=== PATIENT | male | born 1960 | race Caucasian/White ===

== ENCOUNTER 2024-04-22 07:13 | Inpatient (IN) ==
--- OUTSIDE RECORDS SUMMARY | 2024-04-22 07:20 | External Medical Summary | Summary of Care ---
Author Name Unknown Organization [facility] Address [address] [facility] [place] [address] Phone [phone] Care Team Providers Care Sex Therapist Name Role Phone Luda Floyd DO Primary Care Provider [phone] Reason for Visit * Reason Onset Date Comments Medication Refill 04/09/2024 Encounter Details Date Type Department Care Team (Late st Contact Info) Description 04/09/2024 [facility]ill [facility] [address] [facility] [place] [phone] Luda Floyd DO [address] [facility] [place] [id number] Dyslipidemia, goal LDL below 100 Allergies No known active allergiesdocumented as of this encounter (statuses as of 04/10/2024) Medications Lisinopril 10 MG Oral Tablet (Prinivil)Indicat ions:Essential hypertension with goal blood pressure less than 140/90 Take 1 Tablet by mouth in the morning. 90 Tablet 3 4 Active Metoprolol Succinate ER 50 MG Oral Tablet Extended Release 24 Hour (toPROL XL)Indications:HT N, goal below 140/90 TAKE 1 TABLET BY MOUTH EVERY MORNING 90 Tablet 3 4 Active Eliquis 5 MG Oral Tablet (Apixaban)Indicat ions:Paroxysmal atrial fibrillation (HCC) TAKE 1 TABLET BY MOUTH TWICE DAILY EVERY MORNING AND BEFORE BEDTIME 180 Tablet 3 4 Active amLODIPine Besylate 5 MG Oral Tablet (Norvasc)Indicati ons:Palpitations, Left chest pressure,Diastoli c dysfunction TAKE ONE TABLET BY MOUTH EVERY MORNING 90 Tablet 1 4 Active Famotidine 20 MG Oral Tablet (Pepcid)Indicatio ns:Gastroesophage al reflux disease without esophagitis TAKE ONE TABLET BY MOUTH NIGHTLY AT BEDTIME 90 Tablet 1 5 Active Pantoprazole Sodium 20 MG Oral Tablet Delayed Release (Protonix)Indicat ions:Gastroesopha geal reflux disease without esophagitis TAKE 1 TABLET BY MOUTH TWICE DAILY every morning and every evening 180 Tablet 1 04/06/2024 6:35 PM EST 5 Active Multivitamin Adult Oral Tablet Take by mouth. Active Atorvastatin Calcium 10 MG Oral Tablet (Lipitor)Indicati ons:Dyslipidemia, goal LDL below 100 Take 1 Tablet by mouth in the morning. 90 Tablet 3 5 Active Atorvastatin Calcium 10 MG Oral Tablet (Lipitor)Indicati ons:Dyslipidemia, goal LDL below 100 Take 1 Tablet by mouth in the morning. 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 Diastolic dysfunction 10/26/2011 Abnormal electrocardiogram 04/24/2011 Dyslipidemia, goal LDL below 100 HTN, goal below 140/90 documented as of this encounter (statuses as of 04/10/2024) Resolved Problems Problem Noted Date Diagnosed Date Resolved Date Dermatitis 01/30/2016 02/04/2017 Palpitations 08/13/2015 02/04/2017 Left chest pressure 07/11/2015 02/05/20 17 Screening for prostate cancer 07/11/2015 02/04/2017 Overweight (BMI 25.0-29.9) 12/07/2014 1 04/07/2016 Overview (12/07/2014): bmi= 25.52 12/07/[address] of liver 12/07/2014 12/07/2 017 Need for shingles vaccine 12/07/2014 Abnormal serum lipase level 10/03/2014 02/04/2017 Abnormal results of liver function studies 10/03/2014 02/04/2017 Cervicalgia 05/31/2014 02/04/2017 Screen for colon cancer 05/31/201408/29 Special screening for malign ant neoplasm of prostate 05/31/2014 09/08/2014 INFORMATION 05/31/2014 02/04/2017 Overview (05/31/2014): 10-year-old cardiovascular risk is 9% Spasm of muscle 12/20/2013 12/07/2014 Chest discomfort 06/26/2013 12/07/2014 Overweight (BMI 25.0-29.9) 05/26/2013 1 04/07/2016 Overview (05/26/2013): bmi= 26.78 05/26/13 Rectal hemorrhage 11/25/2012 12/07/2014 Internal hemorrhoids with other complication 3 12/07/2014 Hand dermatitis 05/05/2012 02/04/2017 Refused influenza vaccine 12/09/2011 Overweight (BMI 25.0-29.9) 10/26/2011 1 04/07/2016 Overview (10/26/2011): bmi= 26.71 10/26/11 Routine medical exam 10/26/2011 015 Special screening for malign ant neoplasm of prostate 10/26/2011 09/08/2014 Screen for colon cancer 10/26/201108/29 Gastroesophageal reflux 10/26/2011/04/2013 Special screening for malign ant neoplasm of prostate 04/24/2011 05/26/2013 DIASTOLIC DYSFUNCTION 04/24/20112011 OVERWEIGHT, BMI= 26.08 10/22/10 10/22/2010 02/04/2017 Esophageal reflux 07/22/2010 10/26/2011 Chest pain 06/30/2010 12/07/2014 Headache 06/30/2010 09/08/2014 Overview (05/22/2015): ICD-10 update of inactive term DIASTOLIC DYSFUNCTION 06/02/20102010 OVERWEIGHT, BMI= 26.92 05/26/10 05/26/2010 12/07/2014 Abnormal electrocardiogram 05/26/2010 0 04/24/2011 Elevated prostate specific antigen (PSA) 05/26/2010 11/30/2013 Special screening for malign ant neoplasms, colon 05/26/2010 09/08/2014 CLASSICAL MIGRAINE WITHOU ME NTION OF INTRACTABLE MIGRAINE 01/30/1998 12/07/2014 Esophagitis 10/22/2010 Overview (11/30/2016): ICD-10 update of inactive term HTN, goal below 140/90 11/25 Cluster headaches 12/07/2014 Kidney disease, chronic, sta ge II (GFR 60-89 ml/min) 12/09/2011 documented as of this encounter (statuses as of 04/10/2024) Immunizations Name Administration Dates Next Due COVID-19 mRNA, LNP-s, No Pre serve, 2-Dose Series (Moderna) 07/18/2020,06/20/2020 TDAP (age 10 and older)(Boostrix) 03/15/2012 Zoster Vaccine Recombinant (Shingrix) 01/29/2022 ,09/07/2019 documented as of this encounter Social History Tobacco Use Types Packs/Day Years Used Date Smoking Tobacco: Never Passive Smoke Exposure: Past Smokeless Tobacco: Never Alcohol Use Standard Drinks/Week Comments Yes 0 (1 standard drink = 0.6 oz pur e alcohol) 3 beers per year PHQ-2 Answer Date Recorded PHQ-2 Score 1 03/13/2018 Hunger Vital Sign Answer Date Recorded Within the past 12 months, y ou worried that your food would run out before you got the money to buy more. Never true 08/03/19 24 Within the past 12 months, t he food you bought just didn't last and you didn't have money to get more. Never true 08/03/2023 Childcare Answer Date Recorded Do you feel overwhelmed with taking care of a child, family member or friend? No 08/03/2023 Does your family need help f inding childcare? (Household - for ages 0-17 years) Not on file 08/03/2023 Clothing Answer Date Recorded Have you been unable to get clothing when it was really needed? No 08/03/2023 Is your family able to get c lothes or diapers when needed? (Household - for ages 0-17 years) Not on file 08/03/2023 Personal Safety Answer Date Recorded Do you feel unsafe or have concerns for your saf ety? No 08/03/2023 Do you have concerns for you r family's safety? (Household - for ages 0-17 years) Not on file 08/03/2023 Utilities Answer Date Recorded Do you have trouble paying y our heating, water, or electric bill? No 08/03/2023 Is your family able to pay t he heat, water, or electric bill? (Household - for ages 0-17 years) Not on file 08/03/2023 Does your family have access to good internet? (Household - for ages 0-17 years) Not on file 08/03/2023 Employment Status Answer Date Recorded Are you unemployed or without regular income? No 08/03/2023 Does the household have a re lar source of income? (Household - for ages 0-17 years) Not on file 08/03/2023 Social Connections Answer Date Recorded How often do you feel lonely or isolated from th ose around you? Never 08/03/2023 Financial Resource Strain Answer Date R ecorded Do you have any trouble payi ng for your medications, or do you think you might in the future? No 08/03/2023 Does your family have troubl e paying for medicine? (Household - for ages 0-17 years) Not on file 08/03/2023 Transportation Needs Answer Date Record ed READ ONLY Do you have troubl e getting a ride to medical visits or work? Never True 08/03/2023 Does your family have a hard time getting a ride to doctors visits? (Household - for ages 0-17 years) Not on file 08/03/2023 Has lack of transportation k ept you from medical appointments, meetings, work, or from getting things needed for daily living? Check all that apply. (Adult - for ages 18 years and over) Not on file 08/03/2023 Do you (or your family) have trouble finding or paying for a ride (transportation)? (Household - for ages 0-17 years) Not on file 08/03/2023 Housing Stability Answer Date Recorded Do you currently live in a s helter or have no steady place to sleep at night? No 08/03/2023 READ ONLY Do you think you a re at risk of becoming homeless? No 08/03/2023 Does your family worry about paying for your home or becoming homeless? (Household - for ages 0-17 years) Not on file 0 08/03/2023 Are you homeless or worried that you might be in the future? (Adult - for ages 18 years and over) Not on file Are you (or your family) terrie eless or worried that you might be in the future? (Household - for ages 0-17 years) Not on file Food Insecurity Answer Date Recorded Do you need food for this week? No 08/03/2023 Are you able to get enough f ood for your family? (Household - for ages 0-17 years) Not on file 08/03/2023 Does your family need food t his week? (Household - for ages 0-17 years) Not on file 08/03/2023 Do you always have enough fo od for your family? (Household - for ages 0-17 years) Not on file 08/03/2023 Food Insecurity Answer Date Recorded Within the past 12 months, y ou worried that your food would run out before you got the money to buy more. Never true 08/03/19 24 Within the past 12 months, t he food you bought just didn't last and you didn't have money to get more. Never true 08/03/2023 Do you need food for this week? No 08/03/2023 Sex and Gender Information Value Date Recorded Sex Assigned at Male 06/16/2018 9:31 AM EDT Legal Sex Male 6:03 AM EST Gender Identity Male 06/16/2018 9:31 AM EDT Sexual Orientation Straight 06/16/2018 9: 31 AM EDT Occupation Industry Job Start Date Job End Date [employer] Not on file Not on file Not on file documented as of this encounter Miscellaneous Notes * Telephone Encounter - Laura Torres, [facility] - 04/10/2024 12:48 PM EST Signed Prescriptions: Disp Refills Atorvastatin Calcium 10 MG Oral Tablet (Li*90 Tab*3 Sig: Take 1 Tablet by mouth in the morning.Authorizing Provider: LUDA FLOYD User: LAURA TORRES documented in this encounter Plan of Treatment Upcoming Encounters Date Type Department Care Team (Latest Contact Info) Description 04/11/2024 9:15 AM EST Hospital Encounter ENDO [facility], Endoscopy Room [facility] [address] [place] [phone] Cami Kerns MD [address] [place] [phone] 04/11/2024 9:15 AM EST - 04/11/2024 10:00 AM EST Surgery ENDO [facility], Endoscopy Room [facility] [address] [place] [phone] Cami Kerns MD [address] [place] [phone] ESOPHAGOGASTRODUODENOSCOPY (EGD), FLEXIBLE, TRANSORAL, ENDOSCOPIC ULTRASOUND 09/25/2024 9:50 AM EDT Office [facility] [address] [place] [phone] Luda Floyd DO [address] [place] [phone] 03/19/2025 8:15 AM EST Office Visit Dermatology [facility] [place] [address] [facility] [place] [address] Stewart Villarreal MD [address] [facility] [place] [address] 04/10/2025 8:00 AM EST Office Visit Cardiology, [facility] [address] [place] [place] [address] Ashlie Briggs CRNP [address] [place] [id number] Scheduled Procedures Name Priority Associated Diagnoses Date/Ti me ESOPHAGOGASTRODUODENOSCOPY ( EGD), FLEXIBLE, TRANSORAL, ENDOSCOPIC ULTRASOUND Elevated alkaline phosphatase level 04/11/2024 9:15 AM EST COLONOSCOPY FLEXIBLE PROXIMA L DIAGNOSTIC Recall History of colon polyps ESOPHAGOGASTRODUODENOSCOPY ( EGD), FLEXIBLE, TRANSORAL, DIAGNOSTIC Recall Joaquin's esophagus Health Maintenance Due Date Last Done Comments Cologuard 02/25/2004 Sigmoidoscopy 02/25/2004 Pneumococcal Vaccine: 50+ Years (1 of 1 - PCV) 2009 Fecal Occult Blood Test 06/08/2014 06/08/2013, 05/12 Depression Screening 03/08/2019 03/08/2018, 06/01/19 15 DTap/Tdap Vaccines (2 - Td or Tdap) 03/15/2022 03/15/2012 COVID-19 Vaccine (3 - season) 2023 07/18/2020, 06/20/2020 Influenza Vaccine (FLU shot) (#1) 2023 GFR 03/10/2025 03/10/2024, 10/30, 02/01/2023, Additional history exists Joaquin's Esophagus Surveilance 08/03/2025 08/03/2022, 08/03/2022, 09/15/2019, Additional history exists Albumin/Creatinine Ratio 05/10/2026 032 024, 01/29/2022, 06/02/2010 Diabetes Screening 03/10/2027 03/10/2024, 0 11/17/2023, 02/01/2023, Additional history exists Colonoscopy 08/04/2027 08/03/2022, 06/2022, 09/15/2019, Additional history exists Colorectal Cancer Screening 08/04/2027 Lipid Panel 03/10/2029 03/10/2024, 05/2022, 01/29/2022, Additional history exists Zoster Vaccines Completed 01/29/2022, 09/07/2019 RETIRED - COLONOSCOPY-EVERY 5 YRS AGES 18-100 Discontinued 08/03/2022, 08/03/2022, 09/15/2019, Additional history exists HPV (Gardasil) Vaccine Aged Out No lo nger eligible based on patient's age to complete this topic Hepatitis B Vaccine Aged Out No longe r eligible based on patient's age to complete this topic MENINGOCOCCAL (MENACTRA/MENVEO) Aged Out No longer eligible based on patient's age to complete this topic documented as of this encounter Medical Devices Not on filedocumented as of this encounter Visit Diagnoses Diagnosis Dyslipidemia, goal LDL below 100 Other and unspecified hyperlipidemia Elevated alkaline phosphatase level Other nonspecific abnormal serum enzyme levels documented in this encounter Care Teams Sex Therapist Relationship Specialty Start Date End Date Luda Floyd DO [address] [place] [phone] PCP - General Family Medicine 03/30/24 documented as of this encounter
--- OUTSIDE RECORDS SUMMARY | 2024-04-22 07:20 | External Medical Summary | Summary of Care ---
Author Name Unknown Organization [facility] Address [address] [place] [address] Phone [phone] Care Team Providers Care Cook Night Name Role Phone JassXin robledo Rosario VAUGHN Primary Care Provider [phone] Reason for Visit * Reason Comments Follow Up Encounter Details Date Type Department Care Team (Late st Contact Info) Description 04/06/2024 8:30 AM EST Office Visit Cardiology, [facility] [address] [place] [id number] Ashlie Briggs CRNP [address] [place] [phone] Preoperative cardiovascular examination*; Palpitations; Paroxysmal atrial fibrillation (HCC); HTN, goal below 140/90; Dyslipidemia, goal LDL below 100 Allergies No known active allergiesdocumented as of this encounter (statuses as of 04/06/2024) Medications Lisinopril 10 MG Oral Tablet (Prinivil)Indicat [...] EVERY MORNING 90 Tablet 1 4 Active Atorvastatin Calcium 10 MG Oral Tablet (Lipitor)Indicati ons:Dyslipidemia, goal LDL below 100 Take 1 Tablet by mouth in the morning. 90 Tablet 1 4 Active Famotidine 20 MG Oral Tablet (Pepcid)Indicatio ns:Gastroesophage al reflux disease without esophagitis TAKE ONE TABLET BY MOUTH NIGHTLY AT BEDTIME 90 Tablet 1 5 Active Pantoprazole Sodium 20 MG Oral Tablet Delayed Release (Protonix)Indicat ions:Gastroesopha geal reflux disease without esophagitis TAKE 1 TABLET BY MOUTH TWICE DAILY every morning and every evening 180 Tablet 1 5 Active Multivitamin Adult Oral Tablet Take by mouth. 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 GERD (gastroesophageal reflux disease) 4 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 Diastolic dysfunction 10/26/2011 Abnormal electrocardiogram 04/24/2011 Dyslipidemia, goal LDL below 100 HTN, goal below 140/90 documented as of this encounter (statuses as of 04/06/2024) Resolved Problems Problem Noted Date Diagnosed Date Resolved Date Dermatitis 01/30/2016 02/04/2017 Palpitations 08/13/2015 02/04/2017 Left chest pressure 07/11/2015 02/05/20 17 Screening for prostate cancer 07/11/2015 02/04/2017 Overweight (BMI 25.0-29.9) 12/07/2014 1 04/07/2016 Overview (12/07/2014): bmi= 25.52 12/07/[address] of liver 12/07/2014 017 Need for shingles vaccine 12/07/2014 Abnormal [...] Screen for colon cancer 10/26/201108/29 Gastroesophageal reflux 10/26/201104/2013 Special screening for malign ant neoplasm of [...] as of this encounter (statuses as of 04/06/2024) Immunizations Name Administration Dates Next Due COVID-19 [...] Industry Job Start Date Job End Date [employer] Not on file Not on file Not on file documented as of this encounter Last Filed Vital Signs Vital Sign Reading Time Taken Comments Blood Pressure 112/78 04/06/2024 8:17 AM EST Pulse 64 04/06/2024 8:17 AM EST Temperature - - Respiratory Rate 16 04/06/2024 8:17 AM EST Oxygen Saturation - - Inhaled Oxygen Concentration - - Weight 81.6 kg (180 lb) 04/06/2024 8:17 AM EST Height - - Body Mass Index 25.1 04/05/2024 9:00 AM EST documented in this encounter Patient Instructions * Patient Instructions* Ashlie Briggs CRNP - 04/06/2024 8:54 AM EST May hold Eliquis 2 days prior to the procedure, and resume the day after the procedure. Please ensure that you take your Metoprolol the day of the procedure with a sip of water. documented in this encounter Progress Notes * Ashlie Briggs CRNP - 04/06/2024 8:30 AM EST 04/05/2024 Cardiology Follow Up Primary Reservationist: Dr. Floyd Cardiac Problems: Paroxysmal Atrial fibrillation Hypertension Dyslipidemia Aortic athrosclerosis Chronic atypical chest pain HPI: Jd Sarah is a 64 year old male presents for routine cardiology follow up. Last seen in our office by the undersigned 03/2023 stable from a cardiac perspective. Presents today feeling ok from a cardiac perspective. He has rare episodes of chest discomfort. Walks on a regular basis on the treadmill. 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 He will go, sit down, get a drink and rest, episodes resolve. He feels palpitations with these episodes. The chest discomfort episodes feel like the brakes are coming on in the heart followed by a strong beat. Possible PVC BP well controlled. Compliant on all medication therapies with untoward effects. He is scheduled to have an EGD with Liver biopsy with Dr. Kerns next week. Needs Eliquis instructions. EKG today NSR, no acute ST-T wave changes. REVIEW OF SYSTEMS: See HPI for pertinent positives. All others negative other than those noted in the HPI. CONSTITUTIONAL: No change in weight, No weakness, No fatigue and No fevers, No sweats or chills. PULMONARY: No cough, sputum, or hemoptysis, No wheezing, No shortness or breath and No recent change in breathing. CARDIOVASCULAR: No chest pain, No dyspnea on exertion, No edema, No palpitations and No syncope. GASTROINTESTINAL: No abdominal pain, No change in bowel habits, No significant heartburn, No nausea, No vomiting, No diarrhea, No constipation, No blood in stools or black tarry stools. No dysphagia. HEMATOLOGIC: No abnormal bleeding and No bruising. NEUROLOGICAL: Normal balance, No headaches and No weakness. Review of patient's allergies indicates: No Known Allergies Current Outpatient Medications Medication Sig Dispense Refill Lisinopril 10 MG Oral Tablet (Prinivil) Take 1 Tablet by mouth in the morning. 90 Tablet 3 Metoprolol Succinate ER 50 MG Oral Tablet Extended Release 24 Hour (toPROL XL) TAKE 1 TABLET BY MOUTH EVERY MORNING 90 Tablet 3 Eliquis 5 MG Oral Tablet (Apixaban) TAKE 1 TABLET BY MOUTH TWICE DAILY EVERY MORNING AND BEFORE BEDTIME 180 Tablet 3 amLODIPine Besylate 5 MG Oral Tablet (Norvasc) TAKE ONE TABLET BY MOUTH EVERY MORNING 90 Tablet 1 Atorvastatin Calcium 10 MG Oral Tablet (Lipitor) Take 1 Tablet by mouth in the morning. 90 Tablet 1 Famotidine 20 MG Oral Tablet (Pepcid) TAKE ONE TABLET BY MOUTH NIGHTLY AT BEDTIME 90 Tablet 1 Pantoprazole Sodium 20 MG Oral Tablet Delayed Release (Protonix) TAKE 1 TABLET BY MOUTH TWICE DAILYevery morning and every evening 180 Tablet 1 Multivitamin Adult Oral Tablet Take by mouth. No current facility-administered medications for this visit. Past Medical History: Diagnosis Date Joaquin's esophagus 12/07/2013 repeat EGD 6 mo BPH with obstruction/lower urinary tract symptoms 10/21/2012 Cluster headaches Diastolic dysfunction 10/26/201106/12 class II to class I Dyslipidemia, goal LDL below 100 06/09 Esophagitis, unspecified Herpes HTN, goal below 140/90 INFORMATION 05/31/2014 9-year-old cardiovascular risk is 9% Family History Problem Relation Name Age of Onset Mental Disorder Mother Diabetes Father Hypertension Father Cancer None Heart Disorder None Stroke None Social History Socioeconomic History Marital status: Occupational History Occupation: Vocab Comment: [employer] Tobacco Use Smoking status: Never Passive exposure: Past Smokeless tobacco: Never Substance and Sexual Activity Alcohol use: Yes Comment: 3 beers per year Drug use: No Comment: cup of tea and pepsi Sexual activity: Yes Partners: Female Comment: no problems Social History Narrative 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 (Adult - for ages 18 years and over): No Food Insecurity: No Food Insecurity (08/03/2023) Food Insecurity Worried About Running Out of Food in the Last Year: Never true Ran Out of Food in the Last Year: Never true Do you need food for this week? (Adult - for ages 18 years and over): No Transportation Needs: No Transportation Needs (08/03/2023) Transportation Needs Do you have trouble getting a ride to medical visits or work? (Adult - for ages 18 years and over):Never True Social Connections: Socially Integrated (08/03/2023) Social Connections How often do you feel lonely or isolated from those around you? (Adult - for ages 18 years and over): Never Housing Stability: Low Risk (08/03/2023) Housing Stability Do you currently live in a custodial or have no steady place to sleep at night? (Adult - for ages 18 years and over): No Do you think you are at risk of becoming homeless? (Adult - for ages 18 years and over): No OBJECTIVE/PHYSICAL EXAMINATION: BP 112/78 (BP Site: Left Arm, BP Position: Sitting) | Pulse 64 | Resp 16 | Wt 81.6 kg (180 lb) | BMI 25.10 kg/m | BSA 2.02 m General: No acute distress. A+Ox3. HEENT: Normocephalic. Atraumatic. PERRL. EOMI. Conjunctiva and sclera clear. NECK: No carotid bruits. No JVD. Carotid upstrokes are brisk. Heart: RRR. S1 and S2 noted. No murmur. No rubs or gallops. PMI non displaced. Lungs: Clear to auscultation. No wheezes.No rhonchi. No rales. Abdomen: Normal bowel sounds. Soft. Nontender. No masses or organomegaly. No abdominal bruits. Extremities: No edema. No clubbing or cyanosis. Pulses: radial=2/4, posterior tibial=2/4, dorsalis pedis = 2/4. NEURO: No focal deficits. PSYCH: Appropriate affect and insight. DATA Labs & Imaging Reviewed Below: EKG 11/17/2023 NSR Rate 65bpm EKG 12/19/2021 NSR Rate 70bpm Stress echocardiogram 05/15/2021 Interpretation Summary The examination is adequate to evaluate the referral indication. The stress echo is negative for inducible ischemia. Exercise capacity is above average . Heart rate response tostress was normal. Blood pressure response to exercise was hypertensive. The stress EKG response showed no evidence of ischemia. No arrhythmias were noted with stress. The left ventricular wall motion is normal. The left ventricular wall motion with stress is normal. The left ventricular ejection fraction increases normally with stress. The left ventricular systolic function is normal. The qualitative LV ejection fraction is 60-64% (normal). Compared to prior study of May 16, 2020, there is no significant change. ASSESSMENT/PLAN: 64 year old year old male 1. Preoperative cardiovascular examination -Patient is stable from a cardiac perspective with no decline in functional capacity -EKG with no acute changes. -per Rajiv Criteria, patient was counseled that he would be placed at a low/intermediate risk for anyadverse perioperative cardiovascular events associated with EGD/Liver biopsy procedure. Patient is on a good medication regimen and no other cardiac testing or interventions would further lower that r isk. Patient states he understands and is accepting of that risk and wishes to proceed with surgery. - EKG -Patient may hold his Eliquis 2 days prior to his procedure date, and plan to resume the day after his procedure. -Encouraged patient to take his Metoprolol the AM of procedure with a sip of water. 2. Palpitations 3. Paroxysmal atrial fibrillation (HCC) - EKG, no acute changes, no ectopy -Patient has two different chest discomfort/palpitation feelings and these may be reflective of hisA-fib as well as likely ectopy such as PVC -Encouraged to make any pattern notation and notify me as we may adjust his Metoprolol. If symptomspersist/worsen or we are struggling to find a pattern, would consider repeating protracted cardiac monitoring with a ZIO -Continue Eliquis and Metoprolol. Preop instructions as noted above. 4. HTN, goal below 140/90 -Well controlled. -Continue Amlodipine, Lisinopril and Metoprolol succinate 5. Dyslipidemia, goal LDL below 100 -yearly lipid panel -Continue Atorvastatin as per current regimen DISPOSITION: Follow up 1 year or if symptoms worsen/fail to improve. All questions were answered to the patients satisfaction. Patient advised to report to ED with any and all emergencies. The patient agrees to the above plan and will call with additional questions or concerns. [facility], [address] [place] [address] I spent a total of 30 minutes on the date of service in preparation, delivery, and documentation ofthe care provided to Jd Sarah excluding any time spent in the performance of separately billed services. This chart was completed in part utilizing [employer] Speech Voice Recognition Software. Grammatical errors, random word insertions, pronoun errors, and incomplete sentences are an occasional consequence of this system due to software limitations, ambient noise, and hardware issues. Any formal questions or concerns about the content, text, or information contained within the body of this dictation should be directly addressed to the provider for clarification. documented in this encounter Nursing Notes * Janna Biswas CMA - 04/06/2024 8:17 AM EST Examination Room: 4 Name: Jd Sarah Date of : (1960). Reason for Visit: follow up Interim Hospitalization(s): denies Problems/Concerns: denies Chest Pain/SOB: denies [facility] Discussed: Yes [facility] is a way you can talk to your provider online through e-mail. Would you like to sign up? I can activate it for you? ALREADY ACTIVE Patient was instructed to not get up on the exam table until directed and assisted by their provider; patient is to remain seated in the chair/ wheelchair/ exam table for fall prevention and safety reasons. Patient is aware to have assistance to step down off exam table with personnel. Patient voiced full comprehension of instructions. documented in this encounter Plan of Treatment Upcoming Encounters Date Type Department Care Team (Latest Contact Info) Description 04/11/2024 9:15 AM EST Hospital Encounter [facility]O [facility], Endoscopy Room [facility] [address] [place] [phone] Cami Kerns MD [address] [place] [address] 04/11/2024 9:15 AM EST - 04/11/2024 10:00 AM EST Surgery ENDO [facility], Endoscopy Room [facility] [address] [place] [phone] Cami Kerns MD [address] [place] [address] ESOPHAGOGASTRODUODENOSCOPY (EGD), FLEXIBLE, TRANSORAL, ENDOSCOPIC ULTRASOUND 09/25/2024 9:50 AM EDT Office Visit [facility] [address] [place] [phone] Xin Floyd DO [address] [place] [address] 03/19/2025 8:15 AM EST Office Visit Dermatology [facility] [address] [facility] [place] [address] Stewart Villarreal MD [address] [facility] [place] [address] 04/10/2025 8:00 AM EST Office Visit Cardiology, [facility] [address] [place] [address] Ashlie Briggs CRNP [address] [place] [address] Scheduled Orders Name Type Priority Associated Diagnoses Orde r Schedule EKG EKG Routine Preoperative cardiovascular examination Palpitations Paroxysmal atrial fibrillation (HCC) Ordered: 04/06/2024 Scheduled Procedures Name Priority Associated Diagnoses Date/Ti [...] 09/15/2019, Additional history exists Albumin/Creatinine Ratio 05/10/2026 024, 01/29/2022, 06/02/2010 Diabetes Screening 03/10/2027 03/10/2024, [...] as of this encounter Visit Diagnoses Diagnosis Preoperative cardiovascular examination- Primary Pre-operative cardiovascular examination Palpitations Paroxysmal atrial fibrillation (HCC) Atrial fibrillation HTN, goal below 140/90 Unspecified essential hypertension Dyslipidemia, goal LDL below 100 Other and unspecified hyperlipidemia Elevated alkaline phosphatase level Other nonspecific abnormal serum enzyme levels documented in this encounter Care Teams Cook Night Relationship Specialty Start Date End Date Xin Floyd DO [address] [place] [address] PCP - General Family Medicine 03/30/24 documented as of this encounter"
--- OUTSIDE RECORDS SUMMARY | 2024-04-22 07:20 | External Medical Summary | Summary of Care ---
Author Name Unknown Organization [facility] Address [address] [facility] [place] [address] Phone [phone] Care Team Providers Care Nephrologist Name Role Phone Everett Xin Rosario VAUGHN Primary Care Provider [phone] Reason for Visit * Auth/Cert Specialty Diagnoses / Procedures Referred By Thiago bonner Referred To Contact Diagnoses Elevated alkaline phosphatase level Elevated alkaline phosphatase level [R74.8] Procedures EGD, W/ENDOSCOPIC US ESOPHAGOGASTRODUODENOSCOPY (EGD), FLEXIBLE, TRANSORAL, ENDOSCOPIC ULTRASOUND Cami Kerns MD [address] [place] [address] Phone: tel: fax: ENDO [facility], Endoscopy Room [facility] [address] [place] [address] Phone: tel: Referral ID Status Reason Start Date Expiration Date Visits Re quested Visits Authorized [id number] Encounter Details Date Type Department Care Team (Latest Contact Info) Description 04/11/2024 8:09 AM EST - 04/11/2024 11:04 AM [facility] Hospital Encounter ENDO [facility], Endoscopy Room [facility] [address] [place] [phone] Cami Kerns MD [address] [place] [address] Upper Endoscopic US Discharge Disposition: Home - Self Care Allergies No known active allergiesdocumented as of this encounter (statuses as of 04/12/2024) Medications Lisinopril 10 MG Oral Tablet (Prinivil)Indicat [...] BEFORE BEDTIME 180 Tablet 3 4 Active Famotidine 20 MG Oral Tablet [...] the morning. 90 Tablet 3 5 Active amLODIPine Besylate 5 MG Oral Tablet (Norvasc)Indicati ons:Palpitations, Left chest pressure,Diastoli c dysfunction TAKE ONE TABLET BY MOUTH EVERY MORNING 90 Tablet 1 4 04/11/19 25 Discontinu ed(Refill) Atorvastatin Calcium 10 MG Oral Tablet (Lipitor)Indicati ons:Dyslipidemia, goal LDL below 100 Take 1 Tablet by mouth in the morning. 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 Not on file Not on file documented as of this encounter Last Filed Vital Signs Vital Sign Reading Time Taken Comments Blood Pressure 118/74 04/11/2024 10:35 AM EST Pulse 57 04/11/2024 10:35 AM EST Temperature 36.3 C (97.4 F) 04/11/2024 10:[address] Respiratory Rate 16 04/11/2024 10:35 AM EST Oxygen Saturation 100% 04/11/2024 10:35 AM EST Inhaled Oxygen Concentration - - Weight 78 kg (172 lb) 04/05/2024 9:00 AM EST Height 180.3 cm (5' 11") 04/05/2024 9:00 AM EST Body Mass Index 23.99 04/05/2024 9:00 AM EST documented in this encounter H&P Notes * Cami Kerns MD - 04/11/2024 8:21 AM EST Endoscopy Pre-Procedure Assessment Name: Jd Sarah Date: 04/11/2024 Time: 8:21 AM Procedure(s): Endoscopic Ultrasound; with Indication(s) of FNA/FNB of lesions/tissue within or outside the GI tract Endoscopy Pre-Procedure Assessment: Prior to the procedure, the patient was identified. The patient's history, medications and allergies were reviewed as per the Anesthesia Assessment. The patient is competent. The risks and benefits of the proposed procedure and the planned sedation were discussed with the patient. All questions were answered and informed consent for the procedure was obtained. Ht 1.803 m (5' 11") | Wt 78 kg (172 lb) | BMI 23.99 kg/m | BSA 1.98 m Review of patient's allergies indicates: No Known Allergies Prior to Admission medications Medication Sig Last Dose Discont. Atorvastatin Calcium 10 MG Oral Tablet (Lipitor) Take 1 Tablet by mouth in the morning. 04/11/2024 Morning Multivitamin Adult Oral Tablet Take by mouth. Past Month Pantoprazole Sodium 20 MG Oral Tablet Delayed Release (Protonix) TAKE 1 TABLET BY MOUTH TWICE DAILYevery morning and every evening 04/11/2024 Morning Famotidine 20 MG Oral Tablet (Pepcid) TAKE ONE TABLET BY MOUTH NIGHTLY AT BEDTIME 04/10/2024 amLODIPine Besylate 5 MG Oral Tablet (Norvasc) TAKE ONE TABLET BY MOUTH EVERY MORNING 04/11/2024 Morning Eliquis 5 MG Oral Tablet (Apixaban) TAKE 1 TABLET BY MOUTH TWICE DAILY EVERY MORNING AND BEFORE BEDTIME 04/08/2024 Metoprolol Succinate ER 50 MG Oral Tablet Extended Release 24 Hour (toPROL XL) TAKE 1 TABLET BY MOUTH EVERY MORNING 04/11/2024 Morning Lisinopril 10 MG Oral Tablet (Prinivil) Take 1 Tablet by mouth in the morning. 04/10/2024 Physical Exam: Mental Status Examination: alert and oriented. Airway Examination: normal oropharyngeal airway and neck mobility. Respiratory Examination: clear to auscultation. CV Examination: Regular rate and rythm, no murmurs. ASA Grade: II - A patient with mild systemic disease. After reviewing the risks and benefits, the patient was deemed in satisfactory condition to undergothe procedure. The anesthesia plan was to use sedation. Patient was explained in detail regarding risks, benefits, limitations and alternatives of the above endoscopic procedure. Risks of intravenous sedation used for procedure were also explained. Risks include, but not limited to perforation, bleeding, infection, respiratory distress, cardiac arrest and . Risk of acute pancreatitis and necrosis if ERCP is done. Patient is also aware about the possibility of missed lesion. Patient's questions were answered. The patient verbalized understandingthe information and agreed to undergo the procedure. Discussed with the patient that he/she is at an explicit higher risk for complications in comparison to other patients Cami Kerns MD 04/11/2024 documented in this encounter Procedure Notes * Carol Harper MD - 04/11/2024 9:11 AM ESTAssociated Order(s): UPPER ENDOSCOPIC U/S [facility] Patient Name: Jd Sarah Procedure Date: 04/11/2024 9:11 AM Date of : 1960 Admit Type: Outpatient Note Status: Finalized Date of : 1960 Admit Type: Outpatient Age: 64 Room: Advanced [facility] Gender: Male Note Status: Finalized Procedure: Upper EUS Indications: Elevated alkaline phosphatase Providers: Cami Kerns MD (Doctor), Abilio Scruggs RN Referring MD: Carol Harper MD (Referring MD), Xin Folyd DO (Referring ) Medicines: Propofol per Anesthesia Complications: No immediate complications. Procedure: Pre-Anesthesia Assessment: - Prior to the procedure, a History and Physical was performed, and patient medications, allergies and sensitivities were reviewed. The patient's tolerance of previous anesthesia was reviewed. - The risks and benefits of the procedure and the sedation options and risks were discussed with the patient. All questions were answered and informed consent was obtained. - Patient identification and proposed procedure were verified prior to the procedure by the physician and the nurse. The procedure was verified in the procedure room. - Pre-procedure physical examination revealed no contraindications to sedation. After obtaining informed consent, the endoscope was passed under direct vision. All instruments were visually inspected immediately before and after removal from the patient to ensure they are fully intact. Throughout the procedure, the patient's blood pressure, pulse, and oxygen saturations were monitored continuously. The upper EUS was accomplished without difficulty. The patient tolerated the procedure well. The Endosonoscope was introduced through the mouth, and advanced to the second part of duodenum. Findings & Specimens: ENDOSONOGRAPHIC FINDING: : There was no sign of significant endosonographic abnormality in the ampulla. No masses were identified. There was no sign of significant endosonographic abnormality in the common bile duct. The maximum diameter of the duct was 4 mm. Evidence of a previous cholecystectomy was identified endosonographically. There was no sign of significant endosonographic abnormality in the visualized portion of the liver. Homogeneous parenchyma was identified. Fine needle biopsy was performed. Color Doppler imaging was utilized prior to needle puncture to confirm a lack of significant vascular structures within the needle path. One pass was made with the 19 gauge ultrasound core biopsy needle using a transduodenal approach. A visible core of tissue was obtained. Verification of patient identification for the specimen was done by the physician and nurse using the patient's name and date. The pathology specimen was placed into Bottle A. There was no sign of significant endosonographic abnormality in the entire pancreas. The pancreatic duct measured up to 2 mm in diameter. Impression: - There was no sign of significant pathology in the ampulla. - There was no sign of significant pathology in the common bile duct. - Evidence of a cholecystectomy. - There was no evidence of significant pathology in the visualized portion of the liver. Fine needle biopsy performed. - There was no sign of significant pathology in the entire pancreas. Recommendation: - Discharge patient to home. - Await path results. - Return to referring physician. Cami Kerns MD 04/11/2024 9:35:18 AM This report has been signed electronically. documented in this encounter Nursing Notes * Janna Souza RN - 04/11/2024 11:03 AM EST Patient is alert, pain free, passing flatus and tolerating po fluids prior to discharge. Patient has been visited by Dr. Kerns. Patient has received and demonstrates understanding of discharge instructions. Patient is transported via ambulated to private auto accompanied by endo staff. * Janna Souza RN - 04/11/2024 9:35 AM EST Patient transferred to pacu 2 status post EUS. Patient sleeping. Respirations are even and unlabored on 3L nasal cannula. Abdomen soft and non distended. Vital signs stable. Report was received from ERNIE. RN at bedside. Call chery is available to the patient. * Abilio Scruggs RN - 04/11/2024 9:31 AM EST See anesthesia record for medication administered during procedure. Abilio Scruggs RN Specimen(s) and location(s) verified with physician post procedure 9:31 AM Abilio Scruggs RN Pre cleaning of scope at the bedside started by graphic arts technician. FNA liver biopsy performed by Dr Kerns using a [employer] 19 gauge acquire needle. One pass made on right liver lobe, specimen placed in formalin per order. Pt tolerated well. * Cyndy Naik RN - 04/11/2024 8:37 AM EST Pt prepped and ready for anesthesia to assess. Call chery in reach. documented in this encounter Plan of Treatment Upcoming Encounters Date Type Department Care Team (Late st Contact Info) Description 09/25/2024 9:50 AM EDT Office Visit [facility] [address] [place] [phone] Xin Floyd DO [address] [place] [address] 03/19/2025 8:15 AM EST Office Visit Dermatology [facility] [address] [facility] [place] [address] Stewart Villarreal MD [address] [facility] [place] [address] 04/10/2025 8:00 AM EST Office Visit Cardiology, [facility] [address] [facility] [place] [address] Ashlie Briggs CRNP [address] [facility] [place] [address] Pending Results Name Type Priority Associated Diagnoses Date /Time SURGICAL PATHOLOGY Pathology Routine Elevated alkaline phosphatase level 04/11/2024 9:32 AM EST Scheduled Orders Name Type Priority Associated Diagnoses Orde r Schedule SURGICAL PATHOLOGY Pathology Routine Elevated alkaline phosphatase level Release Upon Ordering for 1 Occurrences starting 04/11/2024, 1 completed Scheduled Procedures Name Priority Associated Diagnoses Date/Ti me COLONOSCOPY FLEXIBLE PROXIMAL DIAGNOSTIC Recall History of colon polyps ESOPHAGOGASTRODUODENOSCOPY [...] 02/01/2023, Additional history exists Colonoscopy 08/04/2027 08/03/2022, 0 06/2022, 09/15/2019, Additional history exists Colorectal Cancer Screening 08/04/2027 Lipid Panel 03/10/2029 03/10/2024, 120 05/2022, 01/29/2022, Additional history exists Zoster Vaccines [...] Not on filedocumented as of this encounter Procedures Procedure Name Priority Date/Time Associated Diagnosis Comments UPPER ENDOSCOPIC U/S 04/11/2024 9:11 AM EST documented in this encounter Results * UPPER ENDOSCOPIC U/S (04/11/2024 9:11 AM EST) 04/11/2024 9:11 AM EST Narrative Procedure Note Carol Harper MD - 04/11/2024 9:11 AM EST [facility] Patient Name: Jd Sarah Procedure Date: 04/11/2024 9:11 AM Date of : 1960 Admit Type: Outpatient Note Status:Finalized Date of : 1960 Admit Type: Outpatient Age: 64 Room: Advanced Endo Gender: Male Note Status: Finalized Procedure: Upper EUS Indications: Elevated alkaline phosphatase Providers: Cami Kerns MD (Doctor), Abilio Scruggs RN Referring MD: Carol Harper MD (Referring MD), Xin Floyd DO (Referring MD) Medicines: Propofol per Anesthesia Complications: No immediate complications. Procedure: Pre-Anesthesia Assessment: - Prior to the procedure, a History and Physicalwas performed, and patient medications, allergies and sensitivities werereviewed. The patient's tolerance of previous anesthesia was reviewed. - The risks and benefits of the procedure and thesedation options and risks were discussed with the patient. All questions wereanswered and informed consent was obtained. - Patient identification and proposed procedurewere verified prior to the procedure by the physician and the nurse. The procedure wasverified in the procedure room. - Pre-procedure physical examination revealed nocontraindications to sedation. After obtaining informed consent, the endoscope waspassed under direct vision. All instruments were visually inspected immediatelybefore and after removal from the patient to ensure they are fully intact. Throughout the procedure, the patient's bloodpressure, pulse, and oxygen saturations were monitored continuously. The upper EUS wasaccomplished without difficulty. The patient tolerated the procedure well. TheEndosonoscope was introduced through the mouth, and advanced to the second part ofduodenum. Findings & Specimens: ENDOSONOGRAPHIC FINDING: : There was no sign of significant endosonographic abnormality in theampulla. No masses were identified. There was no sign of significant endosonographic abnormality in thecommon bile duct. The maximum diameter of the duct was 4 mm. Evidence of a previous cholecystectomy was identifiedendosonographically. There was no sign of significant endosonographic abnormality in thevisualized portion of the liver. Homogeneous parenchyma was identified. Fine needle biopsy wasperformed. Color Doppler imaging was utilized prior to needle puncture to confirm a lack of significantvascular structures within the needle path. One pass was made with the 19 gauge ultrasound corebiopsy needle using a transduodenal approach. A visible core of tissue was obtained. Verification ofpatient identification for the specimen was done by the physician and nurse using the patient's nameand date. The pathology specimen was placed into Bottle A. There was no sign of significant endosonographic abnormality in theentire pancreas. The pancreatic duct measured up to 2 mm in diameter. Impression: - There was no sign of significant pathology in theampulla. - There was no sign of significant pathology in thecommon bile duct. - Evidence of a cholecystectomy. - There was no evidence of significant pathology inthe visualized portion of the liver. Fine needle biopsy performed. - There was no sign of significant pathology in theentire pancreas. Recommendation: - Discharge patient to home. - Await path results. - Return to referring physician. Cami Kerns MD 04/11/2024 9:35:18 AM This report has been signed electronically. us Carol Harper MD GASTRO UPPER Final Result documented in this encounter Visit Diagnoses Diagnosis Elevated alkaline phosphatase level Other nonspecific abnormal serum enzyme levels documented in this encounter Administered Medications Inactive Administered Medications - up to 3 most recent administrations Medication Order MAR Action Action Date Dose Rate Site Isolyte-S pH 7.4 infusion Intravenous, at 75 mL/hr, for Outpatient patient Plasma-LYTE 148, isolyte-S, and isolyte-S pH 7.4 are considered equivalent - including for MAR barcode scanning., CONTINUOUS, Starting on Wed04/11/24 at 0900, Until Wed04/11/24 at 1505, Pre-Op Continue from Pre-Op 04/11/2024 9:00 AM EST 75 mL/hr New Bag 04/11/2024 8:37 AM EST 75 mL/hr 75 mL/hr documented in this encounter Active and Recently Administered Medications Times are shown in EST. Continuous Medication Order 04/09/2024 04/10/2024 04/11/2024 Isolyte-S pH 7.4 infusion Intravenous, at 75 mL/hr, for Outpatient patient Plasma-LYTE 148, isolyte-S, and isolyte-S pH 7.4 are considered equivalent - including for MAR barcode scanning., CONTINUOUS, Starting on Wed04/11/24 at 0900, Until Wed04/11/24 at 1505, Pre-Op 0837 (New Bag - Prov ider: Cyndy Naik RN)0900 (Continue from Pre-Op - Provider: Tunde Casas CRNA)0937 (Anes Intra-Op Fluid - Provider: Tunde Casas CRNA) documented in this encounter Care Teams Nephrologist Relationship Specialty Start Date End Date Xin Floyd DO [address] [address] PCP - General Family Medicine 03/30/24 documented as of this encounter
--- OUTSIDE RECORDS SUMMARY | 2024-04-22 07:20 | External Medical Summary ---
Author Name Unknown Address Unknown Organization [facility] [address] [place] [address] Laboratory Report Ordering Provider Test Date Status YESICATAEGLORY 04/06/2024 09:12:02 Final Warfarin Therapy
INR: 2 .0-3.0 conventional anticoagulation
INR: 2.5- 3.5 high intensity anticoagulation Observation Date Value Abnormality Reference (Units ) Status PT 04/06/2024 09:12:02 16.2 Above high normal 11 .6-15.2 (seconds) Final INR 04/06/2024 09:12:02 1.3 Above high normal 0. 8-1.2 Final Performing Location [facility] [address] [place] [address]
--- OUTSIDE RECORDS SUMMARY | 2024-04-22 07:20 | External Medical Summary | Summary of Care ---
Author Name Unknown Organization [facility] Address [address] [facility] [place] [address] Phone [phone] Care Team Providers Care Nurses Superintendent Name Role Phone EverettXin Rosario VAUGHN Primary Care Provider [phone] Reason for Visit * Reason Comments Medication Refill Encounter Details Date Type Department Care Team (Late st Contact Info) Description 04/10/2024 [address]iology, [facility] [address] [place] [address] Zac Barnes CRNP [address] [place] [address] Palpitations; Left chest pressure; Diastolic dysfunction Allergies No known active allergiesdocumented as of this encounter (statuses as of 04/11/2024) Medications Lisinopril 10 MG Oral Tablet (Prinivil)Indicat [...] (Norvasc)Indicati ons:Palpitations, Left chest pressure,Diastoli c dysfunction Take 1 Tablet by mouth in the morning. 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 Diastolic dysfunction 10/26/2011 Abnormal electrocardiogram 04/24/2011 Dyslipidemia, goal LDL below 100 HTN, goal below 140/90 documented as of this encounter (statuses as of 04/11/2024) Resolved Problems Problem Noted Date Diagnosed Date [...] as of this encounter (statuses as of 04/11/2024) Immunizations Name Administration Dates Next Due COVID-19 [...] 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 Not on file documented as of this encounter Miscellaneous Notes * Telephone Encounter - NoahCynthia bermudez, [facility] - 04/11/2024 2:06 PM EST Signed Prescriptions: Disp Refills amLODIPine Besylate 5 MG Oral Tablet (Norv*90 Tab*3 Sig: Take 1 Tablet by mouth in the morning.Authorizing Provider: ZAC BARNES User: CYNTHIA BRAVO Electronically signed by Cynthia Bravo [facility] at 04/11/2024 2:06 PM EST * Telephone Encounter - Cynthia Bravo [facility] - 04/11/2024 2:01 PM EST Sent to [place] as requested. Thanks, Cynthia Bravo, PharmD Clinical Pharmacist [facility] [phone] 04/11/2024, 2:02 PM Electronically signed by Cynthia Bravo [facility] at 04/11/2024 2:06 PM EST documented in this encounter Plan of Treatment Upcoming Encounters Date Type Department Care Team (Late st Contact Info) Description 09/25/2024 9:50 AM EDT Office Visit [facility] [address] [place] [phone] Xin Floyd DO [address] [place] [address] 03/19/2025 8:15 AM EST Office Visit Dermatology [facility] [address] [facility] [place] [address] Stewart Villarreal MD [address] [facility] [place], [place] [address] 04/10/2025 8:00 AM EST Office Visit Cardiology, [facility] [address] [place] [id number] Zac Barnes CRNP [address] [facility] [place] [address] Scheduled Procedures Name Priority Associated Diagnoses Date/Ti me ESOPHAGOGASTRODUODENOSCOPY ( EGD), FLEXIBLE, TRANSORAL, ENDOSCOPIC ULTRASOUND Elevated alkaline phosphatase level 04/11/2024 9:11 AM EST COLONOSCOPY FLEXIBLE PROXIMA L DIAGNOSTIC [...] as of this encounter Visit Diagnoses Diagnosis Palpitations Left chest pressure Other chest pain Diastolic dysfunction Heart disease, unspecified documented in this encounter Care Teams Nurses Superintendent Relationship Specialty Start Date End Date Xin Floyd DO [address] [place] [address] PCP - General Family Medicine 03/30/24 documented as of this encounter
--- OUTSIDE RECORDS SUMMARY | 2024-04-22 07:20 | External Medical Summary | Summary of Care ---
Author Name Unknown Organization [facility] Address [address] [facility] [place] [address] Phone [phone] Care Team Providers Care Account Manager B2B Name Role Phone JassXin robledo Rosario VAUGHN Primary Care Provider [phone] Reason for Visit * Reason Comments Outpatient Testing Encounter Details Date Type Department Care Team (Latest Contact Info) Description 04/06/2024 9:10 AM EST Laboratory [facility] [place] [address] [facility] [address] [place] [address] Gastroesophageal reflux disease without esophagitis Allergies No known active allergiesdocumented as of [...] 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 Not on file Not on file documented as of this encounter Plan of Treatment Upcoming Encounters Date Type Department Care Team (Latest Contact Info) Description 04/11/2024 9:15 AM EST Hospital Encounter ENDO [facility], Endoscopy Room [facility] [address] [phone] Cami Kerns MD [address] [place] [address] 04/11/2024 9:15 AM EST - 04/11/2024 10:00 AM EST Surgery ENDO [facility], Endoscopy Room [facility] [address] [place] [phone] Cami Kerns MD [address] [place] [address] ESOPHAGOGASTRODUODENOSCOPY (EGD), FLEXIBLE, TRANSORAL, ENDOSCOPIC ULTRASOUND 09/25/2024 9:50 AM EDT Office Visit [facility] [phone] Xin Floyd DO 226 [facility] [place] [address] 03/19/2025 8:15 AM EST Office Visit Dermatology [facility] [place] [address] Stewart Villarreal MD [address] [facility] [place] [address] 04/10/2025 8:00 AM EST Office Visit Cardiology, [facility] [address] [facility] [place] [address] Ashlie Briggs CRNP [address] [place] [address] Scheduled Procedures Name Priority Associated Diagnoses Date/Ti [...] Td or Tdap) 03/15/2022 03/15/2012 COVID-19 Vaccine ( season) 2023 07/18/2020, 06/20/2020 Influenza Vaccine (FLU shot) (#1) 2023 GFR 03/10/2025 03/10/2024, 10/30, 02/01/2023, Additional history exists Joaquin's Esophagus Surveilance 08/03/2025 08/03/2022, 08/03/2022, 09/15/2019, Additional history exists Albumin/Creatinine Ratio 05/10/2026 024, 01/29/2022, 06/02/2010 Diabetes Screening 03/10/2027 03/10/2024, 0 11/17/2023, 02/01/2023, Additional history exists Colonoscopy 08/04/2027 08/03/2022, 060 06/2022, 09/15/2019, Additional history exists Colorectal Cancer [...] Procedure Name Priority Date/Time Associated Diagnosis Comments PT INR Routine 04/06/2024 9:12 AM EST Gastroesophageal reflux disease without esophagitis documented in this encounter Results * (ABNORMAL) PT INR (04/06/2024 9:12 AM EST) Prothrombin Time 16.2(H) 11.6 - 15.2 seconds 04/06/2024 10:07 AM EST LAB[facility]ORY [place] [id number] INR 1.3(H) 0.8 - 1.2 04/06/2024 10:07 AM EST LABORATORY [facility] [place] 57-10 Blood Venous blood specimen / Unknown Venipuncture / Unknown 04/06/2024 9:12 AM EST 04/06/2024 9:12 AM EST Narrative [facility] [place] 57-10 - 04/06/2024 10:07 AM EST Warfarin Therapy INR: 2.0-3.0 conventional anticoagulation INR: 2.5-3.5 high intensity anticoagulation us Cami Kerns MD LAB BLOOD ORDERABLES Final Result LABORATORY [place] 57-10 [address] [place] [address] documented in this encounter Visit Diagnoses Diagnosis Gastroesophageal reflux disease without esophagitis Esophageal reflux Elevated alkaline phosphatase level Other nonspecific abnormal serum enzyme levels documented in this encounter Care Teams Account Manager B2B Relationship Specialty Start Date End Date Xin Floyd DO [address] [place] [address] PCP - General Family Medicine 03/30/24 documented as of this encounter
--- OUTSIDE RECORDS SUMMARY | 2024-04-22 07:21 | External Medical Summary | Summary of Care ---
Author Name Unknown Organization [facility] Address [address] [facility] [place] [address] Phone [phone] Care Team Providers Care Director Of Medical Services Name Role Phone Xin Floyd DO Primary Care Provider [phone] Reason for Visit * Reason Onset Date Comments Medication Refill 04/03/2024 Encounter Details Date Type Department Care Team (Late st Contact Info) Description 04/03/2024 Refill Cardiology, [facility] [address] [place] [address] Yonathan Floyd DO [address] [place] [address] Palpitations; Left chest pressure; Diastolic dysfunction Allergies No known active allergiesdocumented as of this encounter (statuses as of 04/04/2024) Medications Lisinopril 10 MG Oral Tablet (Prinivil)Indicat [...] EVERY MORNING 90 Tablet 1 4 Active Pantoprazole Sodium 20 MG Oral Tablet Delayed Release (Protonix)Indicat ions:Gastroesopha geal reflux disease without esophagitis TAKE 1 TABLET BY MOUTH TWICE DAILY every morning and every evening 180 Tablet 2 4 Active Atorvastatin Calcium 10 MG Oral Tablet (Lipitor)Indicati ons:Dyslipidemia, goal LDL below 100 Take 1 Tablet by mouth in the morning. 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 Diastolic dysfunction 10/26/2011 Abnormal electrocardiogram 04/24/2011 Dyslipidemia, goal LDL below 100 HTN, goal below 140/90 documented as of this encounter (statuses as of 04/04/2024) Resolved Problems Problem Noted Date Diagnosed Date [...] as of this encounter (statuses as of 04/04/2024) Immunizations Name Administration Dates Next Due COVID-19 [...] ages 0-17 years) Not on file 08/03/2023 Sex and Gender Information Value Date Recorded Sex Assigned at Male 06/16/2018 9:31 AM EDT Legal Sex Male 6:03 AM EST Gender Identity Male 06/16/2018 9:31 AM EDT Sexual Orientation Straight 06/16/2018 9: 31 AM EDT 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 In the morning..Refused By: PEGGY ALEXANDERReason for Refusal: Too soon documented in this encounter Plan of Treatment Upcoming Encounters Date Type Department Care Team (Latest Contact Info) Description 04/11/2024 9:15 AM EST Hospital Encounter ENDO [facility], Endoscopy Room [facility] [place] [address] Cami Kerns MD [address] [place] [address] 04/11/2024 9:15 AM EST - 04/11/2024 10:00 AM EST Surgery ENDO [facility], Endoscopy Room [facility] [address] [place] [phone] Cami Kerns MD [address] [place] [address] ESOPHAGOGASTRODUODENOSCOPY (EGD), FLEXIBLE, TRANSORAL, ENDOSCOPIC ULTRASOUND 06/13/2024 8:30 AM EDT Office Visit Cardiology, [facility] [address] [place] [address] Ashlie Briggs CRNP [address] [place] [address] 09/25/2024 9:50 AM EDT Office Visit [facility] 226 [place] [phone] Xin Floyd DO 226 [facility], [place] [address] 03/19/2025 8:15 AM EST Office Visit Dermatology [facility] 200 [facility] [place] [address] Stewart Villarreal MD 200 [facility] [place] [address] Scheduled Procedures Name Priority Associated Diagnoses Date/Ti [...] Cancer Screening 08/04/2027 Lipid Panel 03/10/2029 03/10/2024, 1205/2022, 01/29/2022, Additional history exists Zoster Vaccines Completed [...] chest pain Diastolic dysfunction Heart disease, unspecified Elevated alkaline phosphatase level Other nonspecific abnormal serum enzyme levels documented in this encounter Care Teams Director Of Medical Services Relationship Specialty Start Date End Date Xin Floyd DO [address] [place] [address] PCP - General Family Medicine 03/30/24 documented as of this encounter
--- OUTSIDE RECORDS SUMMARY | 2024-04-22 07:21 | External Medical Summary | Summary of Care ---
Author Name Unknown Organization [facility] Address [address] [facility] [place] [address] Phone [phone] Care Team Providers Care Enforcement Officer Name Role Phone Ldua Floyd DO Primary Care Provider [phone] Reason for Visit * Reason Onset Date Comments Medication Refill 04/03/2024 Encounter Details Date Type Department Care Team (Late st Contact Info) Description 04/03/[address] [facility] [address] [place] [phone] Luda Floyd DO [address] [place] [address] Gastroesophageal reflux disease without esophagitis Allergies No [...] every evening 180 Tablet 1 5 Active Pantoprazole Sodium 20 MG Oral Tablet Delayed Release (Protonix)Indicat ions:Gastroesopha geal reflux disease without esophagitis TAKE 1 TABLET BY MOUTH TWICE DAILY every morning and every evening 180 Tablet 2 4 04/03/19 25 Discontinu ed(Refill) documented as of this [...] 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 Thanks, David Manley Pharm.D. Clinical Pharmacist [facility] [phone] 04/04/2024, 12:26 PM documented in this encounter Plan of Treatment Upcoming Encounters Date Type Department Care Team (Latest Contact Info) Description 04/11/2024 9:15 AM EST Hospital Encounter ENDO [facility], Endoscopy Room [facility] [address] [place] [phone] Cami Kerns MD [address] [place] [address] 04/11/2024 9:15 AM EST - 04/11/2024 10:00 AM EST Surgery ENDO [facility], Endoscopy Room [facility] [address] [place] [phone] Cami Kerns MD [address] [place] [address] ESOPHAGOGASTRODUODENOSCOPY (EGD), FLEXIBLE, TRANSORAL, ENDOSCOPIC ULTRASOUND 06/13/2024 8:30 AM EDT Office Visit Cardiology, [facility] [address] [place] [address] Ashlie Briggs CRNP [address] [place] [address] 09/25/2024 9:50 AM EDT [facility] [address] [place] [phone] Luda Floyd DO [address] [place] [address] 03/19/2025 8:15 AM EST Office Visit D[facility]atology [facility] [place] [address] [facility] [place] [address] Stewart Villarreal MD 200 [facility] [place] [address] Scheduled Procedures Name Priority Associated Diagnoses Date/Ti [...] 02/01/2023, Additional history exists Colonoscopy 08/04/2027 08/03/2022, 06/0 06/2022, 09/15/2019, Additional history exists Colorectal Cancer [...] as of this encounter Visit Diagnoses Diagnosis Gastroesophageal reflux disease without esophagitis Esophageal reflux Elevated alkaline phosphatase level Other nonspecific abnormal serum enzyme levels documented in this encounter Care Teams Enforcement Officer Relationship Specialty Start Date End Date Luda Floyd DO [address] [place] [address] PCP - General Family Medicine 03/30/24 documented as of this encounter
--- OUTSIDE RECORDS SUMMARY | 2024-04-22 07:21 | External Medical Summary | Summary of Care ---
Author Name Unknown Organization [facility] Address [address] [facility] [place] [address] Phone [phone] Care Team Providers Care Gas Station Clerk Name Role Phone Xin Floyd DO Primary Care Provider [phone] Reason for Visit * Reason Comments Physical-Exam Pt states that he is here for a general check up Encounter Details Date Type Department Care Team (Late st Contact Info) Description 03/10/2024 9:30 AM EST Office Visit [facility] [place] [address] [place] [phone] Xin Floyd DO [address] [place] [address] HTN, goal below 140/90*; Paroxysmal atrial fibrillation (HCC); Dyslipidemia, goal LDL below 100; Screening PSA (prostate specific antigen); Gastroesophageal reflux disease without esophagitis; Elevated alkaline phosphatase in Allergies No known active allergiesdocumented as of this encounter (statuses as of 03/10/2024) Medications Famotidine 20 MG Oral Tablet (Pepcid)Indicatio ns:Gastroesophage al reflux disease without esophagitis TAKE ONE TABLET BY MOUTH NIGHTLY AT BEDTIME 90 Tablet 3 4 Active Lisinopril 10 MG Oral Tablet (Prinivil)Indicat ions:Essential [...] the morning. 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 Diastolic dysfunction 10/26/2011 Abnormal electrocardiogram 04/24/2011 Dyslipidemia, goal LDL below 100 HTN, goal below 140/90 documented as of this encounter (statuses as of 03/10/2024) Resolved Problems Problem Noted Date Diagnosed Date [...] as of this encounter (statuses as of 03/10/2024) Immunizations Name Administration Dates Next Due COVID-19 mRNA, LNP-s, No Pre serve, 2-Dose Series (Moderna) 07/18/2020,06/20/2020 TDAP (age 10 and older)(Boostrix) 03/15/2012 Zoster Vaccine Recombinant (Shingrix) 01/29/2022 ,09/07/2019 documented as of this encounter Social History Tobacco Use Types Packs/Day Years Used Date Smoking Tobacco: Never Passive Smoke Exposure: Past Smokeless Tobacco: Never Tobacco Cessation:Counseling Given: Not Answered Alcohol Use Standard Drinks/Week Comments Yes 0 [...] 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 Not on file documented as of this encounter Last Filed Vital Signs Vital Sign Reading Time Taken Comments Blood Pressure 128/84 03/10/2024 9:27 AM EST Pulse 67 03/10/2024 9:27 AM EST Temperature 36.3 C (97.3 F) 03/10/2024 9:27 AM ES T Respiratory Rate 16 03/10/2024 9:27 AM EST Oxygen Saturation 98% 03/10/2024 9:27 AM EST Inhaled Oxygen Concentration - - Weight 82.4 kg (181 lb 11.2 oz) 03/10/2024 9:27 AM EST Height 180.3 cm (5' 11") 03/10/2024 9:27 AM EST Body Mass Index 25.34 03/10/2024 9:27 AM EST documented in this encounter Progress Notes * Xin Floyd DO - 03/10/2024 9:46 AM EST Subjective: Jd Sarah is a 64 year old male. Chief Complaint Patient presents with Physical-Exam Pt states that he is here for a general check up HPI: 64 year old male here today for a regular follow-up. He has hx of Atrial fibrillation, Dyslipidemia, GERD, HTN, Barretts, BPH, and on meds as listed. Since his last OV with me he did have his gallbladder removed. Doing well. At times gets diarrhea, after eating certain foods, like pop tarts. Jewell urine color at times. Increased water. Family stressors. PHM: Patient Active Problem List Diagnosis Dyslipidemia, goal LDL below 100 Abnormal electrocardiogram Diastolic dysfunction BPH with obstruction/lower urinary tract symptoms HTN, goal below 140/90 GERD (gastroesophageal reflux disease) 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 Screening PSA (prostate specific antigen) Paroxysmal atrial fibrillation (HCC) Current Outpatient Medications Medication Sig Dispense Refill Famotidine 20 MG Oral Tablet (Pepcid) TAKE ONE TABLET BY MOUTH NIGHTLY AT BEDTIME 90 Tablet 3 Lisinopril 10 MG Oral Tablet (Prinivil) Take [...] BY MOUTH EVERY MORNING 90 Tablet 1 Pantoprazole Sodium 20 MG Oral Tablet Delayed Release (Protonix) TAKE 1 TABLET BY MOUTH TWICE DAILYevery morning and every evening 180 Tablet 2 Atorvastatin Calcium 10 MG Oral Tablet (Lipitor) Take 1 Tablet by mouth in the morning. 90 Tablet 1 No current facility-administered medications for this visit. Review of patient's allergies indicates: No Known Allergies Objective: BP 128/84 | Pulse 67 | Temp 97.3 F (36.3 C) (Tympanic) | Resp 16 | Ht 5' 11" (1.803 m) | Wt 181lb 11.2 oz (82.4 kg) | SpO2 98% | BMI 25.34 kg/m | BSA 2.03 m Physical Exam: General: alert, healthy, and no distress Heart: regular rate & rhythm, no murmur, and no gallops Lungs: chest symmetric with normal AP diameter, no chest deformities noted, no chest wall tenderness, lungs clear to auscultation Abdomen: abdomen soft, non-tender, normal bowel sounds, and no masses or organomegaly Extremities: no edema ASSESSMENT/PLAN: HTN, goal below 140/90 (Primary) - BASIC METABOLIC PANEL; Future; Expected date: 03/10/2024 Paroxysmal atrial fibrillation (HCC) Dyslipidemia, goal LDL below 100 - LIPID PANEL WITH DIRECT LDL IF TG IS HIGH; Future; Expected date: 03/10/2024 Screening PSA (prostate specific antigen) - PSA; Future; Expected date: 03/10/2024 Gastroesophageal reflux disease without esophagitis Elevated alkaline phosphatase in - HEPATIC FUNCTION PANEL; Future; Expected date: 03/10/2024 Follow Up: Return in about 6 months (around 09/07/2024) for Labs Today. | For: Labs Today Xin Floyd DO documented in this encounter Nursing Notes * Lu Escobar LPN - 03/10/2024 9:27 AM EST Jd Sarah is a 64 year old male who presents today for Chief Complaint Patient presents with Physical-Exam Pt states that he is here for a general check up documented in this encounter Plan of Treatment Upcoming Encounters Date Type Department Care Team (Late st Contact Info) Description 09/25/2024 9:50 AM EDT [facility] [place] [address] [place] [phone] Xin Floyd DO [address] [place] [address] 03/19/2025 8:15 AM EST Office [facility] [address] Stewart Villarreal MD 200 [place] [address] Pending Results Name Type Priority Associated Diagnoses Date /Time LIPID PANEL WITH DIRECT LDL IF TG IS HIGH Lab Routine Dyslipidemia, goal LDL below 100 03/10/2024 10:46 AM EST BASIC METABOLIC PANEL Lab Routine HTN, goal below 140/90 03/10/2024 10:46 AM EST HEPATIC FUNCTION PANEL Lab Routine Elevated alkaline phosphatase in 03/10/2024 10:46 AM EST PSA Lab Routine Screening PSA (prostate specific antigen) 03/10/2024 10:46 AM EST Scheduled Orders Name Type Priority Associated Diagnoses Orde r Schedule LIPID PANEL WITH DIRECT LDL IF TG IS HIGH Lab Routine Dyslipidemia, goal LDL below 100 Expected: 03/10/2024, Expires: 03/10/2025 BASIC METABOLIC PANEL Lab Routine HTN, goal below 140/90 Expected: 03/10/2024 (Approximate), Expires: 03/10/2025 HEPATIC FUNCTION PANEL Lab Routine Elevated alkaline phosphatase in Expected: 03/10/2024 (Approximate), Expires: 03/10/2025 PSA Lab Routine Screening PSA (prostate specific antigen) Expected: 03/10/2024 (Approximate), Expires: 03/10/2025 Scheduled Procedures Name Priority Associated Diagnoses Date/Ti [...] Influenza Vaccine (FLU shot) (#1) 2023 GFR 11/16/2024 11/17/2023, 12/0 05/2022, 07/30/2022, Additional history exists Joaquin's Esophagus Surveilance 08/03/2025 08/03/2022, 08/03/2022, 09/15/2019, Additional history exists Albumin/Creatinine Ratio 05/10/2026 024, 01/29/2022, 06/02/2010 Diabetes Screening 11/16/2026 11/17/2023, 1 04/04/2022, 07/30/2022, Additional history exists Colonoscopy 08/04/2027 08/03/2022, 06/2022, 09/15/2019, Additional history exists Colorectal Cancer Screening 08/04/2027 Lipid Panel 02/02/2028 02/01/2023, 03/2021, 07/30/2021, Additional history exists Zoster Vaccines Completed 01/29/2022, [...] as of this encounter Visit Diagnoses Diagnosis HTN, goal below 140/90- Primary Unspecified essential hypertension Paroxysmal atrial fibrillation (HCC) Atrial fibrillation Dyslipidemia, goal LDL below 100 Other and unspecified hyperlipidemia Screening PSA (prostate specific antigen) Special screening for malignant neoplasm of prostate Gastroesophageal reflux disease without esophagitis Esophageal reflux Elevated alkaline phosphatase in Other specified conditions originating in the period documented in this encounter Care Teams Gas Station Clerk Relationship Specialty Start Date End Date Xin Floyd DO PCP - General Family Medicine 02/03/18 documented as of this encounter
--- OUTSIDE RECORDS SUMMARY | 2024-04-22 07:21 | External Medical Summary | Summary of Care ---
Author Name Unknown Organization [facility] Address [address] [facility] [place] [address] Phone [phone] Care Team Providers Care Resource Development Manager Name Role Phone JassXin robledo Primary Care Provider [phone] Reason for Visit * Reason Onset Date Comments Pre-Op Testing 04/05/2024 labs Encounter Details Date Type Department Care Team (Late st Contact Info) Description 04/05/2024 Telephone Pre Surgery Center, [facility] [address] [place] [address] Cami Kerns MD [address] [place] [address] Pre-Op Testing (labs) Allergies No known active allergiesdocumented as of [...] every evening 180 Tablet 1 5 Active documented as of [...] No Pre serve, 2-Dose Series (Moderna) 07/18/2020,06/20/2020 PPD 12/02/1998 TDAP (age 10 and older)(Boostrix) 03/15/2012 Zoster [...] 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 I sent pt a MyG. * Telephone Encounter - Cami Kerns MD - 04/05/2024 4:40 PM EST Needs coags. I ordered it,. * Telephone Encounter - Justyna Ferreira, RN - 04/05/2024 9:12 AM EST Pt sched for liver BX 04/11/24. His last CBC was 10/2023. Do you want pre-op labs? If so, could you please order? And GI nurses, please let pt know when they have been placed. Thank you. documented in this encounter Plan of Treatment Upcoming Encounters Date Type Department Care Team (Latest Contact Info) Description 04/06/2024 8:30 AM EST Office Visit Cardiology, [facility] [address] [place] [address] Ashlie Briggs CRNP [address] [place] [address] 04/11/2024 9:15 AM EST Hospital Encounter ENDO [facility], Endoscopy Room [facility] [address] [place] [phone] Cami Kerns MD [address] [place] [address] 04/11/2024 9:15 AM EST - 04/11/2024 10:00 AM EST Surgery ENDO [facility], Endoscopy Room [facility] [address] [place] [phone] Cami Kerns MD [address] [place] [address] ESOPHAGOGASTRODUODENOSCOPY (EGD), FLEXIBLE, TRANSORAL, ENDOSCOPIC ULTRASOUND 09/25/2024 9:50 AM EDT [facility] [address] [place] [phone] Xin Floyd, [address] [place] [address] 03/19/2025 8:15 AM EST Office Visit Dermatology Sam Jalloh [place] 200 [facility] [place] [address] Stewart Villarreal MD 200 [facility] [place] [address] Scheduled Orders Name Type Priority Associated Diagnoses Orde r Schedule PT INR Lab Routine Gastroesophageal reflux disease without esophagitis Expected: 04/05/2024, Expires: 04/05/2025 Scheduled Procedures Name Priority Associated Diagnoses Date/Ti [...] Visit Diagnoses Diagnosis Gastroesophageal reflux disease without esophagitis- Primary Esophageal reflux Palpitations- Primary Paroxysmal atrial fibrillation (HCC) Atrial fibrillation HTN, goal below 140/90 Unspecified essential hypertension Dyslipidemia, goal LDL below 100 Other and unspecified hyperlipidemia Elevated alkaline phosphatase level Other nonspecific abnormal serum enzyme levels documented in this encounter Care Teams Resource Development Manager Relationship Specialty Start Date End Date Xin Floyd DO [address] [place] [address] PCP - General Family Medicine 03/30/24 documented as of this encounter
--- OUTSIDE RECORDS SUMMARY | 2024-04-22 07:21 | External Medical Summary | Summary of Care ---
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 on file Not [...] 04/06/2024 8:30 AM EST Office Visit Cardiology, [facility] [address] [place] [address] Ashlie Briggs CRNP [address] [place] [address] 04/11/2024 9:15 AM EST Hospital Encounter ENDO [facility], Endoscopy Room [facility] [address] [place] [phone] Cami Kerns MD [address] [place] [address] 04/11/2024 9:15 AM EST - 04/11/2024 10:00 AM EST Surgery ENDO [facility], Endoscopy Room [facility] [address] [place] [phone] Cami Kerns MD [address] [place] [address] ESOPHAGOGASTRODUODENOSCOPY (EGD), FLEXIBLE, TRANSORAL, ENDOSCOPIC ULTRASOUND 09/25/2024 9:50 AM EDT [facility] [address] [place] [phone] Xin Floyd, [address] [place] [address] 03/19/2025 8:15 AM EST Office Visit Dermatology Sam Jalloh [place] 200 [facility] [place] [address] Stewart Villarreal MD 200 [facility] [place] [address] Scheduled Orders Name Type Priority Associated Diagnoses [...] levels documented in this encounter Care Teams Media Assistant Relationship Specialty Start Date End Date Xin Floyd DO [address] [place] [address] PCP - General Family Medicine 03/30/24 documented as of this encounter
--- OUTSIDE RECORDS SUMMARY | 2024-04-22 07:21 | External Medical Summary | Summary of Care ---
Author Name Unknown Organization [facility] Address [address] [facility] [place] [address] Phone [phone] Care Team Providers Care Bullet Swaging Machine Operator Name Role Phone DilipiXn carrasquillo Primary Care Provider [phone] Encounter Details Date Type Department Care Team (Late st Contact Info) Description 03/21/2024 Population Health External Data Unspecified Department Allergies No known active allergiesdocumented as of this encounter (statuses as of 03/21/2024) Medications Famotidine 20 MG Oral Tablet (Pepcid)Indicatio [...] as of this encounter (statuses as of 03/21/2024) Active Problems Problem Noted Date Diagnosed Date Paroxysmal atrial fibrillation 07/30/2022 Screening PSA (prostate specific antigen) 2016 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 GERD (gastroesophageal reflux disease) 4 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 Diastolic dysfunction 10/26/2011 Abnormal electrocardiogram 04/24/2011 Dyslipidemia, goal LDL below 100 HTN, goal below 140/90 documented as of this encounter (statuses as of 03/21/2024) Resolved Problems Problem Noted Date Diagnosed Date [...] as of this encounter (statuses as of 03/21/2024) Immunizations Name Administration Dates Next Due COVID-19 [...] 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 [address] [place] [address] Ashlie Briggs CRNP [address] [place] [address] 09/25/2024 9:50 AM EDT [facility] [address] Gandhi [place] [phone] Xin Floyd, [address] [place] [address] 03/19/2025 8:15 AM EST [facility] [address] [facility] [place] [address] Stewart Villarreal MD [address] [facility] [place] [address] Scheduled Procedures Name Priority Associated Diagnoses Date/Ti [...] 08/03/2022, 09/15/2019, Additional history exists Albumin/Creatinine Ratio 05/10/20262 024, 01/29/2022, 06/02/2010 Diabetes Screening 03/10/2027 03/10/2024, [...] Not on filedocumented as of this encounter Care Teams Bullet Swaging Machine Operator Relationship Specialty Start Date End Date Xin Floyd DO PCP - General Family Medicine 02/03/18 documented as of this encounter
--- OUTSIDE RECORDS SUMMARY | 2024-04-22 07:22 | External Medical Summary ---
Author Name Unknown Address Unknown Organization K01:[facility] [address] [place] [address] Laboratory Report Ordering Provider Test Date Status HARDEEP LARES 03/10/2024 10:46:48 Final Observation Date Value Abnormality Reference (Units ) Status PSA 03/10/2024 10:46:48 1.46 <4.10 (ng/ mL) Final Performing Location [facility] [address] [place] [address]
--- OUTSIDE RECORDS SUMMARY | 2024-04-22 07:22 | External Medical Summary | Summary of Care ---
Author Name Unknown Organization [facility] Address [address] [facility] [place] [address] Phone [phone] Care Team Providers Care Tours Hostess Name Role Phone Xin Floyd DO Primary Care Provider [phone] Reason for Visit * Reason Comments eRx-Medication Refill Encounter Details Date Type Department Care Team (Late st Contact Info) Description 12/11/2023 Refill Cardiology, [facility] [address] [place] [address] Yonathan Floyd DO [address] [place] [address] Paroxysmal atrial fibrillation (HCC) Allergies No known active allergiesdocumented as of this encounter (statuses as of 12/14/2023) Medications Medication Sig Dispensed Refills Start Date End Date Status amLODIPine Besylate 5 MG Oral Tablet (Norvasc)Indicatio ns:Palpitations,Le ft chest pressure,Diastolic dysfunction TAKE ONE TABLET BY MOUTH EVERY MORNING 90 Tablet 3 01/07/2023 Active Famotidine 20 MG Oral Tablet (Pepcid)Indication s:Gastroesophageal reflux disease without esophagitis TAKE ONE TABLET BY MOUTH NIGHTLY AT BEDTIME 90 Tablet 3 03/20/2023 Active Atorvastatin Calcium 10 MG Oral Tablet (Lipitor)Indicatio ns:Dyslipidemia, goal LDL below 100 TAKE ONE TABLET BY MOUTH IN THE MORNING 90 Tablet 2 05/01/2023 Active Lisinopril 10 MG Oral Tablet (Prinivil)Indicati ons:Essential hypertension with goal blood pressure less than 140/90 Take 1 Tablet by mouth in the morning. 90 Tablet 3 09/08/2023 Active Pantoprazole Sodium 20 MG Oral Tablet Delayed Release (Protonix)Indicati ons:Gastroesophage al reflux disease without esophagitis TAKE 1 TABLET BY MOUTH EVERY MORNING AND EVENING 60 Tablet 3 09/08/2023 Active Metoprolol Succinate ER 50 MG Oral Tablet Extended Release 24 Hour (toPROL XL)Indications:HTN , goal below 140/90 TAKE 1 TABLET BY MOUTH EVERY MORNING 90 Tablet 3 11/29/2023 Active Eliquis 5 MG Oral Tablet (Apixaban)Indicati ons:Paroxysmal atrial fibrillation (HCC) TAKE 1 TABLET BY MOUTH TWICE DAILY EVERY MORNING AND BEFORE BEDTIME 180 Tablet 3 12/14/2023 Active Eliquis 5 MG Oral Tablet (Apixaban)Indicati ons:Paroxysmal atrial fibrillation (HCC) TAKE ONE TABLET BY MOUTH IN THE MORNING AND ONE BEFORE BEDTIME 180 Tablet 3 12/21/2022 4 Discontinued documented as of this encounter (statuses as of 12/14/2023) Active Problems Problem Noted Date Diagnosed Date Paroxysmal atrial fibrillation 07/30/2022 Screening PSA (prostate specific antigen) 2016 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52 12/07/[address] of liver 12/07/2014 017 Need for shingles vaccine 12/07/2014 Abnormal serum lipase level 10/03/2014 02/04/2017 Abnormal results of liver function studies 10/03/2014 02/04/2017 Cervicalgia 05/31/2014 02/04/2017 Screen for colon cancer 05/31/201408/29 Special screening for malign ant neoplasm of prostate 05/31/2014 09/08/2014 INFORMATION 05/31/2014 02/04/2017 Overview: 10-year-old cardiovascular risk is 9% Spasm of muscle 12/20/2013 12/07/2014 Chest discomfort 06/26/2013 12/07/2014 Overweight (BMI 25.0-29.9) 05/26/2013 1 04/07/2016 Overview: bmi= 26.78 05/26/13 Rectal hemorrhage 11/25/2012 12/07/2014 Internal hemorrhoids with other complication 3 12/07/2014 Hand dermatitis 05/05/2012 02/04/2017 Refused influenza vaccine 12/09/2011 Overweight (BMI 25.0-29.9) 10/26/2011 1 04/07/2016 Overview: bmi= 26.71 10/26/11 Routine medical exam 10/26/2011 015 Special screening for malign ant neoplasm of prostate 10/26/2011 09/08/2014 Screen for colon cancer 10/26/201108/29 Gastroesophageal reflux 10/26/201104/2013 Special screening for malign ant neoplasm of prostate 04/24/2011 05/26/2013 DIASTOLIC DYSFUNCTION 04/24/20112011 OVERWEIGHT, BMI= 26.08 10/22/10 10/22/2010 02/04/2017 Esophageal reflux 07/22/2010 10/26/2011 Chest pain 06/30/2010 12/07/2014 Headache 06/30/2010 09/08/2014 Overview: ICD-10 update of inactive term DIASTOLIC DYSFUNCTION 06/02/20102010 OVERWEIGHT, BMI= 26.92 05/26/10 05/26/2010 12/07/2014 Abnormal electrocardiogram 05/26/2010 0 04/24/2011 Elevated prostate specific antigen (PSA) 05/26/2010 11/30/2013 Special screening for malign ant neoplasms, colon 05/26/2010 09/08/2014 CLASSICAL MIGRAINE WITHOU ME NTION OF INTRACTABLE MIGRAINE 01/30/1998 12/07/2014 Esophagitis 10/22/2010 Overview: ICD-10 update of inactive term HTN, goal below 140/90 11/25 Cluster headaches 12/07/2014 Kidney disease, chronic, sta ge II (GFR 60-89 ml/min) 12/09/2011 documented as of this encounter (statuses as of 12/14/2023) Immunizations Name Administration Dates Next Due COVID-19 [...] Assigned at Male 06/16/2018 9:31 AM EDT Gender Identity Male 06/16/2018 9:31 AM EDT Sexual Orientation Straight 06/16/2018 9: 31 AM EDT Job Start Date Occupation Industry Not on file Not on file Not on file documented as of this encounter Miscellaneous Notes * Telephone Encounter - Jay Ruiz RPh - 12/14/2023 11:12 AM EDTSigned Prescriptions: Disp Refills Eliquis 5 MG Oral Tablet (Apixaban) 180 Ta*3 Sig: TAKE 1 TABLET BY MOUTH TWICE DAILY EVERY MORNING AND BEFORE BEDTIME Authorizing Provider: ZAC BARNES Ordering User: JAY RUIZ * Telephone Encounter - Interface, E-Rx Ss Inbound - 12/13/2023 12:43 PM EDT Pending Prescriptions: Disp Refills Eliquis 5 MG Oral Tablet [Pharmacy Med Nam*180 Ta*0 Sig: TAKE 1TABLET BY MOUTH TWICE DAILY EVERY MORNING AND BEFORE BEDTIME documented in this encounter Plan of Treatment Upcoming Encounters Date Type Department Care Team (Late st Contact Info) Description 12/15/2023 9:30 AM EDT Scheduled Telephone General Surgery, [facility] [address] [place] [address] Nurse Ric [facility] [place] [address] 12/29/2023 8:30 AM EDT Office Visit General Surgery, [facility] [place] [address] Jose Chambers [facility] [place] [address] 03/10/2024 1:45 PM EST Office Visit Dermatology [facility] [address] [place] [address] Stewart Villarreal MD [address] [place] [address] Scheduled Procedures Name Priority Associated Diagnoses Date/Ti me COLONOSCOPY FLEXIBLE PROXIMAL DIAGNOSTIC Recall History of colon polyps ESOPHAGOGASTRODUODENOSCOPY ( EGD), FLEXIBLE, TRANSORAL, DIAGNOSTIC Recall Joaquin's esophagus Health Maintenance Due Date Last Done Comments Cologuard 02/25/2004 Sigmoidoscopy 02/25/2004 Fecal Occult Blood Test 06/08/2014 06/08/2013, 05/12 Depression Screening 03/08/2019 03/08/2018, 06/01/19 15 DTap/Tdap Vaccines (2 - Td or Tdap) 03/15/2022 03/15/2012 COVID-19 Vaccine ( - season) 2023 07/18/2020, 06/20/2020 Influenza Vaccine (FLU shot) (#1) 2023 GFR 11/16/2024 11/17/2023, 05/2022, 07/30/2022, Additional history exists Joaquin's Esophagus [...] on patient's age to complete this topic Pneumococcal Vaccine: Pediatrics (0 to 5 Years) and At-Risk Patients (6 to 64 Years) Aged Out No longer eligible based on patient's age to complete this topic documented as of this encounter Medical Devices Not on filedocumented as of this encounter Visit Diagnoses Diagnosis Paroxysmal atrial fibrillation (HCC) Atrial fibrillation documented in this encounter Care Teams Tours Hostess Relationship Specialty Start Date End Date Xin Floyd DO [address] [place] [address] PCP - General Family Medicine 02/03/18 documented as of this encounter
--- OUTSIDE RECORDS SUMMARY | 2024-04-22 07:22 | External Medical Summary | Summary of Care ---
Author Name Unknown Organization [facility] Address [address] [facility] [place] [address] Phone [phone] Care Team Providers Care Clutch Operator Name Role Phone Luda Meier DO Primary Care Provider [phone] Reason for Visit * Reason Onset Date Comments Medication Refill 01/31/2024 Encounter Details Date Type Department Care Team (Late st Contact Info) Description 01/31/2024 Refill [facility] [address] [place] [phone] Luda Meier DO [address] [place] [address] Dyslipidemia, goal LDL below 100 Allergies No known active allergiesdocumented as of this encounter (statuses as of 02/01/2024) Medications Famotidine 20 MG Oral Tablet (Pepcid)Indicatio [...] the morning. 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 Diastolic dysfunction 10/26/2011 Abnormal electrocardiogram 04/24/2011 Dyslipidemia, goal LDL below 100 HTN, goal below 140/90 documented as of this encounter (statuses as of 02/01/2024) Resolved Problems Problem Noted Date Diagnosed Date [...] as of this encounter (statuses as of 02/01/2024) Immunizations Name Administration Dates Next Due COVID-19 [...] 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 on file documented as of this encounter Miscellaneous Notes * Telephone Encounter - Sher Cruz RPh - 02/01/2024 10:35 AM EST Signed Prescriptions: Disp Refills Atorvastatin Calcium 10 MG Oral Tablet (Li*90 Tab*1 Sig: Take 1 Tablet by mouth in the morning.Authorizing Provider: LUDA MEIER User: SHER CRUZ documented in this encounter Plan of Treatment Upcoming Encounters Date Type Department Care Team (Late st Contact Info) Description 03/10/2024 1:45 PM EST Office Visit Dermatology [employer] [address] [facility] [place] [address] Stewart Villarreal MD 200 [facility] [place] [address] Scheduled Procedures Name Priority Associated Diagnoses Date/Ti [...] LDL below 100 Other and unspecified hyperlipidemia documented in this encounter Care Teams Clutch Operator Relationship Specialty Start Date End Date Luda Meier DO [address] [place] [address] PCP - General Family Medicine 02/03/18 documented as of this encounter
--- OUTSIDE RECORDS SUMMARY | 2024-04-22 07:22 | External Medical Summary | Summary of Care ---
Author Name Unknown Organization [facility] Address [address] [facility] [address] Phone [phone] Care Team Providers Care Buckram Sewer Name Role Phone Luda Meier DO Primary Care Provider [phone] Reason for Visit * Reason Comments eRx-Medication Refill Encounter Details Date Type Department Care Team (Late st Contact Info) Description 01/13/2024 Refill [facility] [address] [place] [address] Luda Meier DO [address] [place] [address] Gastroesophageal reflux disease without esophagitis Allergies No known active allergiesdocumented as of this encounter (statuses as of 01/14/2024) Medications Famotidine 20 MG Oral Tablet (Pepcid)Indicati ons:Gastroesopha geal reflux disease without esophagitis TAKE ONE TABLET BY MOUTH NIGHTLY AT BEDTIME 90 Tablet 3 03/20/19 24 Active Atorvastatin Calcium 10 MG Oral Tablet (Lipitor)Indicat ions:Dyslipidemi a, goal LDL below 100 TAKE ONE TABLET BY MOUTH IN THE MORNING 90 Tablet 2 05/01/19 24 Active Lisinopril 10 MG Oral Tablet (Prinivil)Indica tions:Essential hypertension with goal blood pressure less than 140/90 Take 1 Tablet by mouth in the morning. 90 Tablet 3 09/08/19 24 Active Metoprolol Succinate ER 50 MG Oral Tablet Extended Release 24 Hour (toPROL XL)Indications:H TN, goal below 140/90 TAKE 1 TABLET BY MOUTH EVERY MORNING 90 Tablet 3 11/29/19 24 Active Eliquis 5 MG Oral Tablet (Apixaban)Indica tions:Paroxysmal atrial fibrillation (HCC) TAKE 1 TABLET BY MOUTH TWICE DAILY EVERY MORNING AND BEFORE BEDTIME 180 Tablet 3 12/14/19 24 Active amLODIPine Besylate 5 MG Oral Tablet (Norvasc)Indicat ions:Palpitation s,Left chest pressure,Diastol ic dysfunction TAKE ONE TABLET BY MOUTH EVERY MORNING 90 Tablet 1 01/10/20 24 Active Pantoprazole Sodium 20 MG Oral Tablet Delayed Release (Protonix)Indica tions:Gastroesop hageal reflux disease without esophagitis TAKE 1 TABLET BY MOUTH TWICE DAILY every morning and every evening 180 Tablet 2 01/14/20 24 Active Pantoprazole Sodium 20 MG Oral Tablet Delayed Release (Protonix)Indica tions:Gastroesop hageal reflux disease without esophagitis TAKE 1 TABLET BY MOUTH EVERY MORNING AND EVENING 60 Tablet 3 09/08/19 24 024 Discontinued documented as of this encounter (statuses as of 01/14/2024) Active Problems Problem Noted Date Diagnosed Date Paroxysmal atrial fibrillation 07/30/2022 Screening PSA (prostate specific antigen) 2016 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 GERD (gastroesophageal reflux disease) 4 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 Diastolic dysfunction 10/26/2011 Abnormal electrocardiogram 04/24/2011 Dyslipidemia, goal LDL below 100 HTN, goal below 140/90 documented as of this encounter (statuses as of 01/14/2024) Resolved Problems Problem Noted Date Diagnosed Date [...] as of this encounter (statuses as of 01/14/2024) Immunizations Name Administration Dates Next Due COVID-19 [...] 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 file Not on file documented as of this encounter Miscellaneous Notes * Telephone Encounter - Raven Villafuerte RPh - 01/14/2024 10:28 AM EST Signed Prescriptions: Disp Refills Pantoprazole Sodium 20 MG Oral Tablet Amy*180 Ta*2 Sig: TAKE 1 TABLET BY MOUTH TWICE DAILY every morning and every eveningAuthorizing Provider: LUDA MEIER User: RAVEN VILLAFUERTE documented in this encounter Plan of Treatment Upcoming Encounters Date Type Department Care Team (Late st Contact Info) Description 03/10/2024 1:45 PM EST Office [facility] [address] [facility] [place] [address] Stewart Villarreal MD [address] [facility] [place] [address] Scheduled Procedures Name Priority Associated Diagnoses Date/Ti [...] Ratio 05/10/20262 024, 01/29/2022, 06/02/2010 Diabetes Screening 11/16/2026 11/17/2023, [...] Gastroesophageal reflux disease without esophagitis Esophageal reflux documented in this encounter Care Teams Buckram Sewer Relationship Specialty Start Date End Date Luda Meier DO [address] [place] [address] PCP - General Family Medicine 02/03/18 documented as of this encounter
--- OUTSIDE RECORDS SUMMARY | 2024-04-22 07:22 | External Medical Summary | Summary of Care ---
Author Name Unknown Organization [facility] Address [address] [place] [address] Phone [phone] Care Team Providers Care Virologist Name Role Phone JassXin robledo Primary Care Provider [phone] Reason for Visit * Reason Comments Outpatient Testing Encounter Details Date Type Department Care Team (Late st Contact Info) Description 03/10/2024 11:10 AM EST Laboratory Laboratory, [facility] [address] [place] [address] [facility] [address] [place] [address] Dyslipidemia, goal LDL below 100; HTN, goal below 140/90; Elevated alkaline phosphatase in ; Screening PSA (prostate specific antigen) Allergies No known active allergiesdocumented as of [...] 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 [address] [place] [address] Stewart Villarreal MD [address] [facility] [place] [address] 09/25/2024 9:50 AM EDT Office Visit [facility] [address] [place] [address] Xin Floyd DO [address] [place] [address] Pending Results Name Type Priority Associated Diagnoses [...] specific antigen) 03/10/2024 10:46 AM EST Scheduled Procedures Name Priority Associated Diagnoses Date/Ti [...] LDL below 100 Other and unspecified hyperlipidemia HTN, goal below 140/90 Unspecified essential hypertension Elevated alkaline phosphatase in Other specified conditions originating in the period Screening PSA (prostate specific antigen) Special screening for malignant neoplasm of prostate documented in this encounter Care Teams Virologist Relationship Specialty Start Date End Date Xin Floyd DO PCP - General Family Medicine 02/03/18 documented as of this encounter
--- OUTSIDE RECORDS SUMMARY | 2024-04-22 07:22 | External Medical Summary | Summary of Care ---
Author Name Unknown Organization [facility] Address [address] [facility] [place] [address] Phone [phone] Care Team Providers Care Quality Engineer Name Role Phone JassLuda robledo Rosario VAUGHN Primary Care Provider Reason for Visit * Reason Comments Skin Check Pt presents today fo r a FBSC, spot on right side of nose, itchy spot on scalp, itchy mole on left side of backHx of NMSC Encounter Details Date Type Department Care Team (Late st Contact Info) Description 03/10/2024 1:45 PM EST Office Visit Dermatology [facility] [place] [address] [facility] [place] [address] Stewart Villarreal MD [address] [facility] [place] [address] Actinic skin damage*; Seborrheic keratoses; Hx of basal cell carcinoma; Scar; Fibrous papule of nose; Rocha angioma Allergies No known active allergiesdocumented as of [...] 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 A few spots of concern New spot on fright side of nose Itchy spot in scalp Rough itchy spot on back DERMATOLOGIC HISTORY: 2022 - BCC, left neck REVIEW OF SYSTEMS: CONSTITUTIONAL: negative SKIN: No new or changing moles or rashes other than those noted in HPI HEME/LYMPH: No new or enlarging lumps or bumps OBJECTIVE: GEN: Healthy, alert, no distress, appears oriented, pleasant, and cooperative SKIN: Detailed exam of hair, face, trunk, arms, and legs Right nasal tip - red dome-shaped papule Multiple Scattered bright red to violaceous macules and domed papules over torso Well-healed scar(s) at primary site(s) without evidence of recurrence Scattered on face, chest, back - diffuse mottled hypopigmented and hyperpigmented macules without significant irregularity. Associated telangiectasias At the trunk and extremities are several scattered dumont/brown hyperkeratotic stuck on appearing waxypapules. ASSESSMENT/PLAN: Rocha angioma(s) - The benign nature of these lesions was discussed with the patient and that no treatment is indicated today. Scar(s), History of Nonmelanoma Skin Cancer - Well healed scar(s) with no evidence of recurrence - Recommended periodic skin exams and instructed to call clinic if patient notices any changing lesions, including rapid enlargement, changes in color or shape or symptoms, bleeding, or other concerns. The common features and behavior of non-melanoma skin cancers (e.g. basal cell carcinoma/squamouscell carcinoma) as well as the features of melanoma were also reviewed. -Daily sun protection recommended including physical (i.e. clothing) and chemical blockers. Broad spectrum sunscreens with at least SPF 30 for UVA and UVA protection were recommended. Chronic Actinic Damage - Discussed that skin changes are due to chronic sun exposure. - Daily sun protection recommended as discussed above Seborrheic keratoses (including back and scalp) - The benign nature of these lesions was discussed with the patient and that no treatment is indicated today. Stewart Villarreal MD REF: LUDA MEIER PCP: LUDA MEIER documented in this encounter Nursing Notes * Kathy Rey MED ASSIST - 03/10/2024 1:28 PM EST Chief Complaint Patient presents with Skin Check Pt presents today for a FBSC, spot on right side of nose, itchy spot on scalp, itchy mole on left side of back Hx of NMSC documented in this encounter Plan of Treatment Upcoming Encounters Date Type Department Care Team (Late st Contact Info) Description 09/25/2024 9:50 AM EDT Office Visit [facility] [address] [place] [address] Luda Meier, [address] [facility] [address] 03/19/2025 8:15 AM EST Office Visit Dermatology [facility] [address] [facility] [place] [address] Stewart Villarreal MD [address] [facility] [place] [address] Scheduled Procedures Name Priority Associated Diagnoses Date/Ti [...] as of this encounter Visit Diagnoses Diagnosis Actinic skin damage- Primary Other dermatitis due to solar radiation Seborrheic keratoses Hx of basal cell carcinoma Personal history of other malignant neoplasm of skin Scar Scar condition and fibrosis of skin Fibrous papule of nose Benign neoplasm of skin of other and unspecified parts of face Rocha angioma Nevus, non-neoplastic documented in this encounter Care Teams Quality Engineer Relationship Specialty Start Date End Date Luda Meier DO PCP - General Family Medicine 02/03/18 documented as of this encounter
--- OUTSIDE RECORDS SUMMARY | 2024-04-22 07:22 | External Medical Summary | Summary of Care ---
Author Name Unknown Organization [facility] Address [address] [facility] [place] [address] Phone [phone] Care Team Providers Care Sales And Marketing Vice President Name Role Phone EverettXin Rosario VAUGHN Primary Care Provider [phone] Reason for Visit * Reason Onset Date Comments Follow Up 12/15/2023 Encounter Details Date Type Department Care Team (Late st Contact Info) Description 12/15/2023 9:30 AM EDT [facility]uled [facility] [address] [facility] [place] [address] Nurse Ric Gen Surg [facility] [address] [facility] [place] [address] Arrived Allergies No known active allergiesdocumented as of this encounter (statuses as of 12/15/2023) Medications Medication Sig Dispensed Refills Start Date End Date Status amLODIPine Besylate 5 MG Oral Tablet (Norvasc)Indications: Palpitations,Left chest pressure,Diastolic dysfunction TAKE ONE TABLET BY MOUTH EVERY MORNING 90 Tablet 3 01/07/2023 Active Famotidine 20 MG Oral Tablet (Pepcid)Indications:G astroesophageal reflux disease without esophagitis TAKE ONE TABLET BY MOUTH NIGHTLY AT BEDTIME 90 Tablet 3 03/20/2023 Active Atorvastatin Calcium 10 MG Oral Tablet (Lipitor)Indications: Dyslipidemia, goal LDL below 100 TAKE ONE TABLET BY MOUTH IN THE MORNING 90 Tablet 2 05/01/2023 Active Lisinopril 10 MG Oral Tablet (Prinivil)Indications :Essential hypertension with goal blood pressure less than 140/90 Take 1 Tablet by mouth in the morning. 90 Tablet 3 09/08/2023 Active Pantoprazole Sodium 20 MG Oral Tablet Delayed Release (Protonix)Indications :Gastroesophageal reflux disease without esophagitis TAKE 1 TABLET BY MOUTH EVERY MORNING AND EVENING 60 Tablet 3 09/08/2023 Active Metoprolol Succinate ER 50 MG Oral Tablet Extended Release 24 Hour (toPROL XL)Indications:HTN, goal below 140/90 TAKE 1 TABLET BY MOUTH EVERY MORNING 90 Tablet 3 11/29/2023 Active Eliquis 5 MG Oral Tablet (Apixaban)Indications :Paroxysmal atrial fibrillation (HCC) TAKE 1 TABLET BY MOUTH TWICE DAILY EVERY MORNING AND BEFORE BEDTIME 180 Tablet 3 12/14/2023 Active documented as of this encounter (statuses as of 12/15/2023) Active Problems Problem Noted Date Diagnosed Date Paroxysmal atrial fibrillation 07/30/2022 Screening PSA (prostate specific antigen) 2016 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 GERD (gastroesophageal reflux disease) 4 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 Diastolic dysfunction 10/26/2011 Abnormal electrocardiogram 04/24/2011 Dyslipidemia, goal LDL below 100 HTN, goal below 140/90 documented as of this encounter (statuses as of 12/15/2023) Resolved Problems Problem Noted Date Diagnosed Date [...] as of this encounter (statuses as of 12/15/2023) Immunizations Name Administration Dates Next Due COVID-19 [...] for ages 0-17 years) Not on file 06 /05/2023 Food Insecurity Answer Date Recorded Do you [...] encounter Miscellaneous Notes * Telephone Encounter - Hayley Valdivia LPN - 12/15/2023 8:07 AM EDT PATIENT IS S/p lap nerissa on 12/13/[address] Jose Chambers Pain Level- sore Meds being taken for pain- tylenol Are pain meds effective- yes Incision sites- bruised by umbilical are Does the patient have a drain- no Does the patient have dressings? Are they aware of dressing instructions- yes Appetite- ok Nausea/vomiting- no Bowel movement- not yet, not uncommon for him Activity- walking Complying with activity restrictions- yes Coughing and deep breathing- yes Questions or concerns- none Post operative follow up scheduled for 12/29/2023 documented in this encounter Plan of Treatment Upcoming Encounters Date Type Department Care Team (Late st Contact Info) Description 12/29/2023 8:30 AM EDT Office Visit General Surgery, [facility] [address] [place] [address] Jose Chambers MD [address] [place] [address] 03/10/2024 1:45 PM EST Office Visit Dermatology [facility] [address] [place] [address] Stewart Villarreal MD [address] [place] [address] Scheduled Procedures Name Priority Associated Diagnoses Date/Ti me COLONOSCOPY FLEXIBLE PROXIMAL DIAGNOSTIC Recall History of colon polyps ESOPHAGOGASTRODUODENOSCOPY ( EGD), FLEXIBLE, TRANSORAL, DIAGNOSTIC Recall Jaoquin's esophagus Health Maintenance Due Date Last Done [...] filedocumented as of this encounter Care Teams Sales And Marketing Vice President Relationship Specialty Start Date End Date Xin Floyd DO [address] [place] [address] PCP - General Family Medicine 02/03/18 documented as of this encounter
--- OUTSIDE RECORDS SUMMARY | 2024-04-22 07:22 | External Medical Summary ---
Author Name Unknown Address Unknown Organization [id number]:LABORATORY [facility] - [address] [place] [address] Laboratory Report Ordering Provider Test Date Status LUDASAMISKI 03/10/2024 10:46:48 Final Observation Date Value Abnormality Reference (Units ) Status Triglyceride 03/10/2024 10:46:48 83 <=174 ( mg/dL) Final Triglyceride Reference Range s (mg/dL):
<150 Acceptable
150-174 Borderline high
175-499 High
>=500 Very high Cholesterol 03/10/2024 10:46:48 118 <200 (mg /dL) Final Total Cholesterol Reference Ranges (mg/dL):
<200 Desirable
200-239 Borderline high
>=240 High HDL 03/10/2024 10:46:48 45 >39 (mg/dL ) Final HDL Cholesterol Reference Ra nges (mg/dL):
>=60 High (Desirable)
<50 Low (Undesirable) For Females
<40 Low (Undesirable) For Males NON-HDL CHOLESTEROL 03/10/2024 10:46:48 73 <=159 (mg/dL) Final Non-HDL Cholesterol Referenc e Range (mg/dL):
<100 Target level for high risk ASCVD patient
<130 Optimal for general population
130-159 Near optimal for general population
160-189 Borderline High
190-219 High
>=220 Very High LDL, (calculated) 03/10/2024 10:46:48 56 <= 129 (mg/dL) Final LDL Cholesterol Reference Ra nges (mg/dL):
<70 Target level for high risk ASCVD patient
<100 Optimal for general population
100-129 Near optimal for general population
130-159 Borderline high
160-189 High
>=190 Very high Performing Location LABORATORY [facility] - [address] [facility] [address]
--- OUTSIDE RECORDS SUMMARY | 2024-04-22 07:22 | External Medical Summary ---
Author Name Unknown Address Unknown Organization [id number]:LABORATORY [facility] [place] - [address] [place] [address] Laboratory Report Ordering Provider Test Date Status HARDEEP LARES 03/10/2024 10:46:48 Final Observation Date Value Abnormality Reference (Units ) Status Albumin 03/10/2024 10:46:48 4.4 3.8-5.0 (g/dL) Final AST (Aspartate aminotransferase) 03/10/2024 10:46:48 28 10-50 (U/L) Final Alk Phos 03/10/2024 10:46:48 191 Above high normal 35-130 (U/L) Final ALT (Alanine aminotransferase) 03/10/2024 10:46:48 29 10-50 (U/L) Final Bilirubin, Total 03/10/2024 10:46:48 1.0 <=1.2 (mg/dL) Final Bilirubin, Direct 03/10/2024 10:46:48 0.3 0.0-0.3 (mg/dL) Final Protein 03/10/2024 10:46:48 6.3 6.0-8.3 (g/dL) Final Performing Location LABORATORY [facility] [facility] - [address] [place] [place] [address]
--- OUTSIDE RECORDS SUMMARY | 2024-04-22 07:22 | External Medical Summary | Summary of Care ---
Author Name Unknown Organization [facility] Address [address] [facility] [place] [address] Phone [phone] Care Team Providers Care Professor Of Radiology Name Role Phone Xin Floyd DO Primary Care Provider [phone] Reason for Visit * Reason Onset Date Comments Health Maintenance 2024 Encounter Details Date Type Department Care Team (Late st Contact Info) Description 2024 [facility]phone [facility] [address] [facility] [place] [address] Xin Floyd DO [address] [facility] [place] [address] Health Maintenance Allergies No known active allergiesdocumented as of this encounter (statuses as of 2024) Medications Famotidine 20 MG Oral Tablet (Pepcid)Indicatio [...] as of this encounter (statuses as of 2024) Active Problems Problem Noted Date Diagnosed Date Paroxysmal atrial fibrillation 07/30/2022 Screening PSA (prostate specific antigen) 2016 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 Not on file Not on file documented as of this encounter Miscellaneous Notes * Telephone Encounter - Iveth Azul LPN - 2024 10:58 AM EST Care Gaps Comprehensive Care Outreach Last Office/Telemedicine Visit: Visit date not found (in office), Visit date not found (telemedicine) Next Office Visit: Visit date not found Hemoglobin AIC Results: No results found for: "HEMOGLOBIN A1C" BP Readings from Last 1 Encounters: 11/16/23 142/72 Reviewed Health Maintenance below: Health Maintenance Topic Date Due Pneumococcal Vaccine: 50+ Years (1 of 1 - PCV) Never done Depression Screening 03/08/2019 DTap/Tdap Vaccines (2 - Td or Tdap) 03/15/2022 Influenza Vaccine (FLU shot) (1) Never done COVID-19 Vaccine (3 - 2023- season) 2023 ov Care Gap Outreach Action Taken: Instapio message sent documented in this encounter Plan of Treatment Upcoming Encounters Date Type Department Care Team (Late st Contact Info) Description 03/10/2024 1:45 PM EST Office Visit D[facility]atology [facility] [place] [address] [place] [address] Stewart Villarreal MD [address] [place] [address] Scheduled Procedures Name Priority Associated Diagnoses Date/Ti [...] filedocumented as of this encounter Care Teams Professor Of Radiology Relationship Specialty Start Date End Date Xin Floyd DO PCP - General Family Medicine 02/03/18 documented as of this encounter
--- OUTSIDE RECORDS SUMMARY | 2024-04-22 07:22 | External Medical Summary | Summary of Care ---
Author Name Unknown Organization [facility] Address [address] [facility] [place] [address] Phone [phone] Care Team Providers Care Naphtha Washing System Operator Name Role Phone EverettXin Rosario VAUGHN Primary Care Provider [phone] Reason for Visit * Reason Comments Post-Op Encounter Details Date Type Department Care Team (Late st Contact Info) Description 12/30/2023 8:45 AM EDT Office Visit General Surgery, [facility] [address] [place] [id number] Jose Chambers MD [address] [place] [id number] S/P laparoscopic cholecystectomy* Allergies No known active allergiesdocumented as of this encounter (statuses as of 12/30/2023) Medications Medication Sig Dispensed Refills Start Date [...] as of this encounter (statuses as of 12/30/2023) Active Problems Problem Noted Date Diagnosed Date Paroxysmal atrial fibrillation 07/30/2022 Screening PSA (prostate specific antigen) 2016 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 GERD (gastroesophageal reflux disease) 4 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 This male is doing well post-op. Pt. is tolerating a regular diet, having bowel movements, and has good pain control. No postoperative concerns. PE: There were no vitals taken for this visit. Gen: looks well, alert Abdomen: soft, nontender, non-distended, incisions clean, dry and intact Assessment: No issues following laparascopic cholecystectomy. Return to full activity in three weeks following surgery. If diarrhea occurs, discussed benefit of a low fat diet for six weeks. Plan: Followup in the office PRN or if questions arise. Jose Chambers MD 12/30/2023 8:18 AM documented in this encounter Nursing Notes * Zeina Green LPN - 12/30/2023 8:14 AM EDT Pt presents in office for post op lap nerissa 12/13/23 C/o- loose bowels pt expects with healing, bruising/tender at incision. documented in this encounter Plan of Treatment Upcoming Encounters Date Type Department Care Team (Late st Contact Info) Description 03/10/2024 1:45 PM EST Office Visit D[facility]atology [facility] Durant [address] [facility] [place] [address] Stewart Villarreal MD [address] [facility] [place] [address] Scheduled Procedures Name Priority Associated Diagnoses Date/Ti [...] as of this encounter Visit Diagnoses Diagnosis S/P laparoscopic cholecystectomy- Primary Other postprocedural status documented in this encounter Care Teams Naphtha Washing System Operator Relationship Specialty Start Date End Date Xin Floyd DO [address] [place] [address] PCP - General Family Medicine 02/03/18 documented as of this encounter
--- OUTSIDE RECORDS SUMMARY | 2024-04-22 07:22 | External Medical Summary ---
Author Name Unknown Address Unknown Organization [id number]:[facility] [place] [address] [facility] [address] Laboratory Report Ordering Provider Test Date Status BETH LARESCarlene 03/10/2024 10:46:48 Final Observation Date Value Abnormality Reference (Units ) Status BUN 03/10/2024 10:46:48 16 6-20 (mg/dL) Final Creatinine 03/10/2024 10:46:48 1.0 0.6-1.2 (mg/dL) Final Glomerular filtration rate/1.73 sq M.predicted [Volume Rate/Area] in Serum, Plasma or Blood by Creatinine-based formula (CKD-EPI) 03/10/2024 10:46:48 81 >=60 (mL/min) Final eGFR is calculated based on the CKD-EPI 2020 equation. Sodium 03/10/2024 10:46:48 141 135-146 (m mol/L) Final Potassium 03/10/2024 10:46:48 4.0 3.5-5.1 (m mol/L) Final Cl 03/10/2024 10:46:48 103 98-107 (mm ol/L) Final CO2 03/10/2024 10:46:48 27 22-32 (mmo l/L) Final Anion gap 03/10/2024 10:46:48 11 7-15 (mmol /L) Final Glucose 03/10/2024 10:46:48 85 70-120 (mg /dL) Final Calcium 03/10/2024 10:46:48 9.2 8.4-10.2 ( mg/dL) Final Performing Location [facility] [place] [address] [facility] [address]
--- NOTE | 2024-04-22 07:56 | Emergency Department Note ---
ED Provider Note History of Present Illness Chief Complaint: Illness Stated Complaint: HEADACHE, WEAKNESS, CHILL Time Seen by Provider: 04/22/24 07:20 64-year-old male who presents to the emergency department for multiple complaints, including headache, weakness, shaking chills, fatigue, loss of voice and 10 pound weight loss over the past week. The patient reports that he underwent a liver biopsy on 04/11/2024 at the [facility]. The patient reports that he developed most of his symptoms the day following his biopsy. He then started to develop a headache this past Wednesday. He lost his voice yesterday, with new onset of bone shaking chills yesterday as well. The patient reports that his urine looks dark, and has also had pale stools as well. The patient denies any sore throat, cough, chest pain, shortness of breath or abdominal pain. Patient has not noticed any rash. His reports that he did have a low blood pressure yesterday as well with an increased heart rate. Patient does report a history of atrial fibrillation that has been rate controlled now for quite some time. 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 The patient is on Eliquis and amlodipine. The patient currently rates his headache a 7 out of 10. The patient reports that he had his liver biopsy secondary to chronically elevated alkaline phosphatase and bilirubin levels. Home Medications Medication Instructions Recorded Confirmed Type amlodipine 5 mg tablet 5 mg PO HS 11/30/23 04/22/24 History apixaban 5 mg tablet (Eliquis) 5 mg PO BID 11/30/23 04/22/24 History atorvastatin 10 mg tablet 10 mg PO QAM 11/30/23 04/22/24 History famotidine 20 mg tablet 20 mg PO HS 11/30/23 04/22/24 History lisinopril 10 mg tablet 10 mg PO QAM 11/30/23 04/22/24 History metoprolol succinate 50 mg 50 mg PO HS 11/30/23 04/22/24 History tablet,extended release 24 hr pantoprazole 20 mg tablet,delayed 20 mg PO BID 11/30/23 04/22/24 History release Allergies Allergy/AdvReac Type Severity Reaction Status Date / Time No Known Allergies Allergy Verified 04/22/24 09:18 Past Med/Surg History Problem List (Updated 04/22/24 @ 17:22 by Artur Houston) Thrombocytopenia (Acute) History of liver biopsy (Acute) Acute hypokalemia (Acute) Urinary tract infection (Acute) Bilirubinemia (Acute) Acute kidney injury (Acute) Thrombocytopenia KATHARINA (acute kidney injury) Cholelithiasis Hyperbilirubinemia (Acute) Body aches (Acute) 09/08/14 Cluster headache (Chronic) 09/08/14 Hypertension (Chronic) H/O diastolic dysfunction (Chronic) Dyslipidemia (Chronic) Medical History Paroxysmal atrial fibrillation Hx of vertigo Barretts esophagus Osteoarthritis mild neck arthritis Hx of basal cell carcinoma On anticoagulant therapy H/O diastolic dysfunction (2003) Hyperlipidemia Hypertension History of COVID-19 ~ - mild symptoms Surgical History Status post cholecystectomy History of appendectomy History of colonoscopy History of esophagogastroduodenoscopy (EGD) H/O basal cell carcinoma excision from the neck area Family History Other No family history of adverse response to anesthesia Social History Smoking Status: Former smoker Tobacco Type: Cigarettes Cigarettes Per Day: Quit 40 years ago; Second Hand Exposure: No; Do You Dip or Chew Tobacco: No; Tobacco Cessation Education Requested by Patient: No Hx Alcohol Use: Yes Alcohol type: beer and hard liquor Hx Substance Use: No Preferred Language: Zimbabwean Communication Ability: Effective Dye Tank Tender Required: No Beliefs That Will Affect Care: None Current Living Situation: Spouse Other Information That Helps Us Care for You: No Feels Safe at Home: Yes Safety Concerns: Feels Safe At This Time Assistive Devices: Glasses Physical Exam Vital Signs Vital Signs - 24 hr 04/22/24 07:15 04/22/24 07:37 04/22/24 07:57 Temperature 36.4 C L Temperature Source Oral Pulse Rate 123 H 107 H 97 H Pulse Rate [Apical] Pulse Rate from SpO2 Sensor 97 H Pulse Rhythm Pulse Rhythm [Apical] Pulse Strength [Apical] Respiratory Rate 18 16 Respiratory Effort / Characteristics Non-Labored Spontaneous Respiratory Depth Normal Respiratory Pattern Blood Pressure 100/66 107/62 Blood Pressure [Left Arm] Blood Pressure Mean 77 77 Blood Pressure Mean [Left Arm] Blood Pressure Position [Left Arm] Pulse Oximetry 99 97 Oxygen Delivery Method Room Air Room Air Sepsis Recent Fever Within 48 Hours No Sepsis New/Unexplained Change in Mental Status N/A Sepsis Action Taken by Nursing No Action Required 04/22/24 08:08 04/22/24 08:08 04/22/24 08:30 Temperature Temperature Source Pulse Rate 97 H 88 Pulse Rate [Apical] 97 H Pulse Rate from SpO2 Sensor 89 Pulse Rhythm Regular Pulse Rhythm [Apical] Regular Pulse Strength [Apical] Normal Respiratory Rate 12 12 16 Respiratory Effort / Characteristics Non-Labored Spontaneous Respiratory Depth Normal Respiratory Pattern Regular Blood Pressure 105/65 Blood Pressure [Left Arm] 107/62 Blood Pressure Mean 78 Blood Pressure Mean [Left Arm] 77 Blood Pressure Position [Left Arm] Semi-fowlers Pulse Oximetry 97 97 97 Oxygen Delivery Method Room Air Room Air Room Air Sepsis Recent Fever Within 48 Hours Sepsis New/Unexplained Change in Mental Status Sepsis Action Taken by Nursing 04/22/24 09:03 04/22/24 10:00 04/22/24 10:12 Temperature Temperature Source Pulse Rate 87 79 Pulse Rate [Apical] Pulse Rate from SpO2 Sensor 86 82 Pulse Rhythm Pulse Rhythm [Apical] Pulse Strength [Apical] Respiratory Rate 16 16 Respiratory Effort / Characteristics Respiratory Depth Respiratory Pattern Blood Pressure 112/67 115/71 Blood Pressure [Left Arm] Blood Pressure Mean 82 85 Blood Pressure Mean [Left Arm] Blood Pressure Position [Left Arm] Pulse Oximetry 98 99 Oxygen Delivery Method Room Air Room Air Sepsis Recent Fever Within 48 Hours Sepsis New/Unexplained Change in Mental Status Sepsis Action Taken by Nursing 04/22/24 10:45 04/22/24 11:30 Temperature Temperature Source Pulse Rate 78 Pulse Rate [Apical] Pulse Rate from SpO2 Sensor 76 Pulse Rhythm Pulse Rhythm [Apical] Pulse Strength [Apical] Respiratory Rate 16 Respiratory Effort / Characteristics Respiratory Depth Respiratory Pattern Blood Pressure 115/66 118/72 Blood Pressure [Left Arm] Blood Pressure Mean 82 84 Blood Pressure Mean [Left Arm] Blood Pressure Position [Left Arm] Pulse Oximetry 94 Oxygen Delivery Method Room Air Sepsis Recent Fever Within 48 Hours Sepsis New/Unexplained Change in Mental Status Sepsis Action Taken by Nursing CONSTITUTIONAL: Healthy and well nourished. Patient does not appear acutely ill or toxic. HEENT: Patient has loss of voice. Examination shows mild posterior pharyngeal erythema without any tonsillar hypertrophy or exudates. Negative trismus. Normocephalic, atraumatic. Pupils equal, round and reactive. Mucous membranes are dry. NECK: Full active range of motion without discomfort. No nuchal rigidity. LYMPHATICS: No anterior or posterior chain cervical chain adenopathy. RESPIRATORY: Clear to auscultation bilaterally with no wheezing, crackles, rhonchi or stridor. CARDIOVASCULAR: Regular rate and rhythm with no murmurs, rubs or gallops. GASTROINTESTINAL: Bowel sounds present in all quadrants. No abdominal tenderness to palpation. MUSCULOSKELETAL: No erythema or inflammation over major joints. INTEGUMENTARY: No rash or other significant dermatologic conditions noted. HEMATOLOGIC: No ecchymosis or petechiae. PSYCHIATRIC: Positive affect. NEUROLOGIC: No focal neurologic deficits noted. Course Course Patient history and physical exam were performed. Nurses notes reviewed. Vital signs are reviewed, showing a mild tachycardia 107 bpm. The patient is afebrile. BP is a little soft at 100/66. The patient is not hypoxic. IV access was established, and labs are drawn. The patient was hydrated with a liter normal saline, and administered oral tramadol, Zofran ODT and IV Tylenol. The patient refused any stronger analgesics for his headache. An ECG was performed, showing a normal sinus rhythm. The patient was placed on pile driving setter while in the emergency department. A portable chest x-ray was normal. Further review of labs shows multiple abnormalities, including mildly elevated white count of 12.46 with neutrophilic shift and no bandemia. Patient also has a thrombocytopenia with a platelet count of 71. Platelet count was normal when compared with labs back in 2021. Sed rate is elevated at 60. Coagulation studies are normal. CMP does show a mild hyponatremia, hypokalemia and a creatinine of 3.05. Total bilirubin is also elevated at 6.1, which is elevated when compared to his prior total bilirubin in 2021 of 1.3. Alkaline phosphatase is also elevated, again with prior elevation with labs. There was delay in urinalysis test results, however of that also came back positive for infection, with hematuria, positive nitrites and trace leukocyte esterase with 2+ urine bacteria present. Urine cultures are pending. At this point, I did discuss the case with Dr. Brink, ED attending physician, who recommended hospitalist consult. I did place an order for IV Rocephin for the patient's UTI. I did discuss the case with our Combine Inspector, who also reviewed prior [facility] records, including his biopsy report that was benign, as well as prior labs for comparison. I then discussed the case with the [facility] hospitalist service (Dr. Mcnamara) who was concerned regarding the patient's laboratory findings, and recommended CT imaging of the abdomen since the patient just had a recent liver biopsy. I did indicate that the patient denied any abdominal discomfort, however the CT scan was ordered. Dr. Mcnamara also discussed the case further with Dr. Corea, teacher physically impaired on-call, who indicated that the patient should be transferred to [facility] [address] if the CT scan is abnormal. When I would back in to discuss the patient with plan of care at this time, the patient admitted that he did not tell me that he has had some mild right-sided abdominal cramping over the past several days. The patient was administered additional IV Dilaudid for his headache, reporting that previous treatment did not provide any relief. Noncontrast CT imaging of the abdomen and pelvis was performed, showing ill-defined hypodensity in the right hepatic lobe, possibly reflecting the area of biopsy. No other hemorrhage, nephrolithiasis, hydronephrosis, diverticulitis or other acute intra-abdominal findings were noted. At this point, multiple conversations between the hospitalist service, attending physician and gastroenterology at [facility] [address], was initiated by Dr. Brink; see his dictation for further discussion of these conversations. Based on his conversation, decision was made to admit the patient to our facility for further monitoring, including trending of his hemoglobin, total bilirubin and repeat ultrasound imaging. I did reevaluate the patient, who did report improvement of his headache and other symptoms. Please see hospitalist dictations for further treatment and final disposition. Administered Medications Potassium Chloride (K Victor Manuel / Wtr) 10 meq in 100 mls @ 100 mls/hr IV Q1H PARK Stop: 04/22/24 17:44 Last Admin: 04/22/24 16:19 Dose: 100 mls/hr Documented By: MICHAELA Sodium Chloride (Nss) 1,000 mls @ 80 mls/hr IV .[id number] ONE Stop: 04/23/24 04:09 Last Admin: 04/22/24 16:18 Dose: 80 mls/hr Documented By: MICHAELA Discontinued Medications Hydromorphone HCl (Hydromorphone Inj 0.5 Mg/0.5 Ml Syr) 0.25 mg IV NOW STA Stop: 04/22/24 09:50 Last Admin: 04/22/24 10:13 Dose: 0.25 mg Documented By: Acetaminophen (Ofirmev) 1,000 mg in 100 mls @ 400 mls/hr IV NOW STA Stop: 04/22/24 07:58 Last Infusion: 04/22/24 09:10 Dose: Infused Documented By: Admin: 04/22/24 08:02 Dose: 400 mls/hr Documented By: ROSE Sodium Chloride (Nss) 1,000 mls @ 999 mls/hr IV .[id number] ONE Stop: 04/22/24 08:44 Last Infusion: 04/22/24 09:37 Dose: Infused Documented By: Admin: 04/22/24 08:03 Dose: 999 mls/hr Documented By: ROSE Ceftriaxone Sodium (Rocephin) 2,000 mg in 50 mls @ 100 mls/hr IV NOW STA Stop: 04/22/24 10:33 Last Infusion: 04/22/24 11:25 Dose: Infused Documented By: Admin: 04/22/24 10:46 Dose: 100 mls/hr Documented By: Daptomycin 450 mg/ Syringe 9 mls @ 4.5 mls/min IV ONE STA; Protocol Stop: 04/22/24 12:11 Last Admin: 04/22/24 14:00 Dose: 4.5 mls/min Documented By: Piperacillin Sod/Tazobactam Sod (Zosyn) 4.5 gm in 100 mls @ 200 mls/hr IV ONE STA; Protocol Stop: 04/22/24 12:42 Last Infusion: 04/22/24 13:25 Dose: Infused Documented By: Admin: 04/22/24 12:49 Dose: 200 mls/hr Documented By: Magnesium Oxide (Magnesium Oxide 400 Mg Tab) 400 mg PO ONE STA Stop: 04/22/24 12:14 Last Admin: 04/22/24 12:49 Dose: 400 mg Documented By: Ondansetron HCl (Ondansetron Inj 2 Mg/Ml 2 Ml Vial) 4 mg IV NOW STA Stop: 04/22/24 07:45 Last Admin: 04/22/24 08:03 Dose: 4 mg Documented By: ROSE Potassium Chloride (Potassium Chloride Crtab 20 Meq Tabcr) 40 meq PO NOW STA Stop: 04/22/24 08:49 Last Admin: 04/22/24 09:17 Dose: 40 meq Documented By: Tramadol HCl (Tramadol Hcl 50 Mg Tablet) 50 mg PO NOW STA Stop: 04/22/24 07:45 Last Admin: 04/22/24 08:03 Dose: 50 mg Documented By: ROSE Medical Decision Making Medical Records Attestation: I reviewed the patient's medical records. Home Medications was personally reviewed by me Laboratory Data Attestation: I reviewed the patient's lab results. 04/22/24 14:26 04/22/24 14:26 Lab Results 04/22/24 Range/Units 07:40 WBC 12.46 H (4.8-10.8) K/ul RBC 4.93 (4.70-6.10) M/uL Hgb 14.3 (14.0-18.0) g/dl Hct 40.2 L (42.0-52.0) % MCV 81.5 (80.0-100.0) fL MCH 29.0 (25.0-34.0) pg MCHC 35.6 (32.0-36.0) g/dL RDW Std Deviation 38.2 (36.4-46.3) fL RDW Coeff of Conrad 12.9 (11.5-14.5) % Plt Count 71 L (130-400) K/uL MPV 11.5 (9.4-12.4) fL Immature Gran % (Auto) 1.2 % Neut % (Auto) 84.7 % Lymph % (Auto) 4.8 % [place] % (Auto) 8.0 % Eos % (Auto) 0.9 % Baso % (Auto) 0.4 % Neut # (Auto) 10.55 H (1.40-6.50) K/uL Lymph # (Auto) 0.60 L (1.20-3.40) K/uL [place] # (Auto) 1.00 H (0.11-0.59) K/uL Eos # (Auto) 0.11 (0.00-0.50) K/uL Baso # (Auto) 0.05 (0.00-0.20) K/uL Immature Gran # (Auto) 0.15 (0.01-0.20) K/uL Toxic Granulation 1+ Toxic Vacuolation 3+ Dohle Bodies 2+ Platelet Estimate Decreased L (Normal) ESR 60 H (0-20) mm/hr PT 11.4 (9.0-12.0) Seconds INR 1.1 (0.9-1.1) Sodium 134 L (136-145) mmol/L Potassium 3.2 L (3.5-5.1) mmol/L Chloride 96 L (98-107) mmol/L Carbon Dioxide 26 (21-32) mmol/L Anion Gap 12 H (3-11) BUN 51 H (6-23) mg/dl Creatinine 3.05 H (0.6-1.4) mg/dl Est Cr Clr Drug Dosing 25.7 ml/min eGFR 21.91 BUN/Creatinine Ratio 16.7 (10-20) Glucose 98 (70-99(Fasting)) mg/dl Calcium 8.3 L (8.6-10.3) mg/dl Phosphorus 3.2 (2.5-4.9) mg/dl Magnesium 1.8 (1.7-2.4) mg/dl Total Bilirubin 6.1 H (0.2-1.0) mg/dl AST 39 (13-39) U/L ALT 27 (7-52) U/L Alkaline Phosphatase 198 H (34-104) U/L Total Creatine Kinase 31 (30-223) U/L Troponin I High Sens 4.9 (0-20) pg/ml C-Reactive Protein 20.07 H (0-0.5) mg/dl Total Protein 5.7 L (6.0-8.3) gm/dl Albumin 3.0 L (3.4-5.0) gm/dl Globulin 2.7 (2.5-4.0) gm/dl Albumin/Globulin Ratio 1.1 (0.9-2) TSH 1.855 (0.300-4.500) uIu/ml Urine Color Dark Yellow Urine Appearance Cloudy A (Clear) Urine pH 5.0 (4.5-7.5) Ur Specific [place] 1.019 (1.000-1.030) Urine Protein 1+ H (Negative) Urine Glucose (UA) Negative (Negative) Urine Ketones Trace H (Negative) Urine Blood Trace H (Negative) Urine Nitrite Positive A (Negative) Urine Bilirubin 2+ H (Negative) Urine Urobilinogen Positive H (Negative) Ur Leukocyte Esterase Trace H (Negative) Urine WBC (Auto) 0-5 (0-5) /hpf Urine RBC (Auto) 6-10 H (0-2) /hpf U Hyaline Cast (Auto) 3-5 H (0-2) /lpf U Epithel Cells (Auto) >20 H (0-2) /hpf Urine Bacteria (Auto) 2+ H (None Seen) Granular Casts Present A (None Prsent) /lpf Adenovirus (PCR) Not Detected (NotDetected) B. pertussis DNA (PCR) Not Detected (NotDetected) B.parapertussis DNA PCR Not Detected (NotDetected) C. pneumoniae DNA (PCR) Not Detected (NotDetected) Coronavirus OC43 (PCR) Not Detected (NotDetected) Coronavirus HKU1 (PCR) Not Detected (NotDetected) Coronavirus 229E (PCR) Not Detected (NotDetected) SARS-CoV-2 (PCR) Not Detected (NotDetected) Coronavirus NL63 (PCR) Not Detected (NotDetected) Monoscreen Negative (Negative) Human Metapneumovir PCR Not Detected (NotDetected) Influenza Type A (PCR) Not Detected (NotDetected) Influenza Type B (PCR) Not Detected (NotDetected) M. pneumoniae (PCR) Not Detected (NotDetected) Parainfluenza 1 (PCR) Not Detected (NotDetected) Parainfluenza 2 (PCR) Not Detected (NotDetected) Parainfluenza 3 (PCR) Not Detected (NotDetected) Parainfluenza 4 (PCR) Not Detected (NotDetected) RSV (PCR) Not Detected (NotDetected) Entero/Rhino (PCR) Not Detected (NotDetected) Imaging Data Attestation: I personally reviewed and interpreted this imaging study as follows: My Impression: My interpretation of a portable chest x-ray does not show evidence for pneumonia, pneumothorax or cardiomegaly. My interpretation of noncontrast CT scan of the head does not show evidence for intracranial bleed, midline shift or mass effect. My interpretation of a noncontrast CT of the abdomen and pelvis does not show evidence for hydronephrosis, ureteral calculus, diverticulitis, appendicitis or other concerning findings. No obvious hepatic masses noted. Radiologist does make mention of a ill-defined hypodensity within the right hepatic lobe, possibly representing the area that was recently biopsied. No evidence for hemorrhage is noted. Radiologist's Impression: Chest X-Ray 04/22/24 07:45 EXAM: XR chest 1V portable CLINICAL HISTORY: Weakness. TECHNIQUE: An X-ray image of the chest is obtained in AP projection. COMPARISON: 07/21/2021 CR. FINDINGS: Pulmonary Parenchyma: Lungs are clear bilaterally. No evidence of consolidation, collapse, or focal opacities. No pulmonary nodules are identified. No evidence of pleural effusion or pleural thickening. Heart and Mediastinum: Heart size and shape are normal. No mediastinal widening or masses. No hilar or mediastinal lymphadenopathy. Bony Thorax: Bony thorax appears intact without fractures or deformities. Soft Tissues: Soft tissues overlying the chest wall are unremarkable. IMPRESSION: 1. No acute cardiopulmonary abnormalities are identified. 2. No interval change in comparison with CR on 07/21/2021. Electronically signed by Michelle Nash 04-22-2024 08:[address] 04/22/24 07:45 EXAM: CT Head Without Intravenous Contrast INDICATION: Headache TECHNIQUE: Axial computed tomography images of the head/brain without intravenous contrast. Sagittal and/or coronal reformats are provided. Sagittal and coronal reformatted images were created and reviewed. This CT exam was performed using one or more of the following dose reduction techniques: automated exposure control, adjustment of the mA and/or kV according to patient size, and/or use of iterative reconstruction technique. COMPARISON: 07/21/2021 FINDINGS: Limitations: None. Brain and extra-axial spaces: No abnormality noted. No hemorrhage. No significant white matter disease. No edema. No ventriculomegaly. Bones/joints: No acute changes. Soft tissues: No significant abnormality noted. Vasculature: No acute abnormality noted. Sinuses: No layering fluid in the visualized portions of the paranasal sinuses. Mastoid air cells: No mastoid effusion. Orbits: No significant abnormality noted. IMPRESSION: No abnormality noted. ACT 112: Negative or not required by law. Electronically signed by Danna Pinto 04-22-2024 08:36 AM Abdomen/Pelvis CT 04/22/24 09:40 EXAM: CT Abdomen and Pelvis Without Intravenous Contrast INDICATION: Liver biopsy. Acute kidney insufficiency. TECHNIQUE: Axial computed tomography images of the abdomen and pelvis without intravenous contrast. Sagittal and coronal reformatted images were created and reviewed. This CT exam was performed using one or more of the following dose reduction techniques: automated exposure control, adjustment of the mA and/or kV according to patient size, and/or use of iterative reconstruction technique. COMPARISON: Right upper quadrant ultrasound 09/08/2014 FINDINGS: Limitations: None. Lung bases: No abnormality noted. Pleural space: No visualized pleural effusion or pneumothorax. Heart: Mild cardiomegaly. No pericardial effusion. Mediastinum: No abnormality noted. ABDOMEN: Liver: There is an irregular, poorly defined hypodense mass in the right hepatic lobe measuring approximately 4.2 x 2.7 x 3.8 cm. There is no associated hemorrhage or gas. The liver otherwise appears normal. Gallbladder and bile ducts: Cholecystectomy. No ductal dilation or stone noted. Pancreas: No pancreatic mass, calcification, inflammation or ductal dilation noted. Spleen: The spleen is enlarged to approximately 13.6 cm long. Adrenals: No significant abnormality noted. Kidneys and ureters: Simple right renal cyst/s. No simple cyst follow-up necessary. Left kidney appears normal. No renal stone, hydronephrosis or perinephric fluid. The left kidney appears normal. Stomach and bowel: Hyperdense material in the stomach consistent with ingested contents. PELVIS: Appendix: No findings to suggest acute appendicitis. Bladder: Appears normal for the degree of filling. No stones or inflammation. No large mass. Masses may not be detected in the absence of opacification. Reproductive: No abnormalities noted. ABDOMEN and PELVIS: Intraperitoneal space: No free air. No significant fluid collection. Bones/joints: No acute changes. Soft tissues: Umbilical hernia containing fat. Vasculature: No abdominal aortic aneurysm. Lymph nodes: No pathologically enlarged lymph nodes. IMPRESSION: 1. Ill-defined hypodensity in the right hepatic lobe may reflect the area that was biopsied. No evidence of hemorrhage. 2. Splenomegaly. ACT 112: Negative or not required by law. Electronically signed by Danna Pinto 04-22-2024 10:25 AM ECG Data Attestation: I personally reviewed and interpreted this ECG as follows: Indication: + tachycardia and + weakness Rate (beats per minute): 97 Rhythm: + normal sinus ECG Intervals/blocks: + Normal QRS, + Normal QT and + Normal GA ECG Wiseman: + Normal ECG ST segments: + Normal ST segments Comparison ECG Date: from (07/21/2021) Change: no significant change MDM Narrative Cardiac monitoring: An order was placed for continuous cardiac monitoring. The monitor shows a rate of 97 bpm with a normal sinus rhythm. plating engineer history was reviewed throughout the evaluation, and no dysrhythmias were noted. See ED Course section for further details of today's visit. The patient presents with multiple symptoms today, as discussed in the HPI section. Patient's workup today is rather complicated, showing evidence for an acute kidney injury, hypokalemia, hyponatremia and UTI. It is noted that the patient did undergo a liver biopsy on 04/11/2023. CT imaging of the abdomen and pelvis today does not show evidence for any obvious hemorrhage or free fluid within the abdomen. CT imaging also does not show evidence for any obstructive uropathy, diverticulitis, appendicitis or bowel obstruction. The case was extensively discussed with multiple providers, including attending physician, vocational case manager, [facility] hospitalist and [facility] teacher physically impaired on-call today. Dr. Brink also discussed the case with [facility], who recommended admission to our facility for further trending of labs and repeat imaging. Further details are discussed and he is various reports. Impression Acute kidney injury, Bilirubinemia, Urinary tract infection, Acute hypokalemia, History of liver biopsy, Thrombocytopenia Discharge Plan Visit Data Chief Complaint: Illness Stated Complaint: HEADACHE, WEAKNESS, CHILL ED Provider: Jd Brink ED Midlevel Provider: Artur Houston Discharge Problem: Acute kidney injury, Bilirubinemia, Urinary tract infection, Acute hypokalemia, History of liver biopsy, Thrombocytopenia Patient Disposition: Admitted As Inpatient Discharge Instructions Interventions: ED Discharge Assessment Last Done: 04/22/24 15:53
[2024-04-22] MEDS: ACETAMINOPHEN 1,000 MG/100 ML VIAL IV STA (08:02)
[2024-04-22] MEDS: SODIUM CHLORIDE 0.9% 1,000 ML IV ONE ×2 (08:03→16:18)
[2024-04-22] MEDS: ONDANSETRON INJ 2 MG/ML 2 ML VIAL IV STA (08:03)
[2024-04-22] MEDS: traMADol HCL 50 MG TABLET PO STA (08:03)
--- NOTE | 2024-04-22 08:33 | XRay Report ---
EXAM: XR chest 1V portable CLINICAL HISTORY: Weakness. TECHNIQUE: An X-ray image of the chest is obtained in AP projection. COMPARISON: 07/21/2021 CR. FINDINGS: Pulmonary Parenchyma: Lungs are clear bilaterally. No evidence of consolidation, collapse, or focal opacities. No pulmonary nodules are identified. No evidence of pleural effusion or pleural thickening. Heart and Mediastinum: Heart size and shape are normal. No mediastinal widening or masses. No hilar or mediastinal lymphadenopathy. Bony Thorax: Bony thorax appears intact without fractures or deformities. Soft Tissues: Soft tissues overlying the chest wall are unremarkable. IMPRESSION: 1. No acute cardiopulmonary abnormalities are identified. 2. No interval change in comparison with CR on 07/21/2021. Electronically signed by Michelle Nash 04-22-2024 08:31 AM
--- NOTE | 2024-04-22 08:36 | CT Scan Report ---
EXAM: CT Head Without Intravenous Contrast INDICATION: Headache TECHNIQUE: Axial computed tomography images of the head/brain without intravenous contrast. Sagittal and/or coronal reformats are provided. Sagittal and coronal reformatted images were created and reviewed. This CT exam was performed using one or more of the following dose reduction techniques: automated exposure control, adjustment of the mA and/or kV according to patient size, and/or use of iterative reconstruction technique. COMPARISON: 07/21/2021 FINDINGS: Limitations: None. Brain and extra-axial spaces: No abnormality noted. No hemorrhage. No significant white matter disease. No edema. No ventriculomegaly. Bones/joints: No acute changes. Soft tissues: No significant abnormality noted. Vasculature: No acute abnormality noted. Sinuses: No layering fluid in the visualized portions of the paranasal sinuses. Mastoid air cells: No mastoid effusion. Orbits: No significant abnormality noted. IMPRESSION: No abnormality noted. ACT 112: Negative or not required by law. Electronically signed by Danna Pinto 04-22-2024 08:36 AM
[2024-04-22 08:38] LABS: Basophils # (auto) 0.05 K/uL (0.00-0.20); Basophils % (auto) 0.4 %; Dohle Bodies 2+; Eosinophils # (auto) 0.11 K/uL (0.00-0.50); Eosinophils % (auto) 0.9 %; Hematocrit (blood only) 40.2 % (42.0-52.0); Hemoglobin 14.3 g/dl (14.0-18.0); Immature Granulocytes # (auto) 0.15 K/uL (0.01-0.20); Immature Granulocytes % (auto) 1.2 %; Lymphocytes % (auto) 4.8 %; Mean Corpuscular Hgb Conc 35.6 g/dL (32.0-36.0); Mean Corpuscular Volume 81.5 fL (80.0-100.0); Mean Platelet Volume 11.5 fL (9.4-12.4); Neutrophils # (auto) 10.55 K/uL (1.40-6.50); Neutrophils % (auto) 84.7 %; Platelet Count 71 K/uL (130-400); Platelet Estimate Decreased (Normal); RDW Coefficient of Variation 12.9 % (11.5-14.5); RDW Standard Deviation 38.2 fL (36.4-46.3); Red Blood Count 4.93 M/uL (4.70-6.10); Toxic Granulation 1+; Toxic Vacuolation 3+; White Blood Count 12.46 K/ul (4.8-10.8)
[2024-04-22 08:42] LABS: Albumin Globulin Ratio 1.1 (0.9-2); BUN Creatinine Ratio 16.7 (10-20); Bilirubin,Total 6.1 mg/dl (0.2-1.0); Calcium 8.3 mg/dl (8.6-10.3); Creatinine Clr Calc Pharmacy 25.7 ml/min; Globulin 2.7 gm/dl (2.5-4.0); Magnesium 1.8 mg/dl (1.7-2.4); Potassium 3.2 mmol/L (3.5-5.1); Total Protein 5.7 gm/dl (6.0-8.3)
[2024-04-22 08:47] LABS: INR 1.1 (0.9-1.1); Prothrombin Time 11.4 Seconds (9.0-12.0)
[2024-04-22 08:48] LABS: Troponin I High Sensitivity 4.9 pg/ml (0-20)
[2024-04-22 08:57] LABS: Thyroid Stimulating Hormone 1.855 uIu/ml (0.300-4.500)
[2024-04-22 09:06] LABS: Adenovirus PCR Not Detected (NotDetected); Bordetella parapertussis PCR Not Detected (NotDetected); Bordetella pertussis PCR Not Detected (NotDetected); Chlamydia pneumoniae PCR Not Detected (NotDetected); Coronavirus 229E PCR Not Detected (NotDetected); Coronavirus CoV-2 (COVID19)PCR Not Detected (NotDetected); Coronavirus HKU1 PCR Not Detected (NotDetected); Coronavirus NL63 PCR Not Detected (NotDetected); Coronavirus OC43PCR Not Detected (NotDetected); Human Metapneumovirus PCR Not Detected (NotDetected); Influenza A PCR Not Detected (NotDetected); Influenza B PCR Not Detected (NotDetected); Mycoplasma pneumoniae PCR Not Detected (NotDetected); Parainfluenza Virus 1 PCR Not Detected (NotDetected); Parainfluenza Virus 2 PCR Not Detected (NotDetected); Parainfluenza Virus 3 PCR Not Detected (NotDetected); Parainfluenza Virus 4 PCR Not Detected (NotDetected); Respiratory Syncytial VirusPCR Not Detected (NotDetected); Rhinovirus/Enterovirus PCR Not Detected (NotDetected)
[2024-04-22] MEDS: POTASSIUM CHLORIDE CRTAB 20 MEQ TABCR PO STA (09:17)
[2024-04-22 09:28] LABS: Phosphorus 3.2 mg/dl (2.5-4.9)
[2024-04-22 09:34] LABS: Appearance Urine Cloudy (Clear); Bilirubin Urine 2+ (Negative); Blood Urine Trace (Negative); Color Urine Dark Yellow; Epithelial Cell Urine Auto >20 /hpf (0-2); Glucose Urine UA Negative (Negative); Ketones Urine Trace (Negative); Leukocyte Esterase Urine Trace (Negative); Nitrite Urine Positive (Negative); Protein Urine 1+ (Negative); Specific Gravity Urine 1.019 (1.000-1.030); Urobilinogen Urine Positive (Negative); WBC Urine Automated 0-5 /hpf (0-5)
[2024-04-22 09:36] LABS: Bacteria Urine Automated 2+ (None Seen)
[2024-04-22 09:38] LABS: Granular Casts Urine Present /lpf (None Prsent)
--- NOTE | 2024-04-22 09:54 | Emergency Department Note ---
ED Visit Note Physician Evaluation Note: Patient was seen in conjunction with the midlevel provider. Please see the midlevel provider note for full details of the patient's visit. I have personally evaluated and examined this patient. Patient presented to the ED with generalized weakness, fatigue, headache, and diminished appetite. On my assessment of the patient he is alert and hemodynamically stable. He does not have any abdominal tenderness on my exam. He does have some mild jaundice of the skin. His lab work here shows evidence of thrombocytopenia, elevated bilirubin at 6.1, as well as chronically elevated alkaline phosphatase. He has an acute kidney injury with creatinine 3.05. Patient was given IV fluids. His urinalysis shows evidence of infection therefore blood cultures were ordered and the patient was treated with IV antibiotics. I did discuss the patient's presentation with on-call GI, Dr. Muir, he recommended the patient be transferred to [facility] in [place] for further management as he was concerned that on CT imaging there is a nonspecific lesion in the liver that could correlate with the recent biopsy site. He stated given the patient's elevated bilirubin he was concerned that he might have an area bleeding or possibly abscess in the area of concern on CT imaging. We cannot obtain CT imaging with contrast secondary to the patient's renal failure. At the request of the hospitalist service and the GI service here, I did reach out to gastroenterology at [facility], Dr. Son. At this time he recommends the patient be admitted at our facility as he states there would be no need for an acute/emergent intervention on the part of gastroenterology at a tertiary care center. He recommends repeat H&H in 6 hours and states if the patient's hemoglobin is dropping significantly or if his bilirubin is up- trending significantly he could then be transferred for further management. He states the right upper quadrant ultrasound could be obtained since we cannot obtain CT imaging of the abdomen pelvis with contrast. I then discussed my conversation with Dr. Son with the admitting hospitalist, Dr. Colon (via tiget text) and the patient will be admitted to the medicine service at this facility for further care. I also did inform Dr. Corea of gastroenterology about my conversation with Dr. Son, and he is aware that the patient will be admitted at this facility for further management at this time. Patient is otherwise hemodynamically stable here in the ED, he is in agreement to this plan and he was placed for admission in stable condition. I agree with assessment and plan of Artur Houston PA-C. Jd Brink, DO Emergency Medicine .
--- NOTE | 2024-04-22 09:55 | History & Physical Report ---
Date of Service April 22, 2024 Assessment & Plan (1) Hyperbilirubinemia: Plan: Pt presents w/ weakness, chills, has hx of liver biopsy 04/11/2024 Liver biopsy done by Dr. Kerns ([facility]), pt follows w/ [facility] assistant credit manager as well Liver biopsy c/w fatty liver, no other concerning pathology Current Tbili elevated at 6.1, Tbili in March 2024 1 (normal) Pt unaware of fever, says they don't have a thermometer at home WBC 12.5K. Pt tachycardic in ED. ESR and CRP also elevated ? poss. sepsis blood cultures ordered - pending UA and Ucultx ordered, UA w/ nitrites and Rocephin was ordered in ED Will start empiric abx zosyn + daptomycin for now (will avoid vancomycin for now d/t KATHARINA) Follow cultures CT abdomen / pelvis w/ liver lesion - discussed w/ GI and also discussed possible transfer Pt to be admitted to medicine at [facility] for now, will obtain US liver - as recommended by [facility] GI H&H q6 Hrs, Tbili monitoring, and holding Eliquis - as recommended by [facility] consulted and discussed w/ Dr. Corea (2) KATHARINA (acute kidney injury): Plan: Current Cr 3, BUN 51 previous Cr 1 in March 2024 per outpt records Pt received IVF in ED, will cont. Avoid contrast/ nephrotoxic agents, hold lisinopril Monitor BMP Nephrology consulted (3) Thrombocytopenia: Plan: Plt 71 in ED - previously normal plt count in 240s per outpt chart review - likely secondary to underlying illness/ poss. sepsis? - will obtain peripheral smear - cont. to monitor plt count - may need hematology consult if without improvement Chronic conditions: PAfib - ecg in ED c/w sinus rhythm - hold Eliquis as discussed with GI at [facility] [place] - cont. metoprolol HTN - on lisinopril and amlodipine, will hold for now d/t KATHARINA and lower BP - cont. to monitor BP GERD, Joaquin's esophagus - cont. home PPI DVT ppx : SCDs (home eliquis on hold) History of Present Illness Chief Complaint: weakness, chills s/p liver biopsy Primary Care Provider: Xin Floyd, DO 64 M w/ hx of HTN, HLD, pAfib, GERD, Joaquin's esophagus, BPH and hx of elevated Alk Phos level who presents with chills, weakness, feeling sick since having liver biopsy on 04/11/2024. Liver biopsy was obtained due to elevated Alk phos levels. Biopsy showed fatty liver but no other concerning pathology. Pt has hx of cholecystectomy in 11/2023. Alk phos level in March per outpt chart review was 191, also Tbili was 1 and Creatinine 1. Last CBC noted per outpt chart review - 10/2023 - hgb 16, WBC 8.6K, Plt 234. He presents in ED with above symptoms and also some abdominal cramping on right side. No abdominal images obtained initially - discussed w/ ED provider to obtain CT abd/pelvis. Will have to do w/o contrast as he has KATHARINA, with creatinine of 3 , BUN 51 (compared to Cr of 1 from month ago). His Tbili is 6.1. His plt count is 71. WBC 12.5K. His Alk phos today is 198. Currently pt is lying in bed in [facility], his is present at the bedside. Abdomen soft, but somewhat tender in right upper quadrant. Reports having severe chills, but unaware of fever as they don't have a thermometer at home (per ). also reports having pale stools. He is alert and oriented and able to provide history. I updated the pt that I discussed w/ GI Dr. Corea (who also reviewed labs and CT abd) and would recommend possible transfer. I was then updated by ED provider - who contacted [facility] regarding transfer that pt is not accepted at this time, recommend monitoring H&H and bili, US liver. Hold Eliquis. Allergies Allergy/AdvReac Type Severity Reaction Status Date / Time No Known Allergies Allergy Verified 04/22/24 09:18 Home Medications Medication Instructions Recorded Confirmed Type amlodipine 5 mg tablet 5 mg PO HS 11/30/23 04/22/24 History apixaban 5 mg tablet (Eliquis) 5 mg PO BID 11/30/23 04/22/24 History atorvastatin 10 mg tablet 10 mg PO QAM 11/30/23 04/22/24 History famotidine 20 mg tablet 20 mg PO HS 11/30/23 04/22/24 History lisinopril 10 mg tablet 10 mg PO QAM 11/30/23 04/22/24 History metoprolol succinate 50 mg 50 mg PO HS 11/30/23 04/22/24 History tablet,extended release 24 hr pantoprazole 20 mg tablet,delayed 20 mg PO BID 11/30/23 04/22/24 History release Past Med/Surg History Problem List (Updated 04/22/24 @ 11:32 by Rufus Colon MD) Thrombocytopenia KATHARINA (acute kidney injury) Cholelithiasis Hyperbilirubinemia (Acute) Body aches (Acute) 09/08/14 Cluster headache (Chronic) 09/08/14 Hypertension (Chronic) H/O diastolic dysfunction (Chronic) Dyslipidemia (Chronic) Medical History (Updated 04/22/24 @ 11:32 by Rufus Colon MD) Paroxysmal atrial fibrillation Hx of vertigo Barretts esophagus Osteoarthritis mild neck arthritis Hx of basal cell carcinoma On anticoagulant therapy H/O diastolic dysfunction (2003) Hyperlipidemia Hypertension History of COVID-19 ~ - mild symptoms Surgical History (Updated 04/22/24 @ 12:06 by Rufus Colon MD) Status post cholecystectomy History of appendectomy History of colonoscopy History of esophagogastroduodenoscopy (EGD) H/O basal cell carcinoma excision from the neck area Family History Other No family history of adverse response to anesthesia Social History Smoking Status: Never smoker Tobacco Type: Cigarettes Second Hand Exposure: No; Do You Dip or Chew Tobacco: No; Hx Alcohol Use: Yes Hx Substance Use: No Preferred Language: Italian Communication Ability: Effective Assessment Clinician Required: No Beliefs That Will Affect Care: None Current Living Situation: Spouse Feels Safe at Home: Yes Assistive Devices: Glasses Review of Systems Review of Systems: All systems reviewed & are unremarkable except as noted in Subjective Physical Exam Constitutional: WD/WN, vitals as above Eyes: PERRL, conjunctivae normal, anicteric sclerae Neck: normal visual inspection Respiratory: normal respiratory effort, lungs clear to auscultation Cardiovascular: RRR, no murmur, no edema Chest (Breasts): Chest: normal inspection of chest Gastrointestinal (Abdomen): soft, tender at RUQ Musculoskeletal: Head/Neck/Chest: normocephalic, head atraumatic and neck supple Skin: warm, + jaundice Neurologic: PERRL, EOMI, accommodation nl, no face palsy, no dysarthria Psychiatric: A+Ox3, euthymic affect Results & Data Results & Data Vital Signs (Past 12 Hours) Vital Signs Temp Pulse Pulse Resp BP BP Pulse Ox 04/22/24 09:03 87 16 112/67 98 04/22/24 08:30 88 16 105/65 97 04/22/24 08:08 97 H 12 97 04/22/24 08:08 97 H 12 107/62 97 04/22/24 07:57 97 H 16 107/62 97 04/22/24 07:37 107 H 04/22/24 07:15 36.4 C L 123 H 18 100/66 99 O2 Del Method 04/22/24 09:03 Room Air 04/22/24 08:30 Room Air 04/22/24 08:08 Room Air 04/22/24 08:08 Room Air 04/22/24 07:57 Room Air 04/22/24 07:37 04/22/24 07:15 Room Air Laboratory Results 04/22/24 Range/Units 07:40 WBC 12.46 H (4.8-10.8) K/ul RBC 4.93 (4.70-6.10) M/uL Hgb 14.3 (14.0-18.0) g/dl Hct 40.2 L (42.0-52.0) % MCV 81.5 (80.0-100.0) fL MCH 29.0 (25.0-34.0) pg MCHC 35.6 (32.0-36.0) g/dL RDW Std Deviation 38.2 (36.4-46.3) fL RDW Coeff of Conrad 12.9 (11.5-14.5) % Plt Count 71 L (130-400) K/uL MPV 11.5 (9.4-12.4) fL Immature Gran % (Auto) 1.2 % Neut % (Auto) 84.7 % Lymph % (Auto) 4.8 % [place] % (Auto) 8.0 % Eos % (Auto) 0.9 % Baso % (Auto) 0.4 % Neut # (Auto) 10.55 H (1.40-6.50) K/uL Lymph # (Auto) 0.60 L (1.20-3.40) K/uL [place] # (Auto) 1.00 H (0.11-0.59) K/uL Eos # (Auto) 0.11 (0.00-0.50) K/uL Baso # (Auto) 0.05 (0.00-0.20) K/uL Immature Gran # (Auto) 0.15 (0.01-0.20) K/uL Toxic Granulation 1+ Toxic Vacuolation 3+ Dohle Bodies 2+ Platelet Estimate Decreased L (Normal) ESR 60 H (0-20) mm/hr PT 11.4 (9.0-12.0) Seconds INR 1.1 (0.9-1.1) Sodium 134 L (136-145) mmol/L Potassium 3.2 L (3.5-5.1) mmol/L Chloride 96 L (98-107) mmol/L Carbon Dioxide 26 (21-32) mmol/L Anion Gap 12 H (3-11) BUN 51 H (6-23) mg/dl Creatinine 3.05 H (0.6-1.4) mg/dl Est Cr Clr Drug Dosing 25.7 ml/min eGFR 21.91 BUN/Creatinine Ratio 16.7 (10-20) Glucose 98 (70-99(Fasting)) mg/dl Calcium 8.3 L (8.6-10.3) mg/dl Phosphorus 3.2 (2.5-4.9) mg/dl Magnesium 1.8 (1.7-2.4) mg/dl Total Bilirubin 6.1 H (0.2-1.0) mg/dl AST 39 (13-39) U/L ALT 27 (7-52) U/L Alkaline Phosphatase 198 H (34-104) U/L Total Creatine Kinase 31 (30-223) U/L Troponin I High Sens 4.9 (0-20) pg/ml Total Protein 5.7 L (6.0-8.3) gm/dl Albumin 3.0 L (3.4-5.0) gm/dl Globulin 2.7 (2.5-4.0) gm/dl Albumin/Globulin Ratio 1.1 (0.9-2) TSH 1.855 (0.300-4.500) uIu/ml Urine Color Dark Yellow Urine Appearance Cloudy A (Clear) Urine pH 5.0 (4.5-7.5) Ur Specific [place] 1.019 (1.000-1.030) Urine Protein 1+ H (Negative) Urine Glucose (UA) Negative (Negative) Urine Ketones Trace H (Negative) Urine Blood Trace H (Negative) Urine Nitrite Positive A (Negative) Urine Bilirubin 2+ H (Negative) Urine Urobilinogen Positive H (Negative) Ur Leukocyte Esterase Trace H (Negative) Urine WBC (Auto) 0-5 (0-5) /hpf Urine RBC (Auto) 6-10 H (0-2) /hpf U Hyaline Cast (Auto) 3-5 H (0-2) /lpf U Epithel Cells (Auto) >20 H (0-2) /hpf Urine Bacteria (Auto) 2+ H (None Seen) Granular Casts Present A (None Prsent) /lpf Adenovirus (PCR) Not Detected (NotDetected) B. pertussis DNA (PCR) Not Detected (NotDetected) B.parapertussis DNA PCR Not Detected (NotDetected) C. pneumoniae DNA (PCR) Not Detected (NotDetected) Coronavirus OC43 (PCR) Not Detected (NotDetected) Coronavirus HKU1 (PCR) Not Detected (NotDetected) Coronavirus 229E (PCR) Not Detected (NotDetected) SARS-CoV-2 (PCR) Not Detected (NotDetected) Coronavirus NL63 (PCR) Not Detected (NotDetected) Monoscreen Negative (Negative) Human Metapneumovir PCR Not Detected (NotDetected) Influenza Type A (PCR) Not Detected (NotDetected) Influenza Type B (PCR) Not Detected (NotDetected) M. pneumoniae (PCR) Not Detected (NotDetected) Parainfluenza 1 (PCR) Not Detected (NotDetected) Parainfluenza 2 (PCR) Not Detected (NotDetected) Parainfluenza 3 (PCR) Not Detected (NotDetected) Parainfluenza 4 (PCR) Not Detected (NotDetected) RSV (PCR) Not Detected (NotDetected) Entero/Rhino (PCR) Not Detected (NotDetected) Diagnostic Findings CT head FINDINGS: Limitations: None. Brain and extra-axial spaces: No abnormality noted. No hemorrhage. No significant white matter disease. No edema. No ventriculomegaly. Bones/joints: No acute changes. Soft tissues: No significant abnormality noted. Vasculature: No acute abnormality noted. Sinuses: No layering fluid in the visualized portions of the paranasal sinuses. Mastoid air cells: No mastoid effusion. Orbits: No significant abnormality noted. IMPRESSION: No abnormality noted. CXR FINDINGS: Pulmonary Parenchyma: Lungs are clear bilaterally. No evidence of consolidation, collapse, or focal opacities. No pulmonary nodules are identified. No evidence of pleural effusion or pleural thickening. Heart and Mediastinum: Heart size and shape are normal. No mediastinal widening or masses. No hilar or mediastinal lymphadenopathy. Bony Thorax: Bony thorax appears intact without fractures or deformities. Soft Tissues: Soft tissues overlying the chest wall are unremarkable. IMPRESSION: 1. No acute cardiopulmonary abnormalities are identified. 2. No interval change in comparison with CR on 07/21/2021. Liver biopsy 04/11/2024 Per outpt medical record review - [facility] Final Diagnosis A. Liver, Right lobe, biopsy: Benign liver with mild steatosis and foci of mild spotty lobular inflammation. No specific feature of bile duct injury was identified. Minimal/trace iron deposition focally in scattered a few hepatocytes, much less than grade 1 of 4. No fibrosis.Note: Tissue section of the liver reveals benign liver parenchyma, in which there is mild steatosis about 10% fat, mixed macro and microvesicular patterns There is minimal portal inflammation and no interface inflammation. The portal arteriole/bile duct pairings are present in normal pattern. No specific feature of bile duct injury such as portal granuloma, florid bile duct lesion or periductal fibrosis was identified. The lobules reveals occasional foci of spotty lobular inflammation. No sinusoidal dilatation or distinct zone 3 hepatocellular necrosis was observed. Trichrome and reticulin stains reveals no significant fibrosis. PAS with diastase demonstrates no globules associated with alpha-1 antitrypsin disease. There are minimal/trace granular deposits by iron stain in scattered a few hepatocytes.The over histologic findings are consistent with fatty liver disease secondary to metabolic/toxic type injury which may also need clinical correlation to exclude component of medication induced mild liver injury. CT abdomen/pelvis FINDINGS: Limitations: None. Lung bases: No abnormality noted. Pleural space: No visualized pleural effusion or pneumothorax. Heart: Mild cardiomegaly. No pericardial effusion. Mediastinum: No abnormality noted. ABDOMEN: Liver: There is an irregular, poorly defined hypodense mass in the right hepatic lobe measuring approximately 4.2 x 2.7 x 3.8 cm. There is no associated hemorrhage or gas. The liver otherwise appears normal. Gallbladder and bile ducts: Cholecystectomy. No ductal dilation or stone noted. Pancreas: No pancreatic mass, calcification, inflammation or ductal dilation noted. Spleen: The spleen is enlarged to approximately 13.6 cm long. Adrenals: No significant abnormality noted. Kidneys and ureters: Simple right renal cyst/s. No simple cyst follow-up necessary. Left kidney appears normal. No renal stone, hydronephrosis or perinephric fluid. The left kidney appears normal. Stomach and bowel: Hyperdense material in the stomach consistent with ingested contents. PELVIS: Appendix: No findings to suggest acute appendicitis. Bladder: Appears normal for the degree of filling. No stones or inflammation. No large mass. Masses may not be detected in the absence of opacification. Reproductive: No abnormalities noted. ABDOMEN and PELVIS: Intraperitoneal space: No free air. No significant fluid collection. Bones/joints: No acute changes. Soft tissues: Umbilical hernia containing fat. Vasculature: No abdominal aortic aneurysm. Lymph nodes: No pathologically enlarged lymph nodes. IMPRESSION: 1. Ill-defined hypodensity in the right hepatic lobe may reflect the area that was biopsied. No evidence of hemorrhage. 2. Splenomegaly.
[2024-04-22] MEDS: HYDROmorphone INJ 0.5 MG/0.5 ML SYR IV STA (10:13)
--- NOTE | 2024-04-22 10:26 | CT Scan Report ---
EXAM: CT Abdomen and Pelvis Without Intravenous Contrast INDICATION: Liver biopsy. Acute kidney insufficiency. TECHNIQUE: Axial computed tomography images of the abdomen and pelvis without intravenous contrast. Sagittal and coronal reformatted images were created and reviewed. This CT exam was performed using one or more of the following dose reduction techniques: automated exposure control, adjustment of the mA and/or kV according to patient size, and/or use of iterative reconstruction technique. COMPARISON: Right upper quadrant ultrasound 09/08/2014 FINDINGS: Limitations: None. Lung bases: No abnormality noted. Pleural space: No visualized pleural effusion or pneumothorax. Heart: Mild cardiomegaly. No pericardial effusion. Mediastinum: No abnormality noted. ABDOMEN: Liver: There is an irregular, poorly defined hypodense mass in the right hepatic lobe measuring approximately 4.2 x 2.7 x 3.8 cm. There is no associated hemorrhage or gas. The liver otherwise appears normal. Gallbladder and bile ducts: Cholecystectomy. No ductal dilation or stone noted. Pancreas: No pancreatic mass, calcification, inflammation or ductal dilation noted. Spleen: The spleen is enlarged to approximately 13.6 cm long. Adrenals: No significant abnormality noted. Kidneys and ureters: Simple right renal cyst/s. No simple cyst follow-up necessary. Left kidney appears normal. No renal stone, hydronephrosis or perinephric fluid. The left kidney appears normal. Stomach and bowel: Hyperdense material in the stomach consistent with ingested contents. PELVIS: Appendix: No findings to suggest acute appendicitis. Bladder: Appears normal for the degree of filling. No stones or inflammation. No large mass. Masses may not be detected in the absence of opacification. Reproductive: No abnormalities noted. ABDOMEN and PELVIS: Intraperitoneal space: No free air. No significant fluid collection. Bones/joints: No acute changes. Soft tissues: Umbilical hernia containing fat. Vasculature: No abdominal aortic aneurysm. Lymph nodes: No pathologically enlarged lymph nodes. IMPRESSION: 1. Ill-defined hypodensity in the right hepatic lobe may reflect the area that was biopsied. No evidence of hemorrhage. 2. Splenomegaly. ACT 112: Negative or not required by law. Electronically signed by Danna Pinto 04-22-2024 10:25 AM
[2024-04-22] MEDS: cefTRIAXone SODIUM 2,000 MG/50 ML BAG IV STA (10:46)
[2024-04-22] MEDS: MAGNESIUM OXIDE 400 MG TAB PO STA (12:49)
[2024-04-22] MEDS: PIPERACILLIN/TAZOBACTAM 4.5 GM/100 ML BAG IV STA (12:49)
[2024-04-22] MEDS: DAPTOmycin 450 MG in SYRINGE 0 ML IV STA (14:00)
[2024-04-22 14:59] LABS: Mean Corpuscular Hemoglobin 28.8 pg (25.0-34.0); Mean Corpuscular Hgb Conc 35.1 g/dL (32.0-36.0); Mean Corpuscular Volume 81.9 fL (80.0-100.0); Mean Platelet Volume 11.8 fL (9.4-12.4); Platelet Count 72 K/uL (130-400); RDW Standard Deviation 38.9 fL (36.4-46.3); Red Blood Count 4.52 M/uL (4.70-6.10); White Blood Count 11.15 K/ul (4.8-10.8)
[2024-04-22 15:16] LABS: Albumin Globulin Ratio 1.1 (0.9-2); Albumin Level 2.8 gm/dl (3.4-5.0); BUN Creatinine Ratio 18.5 (10-20); Bilirubin Direct 3.7 mg/dl (0-0.2); Bilirubin,Total 5.3 mg/dl (0.2-1.0); Calcium 7.9 mg/dl (8.6-10.3); Creatinine Clr Calc Pharmacy 27.3 ml/min; Globulin 2.5 gm/dl (2.5-4.0); Potassium 3.4 mmol/L (3.5-5.1); Total Protein 5.3 gm/dl (6.0-8.3)
--- NOTE | 2024-04-22 15:42 | Nephrology Consultation ---
Date of Consultation April 22, 2024 Assessment & Plan (1) KATHARINA (acute kidney injury): Baseline creat 1 as of so current Creat of 3 is definitely KATHARINA. Urine sediment is very active--can happen with ATN or also UTI. Etiology is pre renal type and/or Some degree of ATN. He was on Lisinopril and also taking NSAIDS and Likely had Low BP with very poor oral intake. he lost about 10 lbs in 1 week. So this combination of meds/Low BP/Poor PO intake likely caused the KATHARINA. Already ruled out hydronephrosis by CT. NO need of renal US however good to see creat came down from 3 to 2.7 within 6 hrs. Associated with mild hyponatremia and hypokalemia. Continue NS for now. Avoid nephrotoxic drugs and agents. No NSAIDS, Diuretics for now. Hold Lisinopril Daily CBC and renal panel. For now will assume low PLT from Sepsis. But if renal function worsens and PLT worsens will need hematology input also. repeat UA and also do prot/creat tomorrow (2) Urinary tract infection: based on UA findings. Pending urine C/s. Currently on Dapto + Zosyn which can be continued for now pending urine C/s. (3) Bilirubinemia: Unclear etiology. Good to see Bilirubin dropped from 6 to 5 on repeat test though. Plan Also updated . Time spent 62 Mins. History of Present Illness Reason for Consultation: KATHARINA Attending Physician: Rufus Colon MD History of Present Illness 64/M with Normal creat at baseline of 1 as of . Also has HTN, HLD, pAfib, GERD, Joaquin's esophagus, BPH and h/o elevated Alk Phos level who presented to ED earlier today with chills, weakness, feeling sick since having liver biopsy on 04/11/2024. Liver biopsy was obtained due to elevated Alk phos levels and showed fatty liver but no other concerning pathology. Pt has hx of cholecystectomy in 11/2023. Alk phos level in March was 191, Tbili was 1 and Creatinine 1. Last CBC - 10/2023 - hgb 16, WBC 8.6K, Plt 234. He presented in ED with above symptoms and also some abdominal cramping on right side. No significant findings on the CT abd/pelvis--liver or in kidney. Labs done today showed KATHARINA, with creatinine of 3 , BUN 51. Also His Tbili 6.1 from normal a month ago. His plt count is 71 which was normal 1 month ago. [facility]--GI said to transfer but then [facility] [place] did not [place] transfer and then recommended monitoring H&H and bili, US liver. Hold Eliquis. Since admission got some iv fluid and repeat labs about 6hrs later shows slightly better creat and Bilirubin and PLT stable. At home was on Lisinopril and was also taking some Ibuprofen. Vital signs are acceptable currently. On Daptomicin + Zosyn for Sepsis with unclear source currently. Urine is very active and culture is pending. Ros--see HPI. 12 Systems otherwise negative Physical Exam Constitutional: Awake and alert. No resp Distress HEENT Slight icterus present Neck: Supple. No JVD Respiratory: normal respiratory effort, lungs clear to auscultation Cardiovascular: RRR, no murmur, no edema Chest (Breasts): Chest: normal inspection of chest Gastrointestinal (Abdomen): soft, tender at RUQ Musculoskeletal: Head/Neck/Chest: normocephalic, head atraumatic and neck supple Skin: No rash Neurologic: PERRL, Normal speech. Awake and alert. Not confused. Psychiatric: A+Ox3, euthymic affect Allergies Allergy/AdvReac Type Severity Reaction Status Date / Time No Known Allergies Allergy Verified 04/22/24 09:18 Home Medications Medication Instructions Recorded Confirmed Type amlodipine 5 mg tablet 5 mg PO HS 11/30/23 04/22/24 History apixaban 5 mg tablet (Eliquis) 5 mg PO BID 11/30/23 04/22/24 History atorvastatin 10 mg tablet 10 mg PO QAM 11/30/23 04/22/24 History famotidine 20 mg tablet 20 mg PO HS 11/30/23 04/22/24 History lisinopril 10 mg tablet 10 mg PO QAM 11/30/23 04/22/24 History metoprolol succinate 50 mg 50 mg PO HS 11/30/23 04/22/24 History tablet,extended release 24 hr pantoprazole 20 mg tablet,delayed 20 mg PO BID 11/30/23 04/22/24 History release Patient History Medical History Paroxysmal atrial fibrillation Hx of vertigo Barretts esophagus Osteoarthritis mild neck arthritis Hx of basal cell carcinoma On anticoagulant therapy H/O diastolic dysfunction (2003) Hyperlipidemia Hypertension History of COVID-19 ~ - mild symptoms Surgical History Status post cholecystectomy History of appendectomy History of colonoscopy History of esophagogastroduodenoscopy (EGD) H/O basal cell carcinoma excision from the neck area Family History Other No family history of adverse response to anesthesia Social History Smoking Status: Former smoker Tobacco Type: Cigarettes Cigarettes Per Day: Quit 40 years ago; Second Hand Exposure: No; Do You Dip or Chew Tobacco: No; Tobacco Cessation Education Requested by Patient: No Hx Alcohol Use: Yes Alcohol type: beer and hard liquor Hx Substance Use: No Preferred Language: Togolese Communication Ability: Effective Supplier Relationship Director Required: No Beliefs That Will Affect Care: None Current Living Situation: Spouse Other Information That Helps Us Care for You: No Feels Safe at Home: Yes Safety Concerns: Feels Safe At This Time Assistive Devices: Glasses Results & Data Vital Signs (Past 12 Hours) Vital Signs Temp Pulse Pulse Resp BP BP Pulse Ox 04/22/24 14:03 74 16 115/69 95 04/22/24 13:33 74 16 120/67 93 04/22/24 13:00 118/66 04/22/24 12:51 74 14 95 04/22/24 12:32 96 04/22/24 12:30 122/72 04/22/24 12:24 81 22 94 04/22/24 12:18 79 20 94 04/22/24 12:00 122/68 04/22/24 11:45 79 14 95 04/22/24 11:30 118/72 04/22/24 10:45 78 16 115/66 94 04/22/24 10:12 79 16 99 04/22/24 10:00 115/71 04/22/24 09:03 87 16 112/67 98 04/22/24 08:30 88 16 105/65 97 04/22/24 08:08 97 H 12 97 04/22/24 08:08 97 H 12 107/62 97 02/22/25 07:57 97 H 16 107/62 97 04/22/24 07:37 107 H 04/22/24 07:15 36.4 C L 123 H 18 100/66 99 O2 Del Method 04/22/24 14:03 Room Air 04/22/24 13:33 Room Air 04/22/24 13:00 04/22/24 12:51 Room Air 04/22/24 12:32 Room Air 04/22/24 12:30 04/22/24 12:24 Room Air 04/22/24 12:18 Room Air 04/22/24 12:00 04/22/24 11:45 Room Air 04/22/24 11:30 04/22/24 10:45 Room Air 04/22/24 10:12 Room Air 04/22/24 10:00 04/22/24 09:03 Room Air 04/22/24 08:30 Room Air 04/22/24 08:08 Room Air 04/22/24 08:08 Room Air 04/22/24 07:57 Room Air 04/22/24 07:37 04/22/24 07:15 Room Air
[2024-04-22] MEDS: POTASSIUM CHLORIDE / WTR 10 MEQ/100 ML PLCT IV SCH (16:19)
[2024-04-22 18:20] LABS: Hematocrit (blood only) 35.5 % (42.0-52.0); Hemoglobin 12.4 g/dl (14.0-18.0); Mean Corpuscular Hemoglobin 28.5 pg (25.0-34.0); Mean Corpuscular Hgb Conc 34.9 g/dL (32.0-36.0); Mean Corpuscular Volume 81.6 fL (80.0-100.0); Mean Platelet Volume 11.6 fL (9.4-12.4); Platelet Count 65 K/uL (130-400); RDW Coefficient of Variation 13.1 % (11.5-14.5); RDW Standard Deviation 39.1 fL (36.4-46.3); Red Blood Count 4.35 M/uL (4.70-6.10); White Blood Count 11.93 K/ul (4.8-10.8)
[2024-04-22] MEDS: PIPERACILLIN/TAZOBACTAM 4.5 GM/100 ML BAG IV SCH (18:20)
[2024-04-22 18:34] LABS: Albumin Globulin Ratio 1.1 (0.9-2); Albumin Level 2.8 gm/dl (3.4-5.0); BUN Creatinine Ratio 19.3 (10-20); Bilirubin,Total 4.8 mg/dl (0.2-1.0); Calcium 8.1 mg/dl (8.6-10.3); Globulin 2.5 gm/dl (2.5-4.0); Potassium 3.7 mmol/L (3.5-5.1); Total Protein 5.3 gm/dl (6.0-8.3)
[2024-04-22 20:22] LABS: Appearance Urine Cloudy (Clear); Bacteria Urine Automated None Seen (None Seen); Bilirubin Urine 2+ (Negative); Blood Urine 1+ (Negative); Color Urine Dark Yellow; Epithelial Cell Urine Auto >20 /hpf (0-2); Glucose Urine UA Negative (Negative); Ketones Urine Trace (Negative); Leukocyte Esterase Urine Trace (Negative); Nitrite Urine Positive (Negative); Protein Urine 1+ (Negative); Specific Gravity Urine 1.018 (1.000-1.030); Urobilinogen Urine Positive (Negative); WBC Urine Automated 0-5 /hpf (0-5)
[2024-04-22] MEDS: PANTOprazole 40 MG TAB PO SCH (20:23)
[2024-04-22] MEDS: METOPROLOL SUCC 50MG EXT REL TAB PO SCH (20:23)
[2024-04-22] MEDS: FAMOTIDINE 20 MG TAB PO SCH (20:24)
[2024-04-22 23:45] LABS: Hematocrit (blood only) 35.7 % (42.0-52.0); Hemoglobin 12.4 g/dl (14.0-18.0)
--- NOTE | 2024-04-23 02:04 | Ultrasound Report ---
Exam(s): US LIVER EXAM: US Abdomen Limited, Right Upper Quadrant CLINICAL HISTORY: Reason for exam: abnormal CT scan, s/p biopsy, Tbili elevated. TECHNIQUE: Real-time ultrasound of the right upper quadrant with image documentation. COMPARISON: Right upper quadrant ultrasound on 09/08/2014. CT abdomen/pelvis on 04/22/2024. FINDINGS: Liver: Liver measures 16.0 cm. Increased echogenicity of the liver suggestive of hepatic steatosis. Complex hypoechoic lesion in the right liver measuring 3.2 x 5.0 x 4.1 cm with surrounding color Doppler flow. Small hyperechoic lesions in the right liver measuring up to 7 mm, probably representing hemangiomas. No intrahepatic bile duct dilation. Gallbladder: Prior cholecystectomy. Common bile duct: Unremarkable as visualized. No stones. No dilation. Normal common bile duct measuring 5.2 mm. Pancreas: Visualized portions of the pancreas are grossly unremarkable, but evaluation is limited by overlying bowel gas. Right kidney: No hydronephrosis or stone. Renal cyst measuring up to 2.1 cm. Portal vein: Patent with normal direction of flow. Free fluid: No ascites. IMPRESSION: 1. Hepatic steatosis. 2. Complex hypoechoic lesion in the right liver measuring 3.2 x 5.0 x 4. 1 cm with surrounding color Doppler flow. Metastasis/neoplasm is not excluded. 3. 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 Electronically signed by: Verena Mills M.D. 04/23/24 02:03 AM
[2024-04-23 07:25] LABS: Hemoglobin 11.7 g/dl (14.0-18.0); Mean Corpuscular Hemoglobin 28.2 pg (25.0-34.0); Mean Corpuscular Hgb Conc 34.4 g/dL (32.0-36.0); Mean Corpuscular Volume 81.9 fL (80.0-100.0); Mean Platelet Volume 11.4 fL (9.4-12.4); Platelet Count 78 K/uL (130-400); RDW Coefficient of Variation 13.3 % (11.5-14.5); RDW Standard Deviation 39.9 fL (36.4-46.3); Red Blood Count 4.15 M/uL (4.70-6.10); White Blood Count 10.22 K/ul (4.8-10.8)
[2024-04-23 07:50] LABS: Albumin Globulin Ratio 1.1 (0.9-2); Albumin Level 2.6 gm/dl (3.4-5.0); Bilirubin,Total 3.8 mg/dl (0.2-1.0); Calcium 8.2 mg/dl (8.6-10.3); Creatinine Clr Calc Pharmacy 37.7 ml/min; Globulin 2.4 gm/dl (2.5-4.0); Magnesium 2.3 mg/dl (1.7-2.4); Phosphorus 3.3 mg/dl (2.5-4.9); Potassium 3.4 mmol/L (3.5-5.1)
--- NOTE | 2024-04-23 08:48 | Hospitalist Progress Note ---
Date of Service April 23, 2024 Assessment & Plan (1) Sepsis: Plan Pt is a 64yoM w/ hx of HTN, HLD, pAfib, GERD, Joaquin's esophagus, BPH and who presented with chills, weakness and generalized malaise. Had a recent liver biopsy on 04/11/2024 and also found to have a urinary tract infection. Sepsis Complicated Urinary Tract Infection Pt with leukocytosis, tachycardia on admission, likely urinary infection. Recent procedure as well Recent liver biopsy procedure Respiratory viral panel negative Chest XRAY unremarkable UA suggestive of infection, urine cx pending Blood Cx x 2 sets pending Continue IV Zosyn and Daptomycin Follow Cx and adjust abx as needed Continue to monitor Elevated Liver Enzymes Hx of recent liver biopsy R hepatic Lobe Density Had a recent liver biopsy on 04/11/2024 Liver enzymes significantly elevated-t bili 6.1, direct bili 3.7, AST 39, ALT 27, Alk phos 198 Liver biopsy previously done noting only steatosis CT abd/pelvis noting R hepatic lobe hypodensity that likely correlates to area biopsied, no hemorrhage, noted splenomegaly Liver US noting hepatic steatosis, and a complex hypoechoic lesion in the R liver noting metastasis vs. 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 in the R liver Follows with [facility] [place] [facility]- declined transfer on admission Consulted GI, appreciate further recs Thrombocytopenia Anemia Noted platelet levels of 71K to 78K Likely in setting of sepsis above Peripheral smear consulted Hyponatremia Mild Currently resolved Hypokalemia Replete as needed Acute Kidney Disease Cr 3.05 on admission previous Cr 1 in March 2024 per outpt records Pt received IVF in ED, will continue Avoid contrast/ nephrotoxic agents, hold lisinopril Monitor BMP Nephrology consulted Laryngitis Resp panel negative Chest XRAY unremarkable On abx as above Flonase prn Headache Hx of Migraines Pt with intractable weeklong headache Head CT unremarkable MRI ordered and pending prn Imirtex Consider LP in setting of infection noted above Paroxysmal Atrial fibrillation EKG in ED noting sinus rhythm hold Eliquis as discussed with GI at [facility] [place] cont. metoprolol HTN on lisinopril and amlodipine-currently on hold due to lower BPs On metoprolol as noted above Continue to monitor GERD Joaquin's esophagus cont. home PPI, pepcid Diet: NPO until GI evaluation DVT ppx : SCDs (home eliquis on hold) Dispo: PT/OT for further recs Admission and Anticipated Discharge Date Admission Date: April 22, 2024 Subjective Pt was seen laying in bed. noted laryngitis States has been having a persistent headache, states intractable that no medications seem to help. Discussion with , she does note a Hx of migraines Updated on general course Review of Systems Review of Systems: All systems reviewed & are unremarkable except as noted in Subjective Physical Exam Physical Exam: General: Alert, oriented. No acute distress Skin: No noted rashes or bruises Psych: Appropriate mood and affect HEENT: NC/AT CV: RRR Resp: Breath sounds clear bilaterally, no increased effort of breathing Abdomen:Soft, tender in right quadrants Extremities: No edema in lower extremities bilaterally. Results & Data Results & Data Vital Signs (Past 12 Hours) Vital Signs Temp Pulse Pulse Resp BP Pulse Ox O2 Del Method 04/23/24 08:01 36.7 C 83 18 123/75 93 Room Air 04/23/24 07:27 89 04/23/24 07:17 Room Air 04/23/24 02:34 36.8 C 102 H 19 131/79 95 Room Air 04/22/24 23:00 36.7 C 86 18 118/77 97 Room Air 04/22/24 23:00 78 04/22/24 22:24 Room Air Diagnostic Findings Chest X-Ray 04/22/24 07:45 EXAM: XR chest 1V portable CLINICAL HISTORY: Weakness. TECHNIQUE: An X-ray image of the chest is obtained in AP projection. COMPARISON: 07/21/2021 CR. FINDINGS: Pulmonary Parenchyma: Lungs are clear bilaterally. No evidence of consolidation, collapse, or focal opacities. No pulmonary nodules are identified. No evidence of pleural effusion or pleural thickening. Heart and Mediastinum: Heart size and shape are normal. No mediastinal widening or masses. No hilar or mediastinal lymphadenopathy. Bony Thorax: Bony thorax appears intact without fractures or deformities. Soft Tissues: Soft tissues overlying the chest wall are unremarkable. IMPRESSION: 1. No acute cardiopulmonary abnormalities are identified. 2. No interval change in comparison with CR on 07/21/2021. Electronically signed by Michelle Nash 04-22-2024 08:[address] 04/22/24 07:45 EXAM: CT Head Without Intravenous Contrast INDICATION: Headache TECHNIQUE: Axial computed tomography images of the head/brain without intravenous contrast. Sagittal and/or coronal reformats are provided. Sagittal and coronal reformatted images were created and reviewed. This CT exam was performed using one or more of the following dose reduction techniques: automated exposure control, adjustment of the mA and/or kV according to patient size, and/or use of iterative reconstruction technique. COMPARISON: 07/21/2021 FINDINGS: Limitations: None. Brain and extra-axial spaces: No abnormality noted. No hemorrhage. No significant white matter disease. No edema. No ventriculomegaly. Bones/joints: No acute changes. Soft tissues: No significant abnormality noted. Vasculature: No acute abnormality noted. Sinuses: No layering fluid in the visualized portions of the paranasal sinuses. Mastoid air cells: No mastoid effusion. Orbits: No significant abnormality noted. IMPRESSION: No abnormality noted. ACT 112: Negative or not required by law. Electronically signed by Danna Pinto 04-22-2024 08:36 AM Abdomen/Pelvis CT 04/22/24 09:40 EXAM: CT Abdomen and Pelvis Without Intravenous Contrast INDICATION: Liver biopsy. Acute kidney insufficiency. TECHNIQUE: Axial computed tomography images of the abdomen and pelvis without intravenous contrast. Sagittal and coronal reformatted images were created and reviewed. This CT exam was performed using one or more of the following dose reduction techniques: automated exposure control, adjustment of the mA and/or kV according to patient size, and/or use of iterative reconstruction technique. COMPARISON: Right upper quadrant ultrasound 09/08/2014 FINDINGS: Limitations: None. Lung bases: No abnormality noted. Pleural space: No visualized pleural effusion or pneumothorax. Heart: Mild cardiomegaly. No pericardial effusion. Mediastinum: No abnormality noted. ABDOMEN: Liver: There is an irregular, poorly defined hypodense mass in the right hepatic lobe measuring approximately 4.2 x 2.7 x 3.8 cm. There is no associated hemorrhage or gas. The liver otherwise appears normal. Gallbladder and bile ducts: Cholecystectomy. No ductal dilation or stone noted. Pancreas: No pancreatic mass, calcification, inflammation or ductal dilation noted. Spleen: The spleen is enlarged to approximately 13.6 cm long. Adrenals: No significant abnormality noted. Kidneys and ureters: Simple right renal cyst/s. No simple cyst follow-up necessary. Left kidney appears normal. No renal stone, hydronephrosis or perinephric fluid. The left kidney appears normal. Stomach and bowel: Hyperdense material in the stomach consistent with ingested contents. PELVIS: Appendix: No findings to suggest acute appendicitis. Bladder: Appears normal for the degree of filling. No stones or inflammation. No large mass. Masses may not be detected in the absence of opacification. Reproductive: No abnormalities noted. ABDOMEN and PELVIS: Intraperitoneal space: No free air. No significant fluid collection. Bones/joints: No acute changes. Soft tissues: Umbilical hernia containing fat. Vasculature: No abdominal aortic aneurysm. Lymph nodes: No pathologically enlarged lymph nodes. IMPRESSION: 1. Ill-defined hypodensity in the right hepatic lobe may reflect the area that was biopsied. No evidence of hemorrhage. 2. Splenomegaly. ACT 112: Negative or not required by law. Electronically signed by Danna Pinto 04-22-2024 10:25 AM Liver Ultrasound 04/22/24 11:22 Exam(s): US LIVER EXAM: US Abdomen Limited, Right Upper Quadrant CLINICAL HISTORY: Reason for exam: abnormal CT scan, s/p biopsy, Tbili elevated. TECHNIQUE: Real-time ultrasound of the right upper quadrant with image documentation. COMPARISON: Right upper quadrant ultrasound on 09/08/2014. CT abdomen/pelvis on 04/22/2024. FINDINGS: Liver: Liver measures 16.0 cm. Increased echogenicity of the liver suggestive of hepatic steatosis. Complex hypoechoic lesion in the right liver measuring 3.2 x 5.0 x 4.1 cm with surrounding color Doppler flow. Small hyperechoic lesions in the right liver measuring up to 7 mm, probably representing hemangiomas. No intrahepatic bile duct dilation. Gallbladder: Prior cholecystectomy. Common bile duct: Unremarkable as visualized. No stones. No dilation. Normal common bile duct measuring 5.2 mm. Pancreas: Visualized portions of the pancreas are grossly unremarkable, but evaluation is limited by overlying bowel gas. Right kidney: No hydronephrosis or stone. Renal cyst measuring up to 2.1 cm. Portal vein: Patent with normal direction of flow. Free fluid: No ascites. IMPRESSION: 1. Hepatic steatosis. 2. Complex hypoechoic lesion in the right liver measuring 3.2 x 5.0 x 4. 1 cm with surrounding color Doppler flow. Metastasis/neoplasm is not excluded. 3. 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 Electronically signed by: Verena Mills M.D. 04/23/24 02:03 AM
[2024-04-23] MEDS: POTASSIUM CHLORIDE CRTAB 20 MEQ TABCR PO STA (09:00)
[2024-04-23] MEDS: MAGNESIUM OXIDE 400 MG TAB PO SCH (09:01)
--- NOTE | 2024-04-23 10:01 | Gastrointestinal Consultation ---
Date of Consultation April 23, 2024 Assessment & Plan (1) Bilirubinemia: Complex problem with multiple issues. The lesion in the liver I suspect is related to his liver biopsy with intrahepatic bleeding and hyperbilirubinemia related to blood in biliary system perhaps. With his fever and sepsis I guess it is possible this is an evolving hepatic abscess although I suspect this is less likely. His blood count has drifted down so I would continue to follow it for now. Would consider repeat imaging of the liver in the next day or so. The liver would not have anything to do with his KATHARINA though. One remote thought is that he did have diarrhea for a number of days. E. coli diarrhea could lead to elevated bilirubin, drop in hemoglobin and renal failure but it doesn't seem to me that his diarrhea was that significant. He also has laryngitis which I can confidently say is not reflux related. Most likely he has a viral illness causing a lot of his symptoms. Will follow History of Present Illness Reason for Consultation: abnormal CT Attending Physician: Mony Rodriguez MD History of Present Illness 64 year old man who had a liver biopsy done on Apr 11 for elevated alkaline phosphatase. He says nobody ever mentioned a "spot" on his liver that they were biopsying. He felt well until five days later when he started feeling poorly. He doesn't know if he developed a fever but he did have shaking chills develop the following week. During this time he had diarrhea every time he would eat. He didn't see blood in his stool and he didn't really have problems unless he ate. He had no abdominal pain unless it was immediately prior to bowel movement. He did have a colonoscopy last year. He has also noted that he has lost his voice during this time. He thinks it is related to reflux but he takes protonix bid for "Joaquin's esophagus". On presentation to hospital he had a CT scan that showed a hypodense lesion in his liver and he has had new onset of jaundice with bilirubin over 6. He also had creatinine of 3 and he has never had any kidney issues before. Allergies Allergy/AdvReac Type Severity Reaction Status Date / Time No Known Allergies Allergy Verified 04/22/24 09:18 Home Medications Medication Instructions Recorded Confirmed Type amlodipine 5 mg tablet 5 mg PO HS 11/30/23 04/22/24 History apixaban 5 mg tablet (Eliquis) 5 mg PO BID 11/30/23 04/22/24 History atorvastatin 10 mg tablet 10 mg PO QAM 11/30/23 04/22/24 History famotidine 20 mg tablet 20 mg PO HS 11/30/23 04/22/24 History lisinopril 10 mg tablet 10 mg PO QAM 11/30/23 04/22/24 History metoprolol succinate 50 mg 50 mg PO HS 11/30/23 04/22/24 History tablet,extended release 24 hr pantoprazole 20 mg tablet,delayed 20 mg PO BID 11/30/23 04/22/24 History release Patient History Medical History Paroxysmal atrial fibrillation Hx of vertigo Barretts esophagus Osteoarthritis mild neck arthritis Hx of basal cell carcinoma On anticoagulant therapy H/O diastolic dysfunction (2003) Hyperlipidemia Hypertension History of COVID-19 ~ - mild symptoms Surgical History Status post cholecystectomy History of appendectomy History of colonoscopy History of esophagogastroduodenoscopy (EGD) H/O basal cell carcinoma excision from the neck area Family History Other No family history of adverse response to anesthesia Social History Smoking Status: Former smoker Tobacco Type: Cigarettes Cigarettes Per Day: Quit 40 years ago; Second Hand Exposure: No; Do You Dip or Chew Tobacco: No; Tobacco Cessation Education Requested by Patient: No Hx Alcohol Use: Yes Alcohol type: beer and hard liquor Hx Substance Use: No Preferred Language: Trinidadian Communication Ability: Effective Diesel [employer] Required: No Beliefs That Will Affect Care: None Current Living Situation: Spouse Other Information That Helps Us Care for You: No Feels Safe at Home: Yes Safety Concerns: Feels Safe At This Time Assistive Devices: Glasses Review of Systems Review of Systems: All systems reviewed & are unremarkable except as noted in HPI & below Physical Exam Constitutional: WD/WN, vitals as above Eyes: sclerae not anicteric Neck: trachea midline, no thyromegaly Respiratory: normal respiratory effort, lungs clear to auscultation Cardiovascular: RRR, no murmur, no edema Gastrointestinal (Abdomen): normal bowel sounds, soft, nontender, no hepatosplenomegaly Results & Data Vital Signs (Past 12 Hours) Vital Signs Temp Pulse Pulse Resp BP Pulse Ox O2 Del Method 04/23/24 08:01 36.7 C 83 18 123/75 93 Room Air 04/23/24 07:27 89 04/23/24 07:17 Room Air 04/23/24 02:34 36.8 C 102 H 19 131/79 95 Room Air 04/22/24 23:00 36.7 C 86 18 118/77 97 Room Air 04/22/24 23:00 78 04/22/24 22:24 Room Air Laboratory Results 04/23/24 04/22/24 04/22/24 Range/Units 06:57 23:25 19:50 WBC 10.22 (4.8-10.8) K/ul RBC 4.15 L (4.70-6.10) M/uL Hgb 11.7 L 12.4 L (14.0-18.0) g/dl Hct 34.0 L 35.7 L (42.0-52.0) % MCV 81.9 (80.0-100.0) fL MCH 28.2 (25.0-34.0) pg MCHC 34.4 (32.0-36.0) g/dL RDW Std Deviation 39.9 (36.4-46.3) fL RDW Coeff of Conrad 13.3 (11.5-14.5) % Plt Count 78 L (130-400) K/uL MPV 11.4 (9.4-12.4) fL Peripher Smr Path Cons Sodium 138 (136-145) mmol/L Potassium 3.4 L (3.5-5.1) mmol/L Chloride 104 (98-107) mmol/L Carbon Dioxide 23 (21-32) mmol/L Anion Gap 11 (3-11) BUN 50 H (6-23) mg/dl Creatinine 2.08 H D (0.6-1.4) mg/dl Est Cr Clr Drug Dosing 37.7 ml/min eGFR 34.68 BUN/Creatinine Ratio 24.0 H (10-20) Glucose 90 (70-99(Fasting)) mg/dl Calcium 8.2 L (8.6-10.3) mg/dl Phosphorus 3.3 (2.5-4.9) mg/dl Magnesium 2.3 (1.7-2.4) mg/dl Total Bilirubin 3.8 H (0.2-1.0) mg/dl Direct Bilirubin (0-0.2) mg/dl AST 45 H (13-39) U/L ALT 32 (7-52) U/L Alkaline Phosphatase 168 H (34-104) U/L C-Reactive Protein (0-0.5) mg/dl Total Protein 5.0 L (6.0-8.3) gm/dl Albumin 2.6 L (3.4-5.0) gm/dl Globulin 2.4 L (2.5-4.0) gm/dl Albumin/Globulin Ratio 1.1 (0.9-2) Urine Color Dark Yellow Urine Appearance Cloudy A (Clear) Urine pH 5.0 (4.5-7.5) Ur Specific [place] 1.018 (1.000-1.030) Urine Protein 1+ H (Negative) Urine Glucose (UA) Negative (Negative) Urine Ketones Trace H (Negative) Urine Blood 1+ H (Negative) Urine Nitrite Positive A (Negative) Urine Bilirubin 2+ H (Negative) Urine Urobilinogen Positive H (Negative) Ur Leukocyte Esterase Trace H (Negative) Urine WBC (Auto) 0-5 (0-5) /hpf Urine RBC (Auto) 11-20 H (0-2) /hpf U Hyaline Cast (Auto) 6-10 H (0-2) /lpf U Epithel Cells (Auto) >20 H (0-2) /hpf Urine Bacteria (Auto) None Seen (None Seen) 04/22/24 04/22/24 04/22/24 Range/Units 17:59 14:26 07:40 WBC 11.93 H 11.15 H (4.8-10.8) K/ul RBC 4.35 L 4.52 L (4.70-6.10) M/uL Hgb 12.4 L 13.0 L (14.0-18.0) g/dl Hct 35.5 L 37.0 L (42.0-52.0) % MCV 81.6 81.9 (80.0-100.0) fL MCH 28.5 28.8 (25.0-34.0) pg MCHC 34.9 35.1 (32.0-36.0) g/dL RDW Std Deviation 39.1 38.9 (36.4-46.3) fL RDW Coeff of Conrad 13.1 13.0 (11.5-14.5) % Plt Count 65 L 72 L (130-400) K/uL MPV 11.6 11.8 (9.4-12.4) fL Peripher Smr Path Cons Pending Sodium 134 L 134 L (136-145) mmol/L Potassium 3.7 3.4 L (3.5-5.1) mmol/L Chloride 100 98 (98-107) mmol/L Carbon Dioxide 26 28 (21-32) mmol/L Anion Gap 8 8 (3-11) BUN 56 H 53 H (6-23) mg/dl Creatinine 2.90 H 2.87 H (0.6-1.4) mg/dl Est Cr Clr Drug Dosing 27.0 27.3 ml/min eGFR 23.28 23.57 BUN/Creatinine Ratio 19.3 18.5 (10-20) Glucose 96 102 H (70-99(Fasting)) mg/dl Calcium 8.1 L 7.9 L (8.6-10.3) mg/dl Phosphorus (2.5-4.9) mg/dl Magnesium (1.7-2.4) mg/dl Total Bilirubin 4.8 H 5.3 H (0.2-1.0) mg/dl Direct Bilirubin 3.7 H (0-0.2) mg/dl AST 32 32 (13-39) U/L ALT 22 24 (7-52) U/L Alkaline Phosphatase 175 H 179 H (34-104) U/L C-Reactive Protein 20.07 H (0-0.5) mg/dl Total Protein 5.3 L 5.3 L (6.0-8.3) gm/dl Albumin 2.8 L 2.8 L (3.4-5.0) gm/dl Globulin 2.5 2.5 (2.5-4.0) gm/dl Albumin/Globulin Ratio 1.1 1.1 (0.9-2) Urine Color Urine Appearance (Clear) Urine pH (4.5-7.5) Ur Specific [place] (1.000-1.030) Urine Protein (Negative) Urine Glucose (UA) (Negative) Urine Ketones (Negative) Urine Blood (Negative) Urine Nitrite (Negative) Urine Bilirubin (Negative) Urine Urobilinogen (Negative) Ur Leukocyte Esterase (Negative) Urine WBC (Auto) (0-5) /hpf Urine RBC (Auto) (0-2) /hpf U Hyaline Cast (Auto) (0-2) /lpf U Epithel Cells (Auto) (0-2) /hpf Urine Bacteria (Auto) (None Seen) Diagnostic Findings Chest X-Ray 04/22/24 07:45 EXAM: XR chest 1V portable CLINICAL HISTORY: Weakness. TECHNIQUE: An X-ray image of the chest is obtained in AP projection. COMPARISON: 07/21/2021 CR. FINDINGS: Pulmonary Parenchyma: Lungs are clear bilaterally. No evidence of consolidation, collapse, or focal opacities. No pulmonary nodules are identified. No evidence of pleural effusion or pleural thickening. Heart and Mediastinum: Heart size and shape are normal. No mediastinal widening or masses. No hilar or mediastinal lymphadenopathy. Bony Thorax: Bony thorax appears intact without fractures or deformities. Soft Tissues: Soft tissues overlying the chest wall are unremarkable. IMPRESSION: 1. No acute cardiopulmonary abnormalities are identified. 2. No interval change in comparison with CR on 07/21/2021. Electronically signed by Michelle Nash 04-22-2024 08:[address] 04/22/24 07:45 EXAM: CT Head Without Intravenous Contrast INDICATION: Headache TECHNIQUE: Axial computed tomography images of the head/brain without intravenous contrast. Sagittal and/or coronal reformats are provided. Sagittal and coronal reformatted images were created and reviewed. This CT exam was performed using one or more of the following dose reduction techniques: automated exposure control, adjustment of the mA and/or kV according to patient size, and/or use of iterative reconstruction technique. COMPARISON: 07/21/2021 FINDINGS: Limitations: None. Brain and extra-axial spaces: No abnormality noted. No hemorrhage. No significant white matter disease. No edema. No ventriculomegaly. Bones/joints: No acute changes. Soft tissues: No significant abnormality noted. Vasculature: No acute abnormality noted. Sinuses: No layering fluid in the visualized portions of the paranasal sinuses. Mastoid air cells: No mastoid effusion. Orbits: No significant abnormality noted. IMPRESSION: No abnormality noted. ACT 112: Negative or not required by law. Electronically signed by Danna Pinto 04-22-2024 08:36 AM Abdomen/Pelvis CT 04/22/24 09:40 EXAM: CT Abdomen and Pelvis Without Intravenous Contrast INDICATION: Liver biopsy. Acute kidney insufficiency. TECHNIQUE: Axial computed tomography images of the abdomen and pelvis without intravenous contrast. Sagittal and coronal reformatted images were created and reviewed. This CT exam was performed using one or more of the following dose reduction techniques: automated exposure control, adjustment of the mA and/or kV according to patient size, and/or use of iterative reconstruction technique. COMPARISON: Right upper quadrant ultrasound 09/08/2014 FINDINGS: Limitations: None. Lung bases: No abnormality noted. Pleural space: No visualized pleural effusion or pneumothorax. Heart: Mild cardiomegaly. No pericardial effusion. Mediastinum: No abnormality noted. ABDOMEN: Liver: There is an irregular, poorly defined hypodense mass in the right hepatic lobe measuring approximately 4.2 x 2.7 x 3.8 cm. There is no associated hemorrhage or gas. The liver otherwise appears normal. Gallbladder and bile ducts: Cholecystectomy. No ductal dilation or stone noted. Pancreas: No pancreatic mass, calcification, inflammation or ductal dilation noted. Spleen: The spleen is enlarged to approximately 13.6 cm long. Adrenals: No significant abnormality noted. Kidneys and ureters: Simple right renal cyst/s. No simple cyst follow-up necessary. Left kidney appears normal. No renal stone, hydronephrosis or perinephric fluid. The left kidney appears normal. Stomach and bowel: Hyperdense material in the stomach consistent with ingested contents. PELVIS: Appendix: No findings to suggest acute appendicitis. Bladder: Appears normal for the degree of filling. No stones or inflammation. No large mass. Masses may not be detected in the absence of opacification. Reproductive: No abnormalities noted. ABDOMEN and PELVIS: Intraperitoneal space: No free air. No significant fluid collection. Bones/joints: No acute changes. Soft tissues: Umbilical hernia containing fat. Vasculature: No abdominal aortic aneurysm. Lymph nodes: No pathologically enlarged lymph nodes. IMPRESSION: 1. Ill-defined hypodensity in the right hepatic lobe may reflect the area that was biopsied. No evidence of hemorrhage. 2. Splenomegaly. ACT 112: Negative or not required by law. Electronically signed by Danna Pinto 04-22-2024 10:25 AM Liver Ultrasound 04/22/24 11:22 Exam(s): US LIVER EXAM: US Abdomen Limited, Right Upper Quadrant CLINICAL HISTORY: Reason for exam: abnormal CT scan, s/p biopsy, Tbili elevated. TECHNIQUE: Real-time ultrasound of the right upper quadrant with image documentation. COMPARISON: Right upper quadrant ultrasound on 09/08/2014. CT abdomen/pelvis on 04/22/2024. FINDINGS: Liver: Liver measures 16.0 cm. Increased echogenicity of the liver suggestive of hepatic steatosis. Complex hypoechoic lesion in the right liver measuring 3.2 x 5.0 x 4.1 cm with surrounding color Doppler flow. Small hyperechoic lesions in the right liver measuring up to 7 mm, probably representing hemangiomas. No intrahepatic bile duct dilation. Gallbladder: Prior cholecystectomy. Common bile duct: Unremarkable as visualized. No stones. No dilation. Normal common bile duct measuring 5.2 mm. Pancreas: Visualized portions of the pancreas are grossly unremarkable, but evaluation is limited by overlying bowel gas. Right kidney: No hydronephrosis or stone. Renal cyst measuring up to 2.1 cm. Portal vein: Patent with normal direction of flow. Free fluid: No ascites. IMPRESSION: 1. Hepatic steatosis. 2. Complex hypoechoic lesion in the right liver measuring 3.2 x 5.0 x 4. 1 cm with surrounding color Doppler flow. Metastasis/neoplasm is not excluded. 3. 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 Electronically signed by: Verena Mills M.D. 04/23/24 02:03 AM
--- NOTE | 2024-04-23 10:16 | Electrocardiogram Report ---
Test Reason : Blood Pressure : */* mmHG Vent. Rate : 97 BPM Atrial Rate : 97 BPM P-R Int : 156 ms QRS Dur : 80 ms QT Int : 358 ms P-R-T Axes : 49 -29 24 degrees QTcB Int : 454 ms Normal sinus rhythm Low voltage QRS Borderline ECG When compared with ECG of 21-Jul-2021 11:43, Vent. rate has increased by 35 bpm Confirmed by Claudio Mcgee ([id number]) on 04/23/2024 10:15:45 AM Referred By: Confirmed By: Claudio Mcgee
--- NOTE | 2024-04-23 10:28 | Communication Note ---
Date of Service: April 23, 2024 Called and discussed with spouse Kim Sarah
[2024-04-23] MEDS ORDERED: SUMAtriptan succinate 25 MG TAB PO PRN (15:41)
--- NOTE | 2024-04-23 15:57 | Nephrology Progress Note ---
Date of Service April 23, 2024 Assessment & Plan Admission and Anticipated Discharge Date Admission Date: April 22, 2024 Subjective Assessment & Plan (1) KATHARINA (acute kidney injury): Baseline creat 1 as of so current Creat of 3 is definitely KATHARINA. Urine sediment is very active--can happen with ATN or also UTI. Etiology is pre renal type and/or Some degree of ATN. He was on Lisinopril and also taking NSAIDS and Likely had Low BP with very poor oral intake. he lost about 10 lbs in 1 week. So this combination of meds/Low BP/Poor PO intake likely caused the KATHARINA. Already ruled out hydronephrosis by CT. NO need of renal US good to see creat came down from 3 to 2 now. Normal na now but still has somewhat low K 3.4 he is eating and drinking now so its fine to stop IV fluids. Avoid nephrotoxic drugs and agents. No NSAIDS, Diuretics for now. Hold Lisinopril Daily CBC and renal panel. For now will assume low PLT from Sepsis. PLT went up a bit. repeat UA and also do prot/creat tomorrow (2) Urinary tract infection: based on UA findings. Pending urine C/s. Currently on Dapto + Zosyn which can be continued for now pending urine C/s. (3) Bilirubinemia: Unclear etiology. Good to see Bilirubin dropped from 6 to 3.8 on repeat test though. Reviewed GI note S--feeling better now. Making urine. Labs better Physical Exam Constitutional: Awake and alert. No resp Distress HEENT Slight icterus present Neck: Supple. No JVD Respiratory: normal respiratory effort, lungs clear to auscultation Cardiovascular: RRR, no murmur, no edema Chest (Breasts): Chest: normal inspection of chest Gastrointestinal (Abdomen): soft, tender at RUQ Musculoskeletal: Head/Neck/Chest: normocephalic, head atraumatic and neck supple Skin: No rash Neurologic: PERRL, Normal speech. Awake and alert. Not confused. Psychiatric: A+Ox3, euthymic affect Results & Data Vital Signs (Past 12 Hours) Vital Signs Temp Pulse Pulse Resp BP Pulse Ox O2 Del Method 04/23/24 15:54 37.3 C 84 17 134/81 98 Room Air 04/23/24 14:55 91 H 04/23/24 11:25 36.9 C 81 19 123/72 95 Room Air 04/23/24 08:01 36.7 C 83 18 123/75 93 Room Air 04/23/24 07:27 89 04/23/24 07:17 Room Air
[2024-04-23] MEDS: GADOBUTROL 7.5ML VIAL IV ONE (16:39)
--- NOTE | 2024-04-23 16:52 | Magnetic Resonance Report ---
MRI of the brain performed with and without IV contrast History: Headache Comparison: None Technique: Multiplanar T1 weighted, axial T2/FLAIR, and susceptibility images were obtained without intravenous contrast. Following intravenous gadolinium based contrast administration, axial T2 weighted, diffusion, and T1-weighted images were obtained. Findings: No evidence for intracranial mass lesion, mass-effect, midline shift, or abnormal extra-axial fluid collection. Postcontrast images demonstrate no abnormal intracranial enhancement. The orbits are grossly unremarkable. The ventricles and sulci are within normal limits for age. No abnormally reduced diffusion or evidence for acute infarct. Normal intravascular flow voids. Minimal fluid in the mastoid air cells. Impression: Normal brain MRI with and without IV contrast Electronically signed by Juan Davey 04-23-2024 4:51 PM
[2024-04-23] MEDS: ACETAMINOPHEN 1,000 MG/100 ML VIAL IV STA (19:37)
[2024-04-24] MEDS: ACETAMINOPHEN 325 MG TAB PO STA (00:41)
[2024-04-24 07:36] LABS: Basophils # (auto) 0.06 K/uL (0.00-0.20); Basophils % (auto) 0.3 %; Eosinophils # (auto) 0.04 K/uL (0.00-0.50); Eosinophils % (auto) 0.2 %; Hematocrit (blood only) 34.4 % (42.0-52.0); Hemoglobin 12.2 g/dl (14.0-18.0); Immature Granulocytes % (auto) 1.4 %; Lymphocytes # (auto) 0.95 K/uL (1.20-3.40); Lymphocytes % (auto) 4.4 %; Mean Corpuscular Hemoglobin 28.6 pg (25.0-34.0); Mean Corpuscular Hgb Conc 35.5 g/dL (32.0-36.0); Mean Corpuscular Volume 80.8 fL (80.0-100.0); Mean Platelet Volume 11.5 fL (9.4-12.4); Monocytes # (auto) 1.13 K/uL (0.11-0.59); Monocytes % (auto) 5.3 %; Neutrophils # (auto) 18.95 K/uL (1.40-6.50); Neutrophils % (auto) 88.4 %; Platelet Count 70 K/uL (130-400); RDW Coefficient of Variation 13.3 % (11.5-14.5); RDW Standard Deviation 39.2 fL (36.4-46.3); Red Blood Count 4.26 M/uL (4.70-6.10); White Blood Count 21.43 K/ul (4.8-10.8)
[2024-04-24 08:42] LABS: Albumin Level 2.6 gm/dl (3.4-5.0); BUN Creatinine Ratio 20.2 (10-20); Bilirubin,Total 6.1 mg/dl (0.2-1.0); Calcium 8.1 mg/dl (8.6-10.3); Creatinine Clr Calc Pharmacy 44.1 ml/min; Globulin 2.5 gm/dl (2.5-4.0); Magnesium 2.2 mg/dl (1.7-2.4); Phosphorus 3.6 mg/dl (2.5-4.9); Potassium 3.7 mmol/L (3.5-5.1); Total Protein 5.1 gm/dl (6.0-8.3)
[2024-04-24 08:53] LABS: Adenovirus F 40/41 PCR Not Detected (NotDetected); Astrovirus PCR Not Detected (NotDetected); Campylobacter PCR Not Detected (NotDetected); Cryptosporidium PCR Not Detected (NotDetected); Cyclospora cayetanensis PCR Not Detected (NotDetected); Entamoeba histolytica PCR Not Detected (NotDetected); Enteroaggregative E.coli(EAEC) Not Detected (NotDetected); Enteropathogenic E.coli (EPEC) Not Detected (NotDetected); Enterotoxigenic E.coli (ETEC) Not Detected (NotDetected); Giardia lamblia PCR Not Detected (NotDetected); Norovirus GI/GII PCR Not Detected (NotDetected); Plesiomonas shigelloides PCR Not Detected (NotDetected); Rotavirus A PCR Not Detected (NotDetected); Salmonella PCR Not Detected (NotDetected); Sapovirus PCR Not Detected (NotDetected); Shiga-like Toxin E.coli (STEC) Not Detected (NotDetected); Shigella/Enteroinvasive E.coli Not Detected (NotDetected); Vibrio cholerae PCR Not Detected (NotDetected); Vibrio species PCR Not Detected (NotDetected); Yersinia enterocolitica PCR Not Detected (NotDetected)
--- NOTE | 2024-04-24 09:45 | Nephrology Progress Note ---
Date of Service April 24, 2024 Assessment & Plan (1) KATHARINA (acute kidney injury): Plan: Further improving non oliguric Stage 3 KATHARINA on CKD. Baseline creat 1 as of Mar 2024 w/ presenting 04/22 Creat of 3.1. Urine sediment is very active w/ granular casts--can happen with ATN or also UTI but cx negative. Etiology is pre renal type and/or Some degree of ATN. He was on Lisinopril and also taking NSAIDS and Likely had Low BP with very poor oral intake. he lost about 10 lbs in 1 week before admission. So this combination of meds/Low BP/Poor PO intake likely caused the KATHARINA. Already ruled out hydronephrosis by CT. Initially associated with mild hyponatremia and hypokalemia which have both resolved. off of IVF; >>>remains on daptomycin and zosyn >> wean as indicated; all cxs negative Avoid nephrotoxic drugs and agents. No NSAIDS, Diuretics for now. >>cont to hold Lisinopril >>Daily CBC and renal panel. >no indication at this point to quuantify proteinuria For now will assume low PLT from Sepsis (2) Bilirubinemia: Plan: Unclear etiology. bilirubin uptrending today (3) Liver abscess: Plan: w/ low grade F this evenign and new mass > for IR drainage of abscess Admission and Anticipated Discharge Date Admission Date: April 22, 2024 Subjective dramatic worsening of leukocytosis today; bilirubin climbing; feels weak and states his thinking is "loopy." concern for liver abscess and for transfer to [facility] later this evening for IR drainage; denies sob Review of Systems 2 Review of Systems: All systems reviewed & are unremarkable except as noted in Subjective Physical Exam 2 Constitutional: well developed, well nourished, + ill appearing, + frail appearing and cooperative; no acute distress Eyes: EOM intact bilaterally ENMT: Mouth: + dry oral mucous membranes Respiratory: normal respiratory effort Auscultation: + diminished lung sounds Cardiovascular: Rate/Rhythm: regular rhythm and + tachycardic Extremities: no edema Gastrointestinal (Abdomen): Inspection/Auscultation: normal bowel sounds P ercussion/Palpation: abdomen soft; abdomen nontender (occasional jag of pain w/ mvt) Musculoskeletal: Extremities: strength 5/5 throughout Skin: no rashes, warm and dry Neurologic: guzman, fluent speech, no tremor but too weak to sit up on first try Psychiatric: Orientation: alert and oriented x 3 Results & Data Vital Signs (Past 12 Hours) Vital Signs Temp Pulse Pulse Resp BP Pulse Ox O2 Del Method 04/24/24 07:45 36.9 C 74 18 124/70 95 Room Air 04/24/24 07:15 70 04/24/24 03:00 37.4 C 81 18 104/65 96 Room Air 04/24/24 00:23 37.8 C H 04/23/24 23:40 37.9 C H 97 H 20 96/56 L 94 Room Air 04/23/24 22:29 107 H Laboratory Results 04/24/24 07:07 04/24/24 07:07 bilirubin up
--- NOTE | 2024-04-24 13:03 | Hospitalist Progress Note ---
Date of Service April 24, 2024 Assessment & Plan (1) Sepsis: Plan Pt is a 64yoM w/ hx of HTN, HLD, pAfib, GERD, Joaquin's esophagus, BPH and who presented with chills, weakness and generalized malaise. Had a recent liver biopsy on 04/11/2024 and also found to have a urinary tract infection. Sepsis Possible Complicated Urinary Tract Infection Pt with leukocytosis, tachycardia on admission, likely urinary infection. Recent procedure as well Recent liver biopsy procedure Respiratory viral panel negative Chest XRAY unremarkable UA suggestive of infection, urine cx NGTD Lyme screen negative Blood Cx x 2 sets with 1/4 bottles growing gram negative bacilli Continue IV Zosyn and Daptomycin with doxycycline Follow Cx and adjust abx as needed Continue to monitor 04/24/24- Pt with worsening leukocytosis and reporting episodes of chills. Having a persistent headache that he notes no medication was able to help. Pt agreeable to further testing with Lumbar puncture given DELEON and unknown source, repeat blood cultures, fungal cultures, tick borne smear, stool cultures, CT chest and repeat CT abd/pelvis. Infectious Disease also consulted, appreciate recs. Doxycycline added to Zosyn and Daptomycin for empiric coverage. Elevated Liver Enzymes Hx of recent liver biopsy R hepatic Lobe Density Had a recent liver biopsy on 04/11/2024 Liver enzymes significantly elevated-t bili 6.1, direct bili 3.7, AST 39, ALT 27, Alk phos 198 Liver biopsy previously done noting only steatosis CT abd/pelvis noting R hepatic lobe hypodensity that likely correlates to area biopsied, no hemorrhage, noted splenomegaly Liver US noting hepatic steatosis, and a complex hypoechoic lesion in the R liver noting metastasis vs. 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 in the R liver Follows with [facility]- declined transfer on admission Consulted GI, appreciate further recs -04/24/24- bilirubin significantly elevated once more, GI ordered repeat CT abd/pelvis with oral and IV contrast, follow Thrombocytopenia Anemia Noted platelet levels of 71K to 78K Likely in setting of sepsis above Peripheral smear pending Hyponatremia Mild Currently resolved Hypokalemia Replete as needed Acute Kidney Disease Cr 3.05 on admission previous Cr 1 in March 2024 per outpt records Pt received IVF in ED, will continue Avoid contrast/ nephrotoxic agents, hold lisinopril Monitor BMP Nephrology consulted improving Laryngitis Resp panel negative Chest XRAY unremarkable On abx as above Flonase prn Improving Headache Hx of Migraines Pt with intractable weeklong headache Head CT unremarkable MRI ordered and pending prn Imirtex Pt agreeable to LP on 04/24/24 Paroxysmal Atrial fibrillation EKG in ED noting sinus rhythm hold [facility] HTN on lisinopril and amlodipine-currently on hold due to lower BPs On metoprolol as noted above Continue to monitor GERD Joaquin's esophagus cont. home PPI, pepcid Diet:HH DVT ppx : SCDs (home eliquis on hold) Dispo: PT/OT for further recs Admission and Anticipated Discharge Date Admission Date: April 22, 2024 Subjective Pt was seen laying in bed Discussion of increasing leukocytosis and worsening liver enzymes once more Discussion of his headache Agreeable to reimaging, LP and further evaluation by ID Review of Systems Review of Systems: All systems reviewed & are unremarkable except as noted in Subjective Physical Exam Physical Exam: General: Alert, oriented. No acute distress Skin: No noted rashes or bruises Psych: Appropriate mood and affect HEENT: NC/AT CV: RRR Resp: Breath sounds clear bilaterally, no increased effort of breathing Abdomen:Soft, tender in right quadrants Extremities: No edema in lower extremities bilaterally. Results & Data Results & Data Vital Signs (Past 12 Hours) Vital Signs Temp Pulse Pulse Resp BP Pulse Ox O2 Del Method 04/24/24 11:00 36.4 C L 79 18 139/78 94 Room Air 04/24/24 07:45 36.9 C 74 18 124/70 95 Room Air 04/24/24 07:15 70 04/24/24 03:00 37.4 C 81 18 104/65 96 Room Air
--- NOTE | 2024-04-24 13:07 | Gastroenterology Progress Note ---
Date of Service April 24, 2024 Assessment & Plan (1) History of liver biopsy: (2) Hyperbilirubinemia: Plan Patient feels well from GI standpoint, but he did have worsening leukocytosis and t bili. he does not feel symptomatic from GI standpoint currently. - continue to follow LFTs and leukocytosis. - May need to update imaging on liver. - Will discuss further with Dr. Branham, further recommendations to follow. Admission and Anticipated Discharge Date Admission Date: April 22, 2024 Supervising Physician Co-Signing Physician Notes Patient with liver biopsy on April 11 biopsy said to show fatty liver. Not entirely clear what the biopsy was for. Was there an ill-defined mass that we are currently seeing, or is the mass in the liver new. I will attempt to contact the performing physician Dr. Kerns, this presentation post liver biopsy and the timeframe is a little concerning for hepatic abscess. Potential pseudoaneurysm with secondary infected abscess. Continue broad-spectrum antibiotics. Repeat CT. Reviewed with nephrology they prefer no IV contrast. Potentially needs transfer. Subjective Patient is a 64 year old male with a past medical history of HTN, HLD, pAfib, GERD, Joaquin's esophagus, BPH and who presented to the ED with chills, weakness and generalized malaise. Had a recent liver biopsy on 04/11/2024 and also found to have a urinary tract infection. He admits he had felt well after his liver biopsy but then a few days later he just felt unwell. Today he did have a sudden spike in both wbc and t bili. He denies any abdominal pain, nausea, emesis, or heartburn. 04/24 wbc 21.4, hgb 12.2, hct 34.4, platelets 70. t bili 6.1, ast 49, ALT 36, ALK 225. CT 04/22/24 Ill-defined hypodensity in the right hepatic lobe may reflect the area that was biopsied. No evidence of hemorrhage. Splenomegaly. US 04/22/24 Hepatic steatosis. Complex hypoechoic lesion in the right liver measuring 3.2 x 5.0 x 4.1 cm with surrounding color Doppler flow. Metastasis/neoplasm is not excluded. Probable small meningiomas in the right parvin er. Review of Systems Review of Systems: All systems reviewed & are unremarkable except as noted in HPI & below Physical Exam Constitutional: WD/WN, vitals as above Respiratory: normal respiratory effort, lungs clear to auscultation Cardiovascular: Rate/Rhythm: regular rate and regular rhythm Gastrointestinal (Abdomen): normal bowel sounds, soft, nontender, no hepatosplenomegaly Psychiatric: Orientation: alert and oriented x 3 Affect: euthymic affect Results & Data Results & Data Vital Signs (Past 12 Hours) Vital Signs Temp Pulse Pulse Resp BP Pulse Ox O2 Del Method 04/24/24 11:00 97.5 F L 79 18 139/78 94 Room Air 04/24/24 07:45 98.4 F 74 18 124/70 95 Room Air 04/24/24 07:15 70 04/24/24 03:00 99.3 F 81 18 104/65 96 Room Air Coding Level of Care Code 08273 SUB INP/OBS CARE 2/35MIN Diagnoses History of liver biopsy Z98.890 Hyperbilirubinemia E80.6
[2024-04-24 13:53] LABS: Efaecalis Not Reported Not Detected (NotDetected); Efaecium Not Reported Not Detected (NotDetected); Lmonocyt Not Reported Not Detected (NotDetected); Staph lugdunensis Not Reported Not Detected (NotDetected); Staph spp. Not Reported Not Detected (NotDetected); Staphaureus Not Reported Not Detected (NotDetected); Staphepi Not Reported Not Detected (NotDetected); Strep agal(GrpB) Not Reported Not Detected (NotDetected); Strep pneum Not Reported Not Detected (NotDetected); Strep pyog (GrpA) Not Reported Not Detected (NotDetected); Strep spp Not Reported Not Detected (NotDetected)
[2024-04-24 13:54] LABS: A calco-baum cmplx NotReported Not Detected (NotDetected); Bact fragilis Not Reported Not Detected (NotDetected); Blood Culture Id Panel PCR Panel Negative (NotDetected); C auris Not Reported Not Detected (NotDetected); Calbicans Not Reported Not Detected (NotDetected); Candida glabrata Not Reported Not Detected (NotDetected); Candida krusei Not Reported Not Detected (NotDetected); Cneoformans/gatti Not Reported Not Detected (NotDetected); Cparapsilosis Not Reported Not Detected (NotDetected); E cloacae compx Not Reported Not Detected (NotDetected); Enterobacterales Not Reported Not Detected (NotDetected); Escherichia coli Not Reported Not Detected (NotDetected); H influenzae Not Reported Not Detected (NotDetected); K aerogenes Not Reported Not Detected (NotDetected); Koxytoca Not Reported Not Detected (NotDetected); Kpneumoniae grp Not Reported Not Detected (NotDetected); N meningitidis Not Reported Not Detected (NotDetected); P aeruginosa Not Reported Not Detected (NotDetected); Proteus spp Not Reported Not Detected (NotDetected); Salmonella spp Not Reported Not Detected (NotDetected); Stenmaltophilia Not Reported Not Detected (NotDetected)
[2024-04-24] MEDS: DAPTOmycin 450 MG in SYRINGE 0 ML IV SCH (15:23)
[2024-04-24] MEDS ORDERED: HYDROmorphone INJ 0.5 MG/0.5 ML SYR IV PRN (15:28)
--- NOTE | 2024-04-24 17:04 | CT Scan Report ---
EXAM: CT Chest Without Intravenous Contrast INDICATION: Sepsis TECHNIQUE: Axial computed tomography images of the chest without intravenous contrast. Sagittal and coronal reformatted images were created and reviewed. This CT exam was performed using one or more of the following dose reduction techniques: automated exposure control, adjustment of the mA and/or kV according to patient size, and/or use of iterative reconstruction technique. COMPARISON: No relevant prior studies available. FINDINGS: Limitations: None. Lungs and pleural spaces: There are 2 adjacent noncalcified nodules in the right upper lobe the larger measuring 0.7 x 0.4 cm series 3 image 19. 3 mm noncalcified right upper lobe nodule series 3 image 13. There is focal thickening of the anterior minor fissure. There is subpleural groundglass density in the right lower lobe measuring 0.6 x 0.5 cm series 3 image 25. No bronchiectasis, honeycombing or reticulation. No pleural effusion or pneumothorax. Heart: No abnormality noted. Thyroid: No abnormality noted. Bones/joints: No acute changes. Soft tissues: No significant abnormality noted. Vasculature: Atherosclerotic calcification of the aorta and branches. No aneurysm. Lymph nodes: No enlarged lymph nodes. Spleen: Mild splenomegaly. IMPRESSION: Few noncalcified right upper lobe pulmonary nodules measuring up to 7 mm. Fleischner Society Guidelines for low-risk patients recommend, follow-up chest CT at 3-6 months. If unchanged consider an additional follow-up CT at 18-24 months. For high-risk patients (smoking history or other known risk factors) initial follow-up chest CT at 3-6 months and if unchanged, 18-24 months. ACT 112: Negative or not required by law. Electronically signed by Danna Pinto 04-24-2024 5:03 PM
[2024-04-24] MEDS: ADVANCED PROBIOTIC 625 MG CAPSULE PO SCH (17:55)
--- NOTE | 2024-04-24 18:12 | Communication Note ---
Date of Service: April 24, 2024 Reviewed with , states the original biopsy was for an elevated alkaline phosphatase. Showed fatty liver. Based on this, the mass is new. Likely represents hepatic abscess. Based on his current clinical course this needs to drain. Pseudoaneurysm is also on the differential. Reviewed with hospitalist Mony Arzola. Patient needs transferred for IR procedure.
--- NOTE | 2024-04-24 19:30 | Discharge Summary ---
Discharge Summary Date of Service April 24, 2024 Principal Dx & Hospital Course #1 = Principal Diagnosis (1) Sepsis: Plan Pt is a 64yoM w/ hx of HTN, HLD, pAfib, GERD, Joaquin's esophagus, BPH and who presented with chills, weakness and generalized malaise. Had a recent liver biopsy on 04/11/2024. CT abd pelvis on 04/22/24 noting: "...There is an irregular, poorly defined hypodense mass in the right hepatic lobe measuring approximately 4.2 x 2.7 x 3.8 cm. There is no associated hemorrhage or gas. The liver otherwise appears normal....1. Ill-defined hypodensity in the right hepatic lobe may reflect the area that was biopsied. No evidence of hemorrhage. 2. Splenomegaly...." Per GI Dr Víctor Branham: "...Reviewed with , states the original biopsy was for an elevated alkaline phosphatase. Showed fatty liver. Based on this, the mass is new. Likely represents hepatic abscess. Based on his current clinical course this needs to drain. Pseudoaneurysm is also on the differential...Patient needs transferred for IR procedure...." Pt was septic with leukocytosis as high as 21K, tachycardic, rigors, low platelets. Treated with IV Zosyn, Daptomycin (in setting of KATHARINA) and doxycycline. Blood Cultures with 1/4 bottles growing gram neg bacilli. Fungal cultures pending. Nephrology was following for an KATHARINA with cr 3.05 to 1.78 Pt also with persistent headache- Head CT and MRI brain unremarkable. LP was ordered but not completed before transfer. Case discussed with Dr Kerns from Gastroenterology as well as IR and hospitalist service at [facility] who were agreeable to transfer for possible IR drainage of likely hepatic abscess. Likely cause of sepsis. She was previously treated as follows: Sepsis Possible Complicated Urinary Tract Infection Pt with leukocytosis, tachycardia on admission, likely urinary infection. Recent procedure as well Recent liver biopsy procedure Respiratory viral panel negative Chest XRAY unremarkable UA suggestive of infection, urine cx NGTD Lyme screen negative Blood Cx x 2 sets with 1/4 bottles growing gram negative bacilli Continue IV Zosyn and Daptomycin with doxycycline Follow Cx and adjust abx as needed Continue to monitor 04/24/24- Pt with worsening leukocytosis and reporting episodes of chills. Having a persistent headache that he notes no medication was able to help. Pt agreeable to further testing with Lumbar puncture given DELEON and unknown source, repeat blood cultures, fungal cultures, tick borne smear, stool cultures, CT chest and repeat CT abd/pelvis. Infectious Disease also consulted, appreciate recs. Doxycycline added to Zosyn and Daptomycin for empiric coverage. Elevated Liver Enzymes Hx of recent liver biopsy R hepatic Lobe Density Had a recent liver biopsy on 04/11/2024 Liver enzymes significantly elevated-t bili 6.1, direct bili 3.7, AST 39, ALT 27, Alk phos 198 Liver biopsy previously done noting only steatosis CT abd/pelvis noting R hepatic lobe hypodensity that likely correlates to area biopsied, no hemorrhage, noted splenomegaly Liver US noting hepatic steatosis, and a complex hypoechoic lesion in the R liver noting metastasis vs. 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 in the R liver Follows with [facility] [place] [facility]- declined transfer on admission Consulted GI, appreciate further recs -04/24/24- bilirubin significantly elevated once more, GI ordered repeat CT abd/pelvis with oral and IV contrast, follow Thrombocytopenia Anemia Noted platelet levels of 71K to 78K Likely in setting of sepsis above Peripheral smear pending Hyponatremia Mild Currently resolved Hypokalemia Replete as needed Acute Kidney Disease Cr 3.05 on admission previous Cr 1 in March 2024 per outpt records Pt received IVF in ED, will continue Avoid contrast/ nephrotoxic agents, hold lisinopril Monitor BMP Nephrology consulted improving Laryngitis Resp panel negative Chest XRAY unremarkable On abx as above Flonase prn Improving Headache Hx of Migraines Pt with intractable weeklong headache Head CT unremarkable MRI ordered and pending prn Imirtex Pt agreeable to LP on 04/24/24 Paroxysmal Atrial fibrillation EKG in ED noting sinus rhythm hold Eliquis as discussed with GI at [facility] [place] cont. metoprolol HTN on lisinopril and amlodipine-currently on hold due to lower BPs On metoprolol as noted above Continue to monitor GERD Joaquin's esophagus cont. home PPI, pepcid Diet:HH DVT ppx : SCDs (home eliquis on hold) Dispo: PT/OT for further recs Notes For Next Care Provider Pt transferred to [facility] for IR services per recs of GI for possible liver abscess Medication Changes From Visit As above Admission HPI Per Admitting Provider 64 M w/ hx of HTN, HLD, pAfib, GERD, Joaquin's esophagus, BPH and hx of elevated Alk Phos level who presents with chills, weakness, feeling sick since having liver biopsy on 04/11/2024. Liver biopsy was obtained due to elevated Alk phos levels. Biopsy showed fatty liver but no other concerning pathology. Pt has hx of cholecystectomy in 11/2023. Alk phos level in March per outpt chart review was 191, also Tbili was 1 and Creatinine 1. Last CBC noted per outpt chart review - 10/2023 - hgb 16, WBC 8.6K, Plt 234. He presents in ED with above symptoms and also some abdominal cramping on right side. No abdominal images obtained initially - discussed w/ ED provider to obtain CT abd/pelvis. Will have to do w/o contrast as he has KATHARINA, with creatinine of 3 , BUN 51 (compared to Cr of 1 from month ago). His Tbili is 6.1. His plt count is 71. WBC 12.5K. His Alk phos today is 198. Currently pt is lying in bed in [facility], his is present at the bedside. Abdomen soft, but somewhat tender in right upper quadrant. Reports having severe chills, but unaware of fever as they don't have a thermometer at home (per ). also reports having pale stools. He is alert and oriented and able to provide history. I updated the pt that I discussed w/ GI Dr. Corea (who also reviewed labs and CT abd) and would recommend possible transfer. I was then updated by ED provider - who contacted [facility] regarding transfer that pt is not accepted at this time, recommend monitoring H&H and bili, US liver. Hold Eliquis. Admission Exam Per Admitting Provider Constitutional: WD/WN, vitals as above Eyes: PERRL, conjunctivae normal, anicteric sclerae Neck: normal visual inspection Respiratory: normal respiratory effort, lungs clear to auscultation Cardiovascular: RRR, no murmur, no edema Chest (Breasts): Chest: normal inspection of chest Gastrointestinal (Abdomen): soft, tender at RUQ Musculoskeletal: Head/Neck/Chest: normocephalic, head atraumatic and neck supple Skin: warm, + jaundice Neurologic: PERRL, EOMI, accommodation nl, no face palsy, no dysarthria Psychiatric: A+Ox3, euthymic affect Discharge Exam General: Alert, oriented. No acute distress Skin: No noted rashes or bruises Psych: Appropriate mood and affect HEENT: NC/AT CV: RRR Resp: Breath sounds clear bilaterally, no increased effort of breathing Abdomen:Soft, tender in right quadrants Extremities: No edema in lower extremities bilaterally. Updated Medication List Medication Instructions Recorded Confirmed Type amlodipine 5 mg tablet 5 mg PO HS 11/30/23 04/22/24 History apixaban 5 mg tablet (Eliquis) 5 mg PO BID 11/30/23 04/22/24 History atorvastatin 10 mg tablet 10 mg PO QAM 11/30/23 04/22/24 History famotidine 20 mg tablet 20 mg PO HS 11/30/23 04/22/24 History lisinopril 10 mg tablet 10 mg PO QAM 11/30/23 04/22/24 History metoprolol succinate 50 mg 50 mg PO HS 11/30/23 04/22/24 History tablet,extended release 24 hr pantoprazole 20 mg tablet,delayed 20 mg PO BID 11/30/23 04/22/24 History release Hospital Stay Data Consultations 04/22/24 09:44 Consult Nephrology Routine 04/22/24 09:56 Consult Gastroenterology Routine 04/24/24 15:09 Consult Infectious Diseases Routine Diagnostic Imagining Performed 04/22/24 07:45 CT head/brain wo con Stat 04/22/24 09:40 CT abd pelvis wo con Stat 04/22/24 11:22 US liver Urgent 04/23/24 15:35 MRI Brain [MR brain wo/w con] Urgent 04/24/24 15:24 CT Abd and Pelvis [CT abd pelvis wo con] Urgent CT chest diagnostic wo con Urgent 04/24/24 16:12 CT Abd and Pelvis [CT abd pelvis oral and IV con] Urgent 04/25/24 08:00 IR lumbar puncture diagnostic Routine Chest X-Ray 04/22/24 07:45 EXAM: XR chest 1V portable CLINICAL HISTORY: Weakness. TECHNIQUE: An X-ray image of the chest is obtained in AP projection. COMPARISON: 07/21/2021 CR. FINDINGS: Pulmonary Parenchyma: Lungs are clear bilaterally. No evidence of consolidation, collapse, or focal opacities. No pulmonary nodules are identified. No evidence of pleural effusion or pleural thickening. Heart and Mediastinum: Heart size and shape are normal. No mediastinal widening or masses. No hilar or mediastinal lymphadenopathy. Bony Thorax: Bony thorax appears intact without fractures or deformities. Soft Tissues: Soft tissues overlying the chest wall are unremarkable. IMPRESSION: 1. No acute cardiopulmonary abnormalities are identified. 2. No interval change in comparison with CR on 07/21/2021. Electronically signed by Michelle Nash 04-22-2024 08:[address] 04/22/24 07:45 EXAM: CT Head Without Intravenous Contrast INDICATION: Headache TECHNIQUE: Axial computed tomography images of the head/brain without intravenous contrast. Sagittal and/or coronal reformats are provided. Sagittal and coronal reformatted images were created and reviewed. This CT exam was performed using one or more of the following dose reduction techniques: automated exposure control, adjustment of the mA and/or kV according to patient size, and/or use of iterative reconstruction technique. COMPARISON: 07/21/2021 FINDINGS: Limitations: None. Brain and extra-axial spaces: No abnormality noted. No hemorrhage. No significant white matter disease. No edema. No ventriculomegaly. Bones/joints: No acute changes. Soft tissues: No significant abnormality noted. Vasculature: No acute abnormality noted. Sinuses: No layering fluid in the visualized portions of the paranasal sinuses. Mastoid air cells: No mastoid effusion. Orbits: No significant abnormality noted. IMPRESSION: No abnormality noted. ACT 112: Negative or not required by law. Electronically signed by Danna Pinto 04-22-2024 08:36 AM Abdomen/Pelvis CT 04/22/24 09:40 EXAM: CT Abdomen and Pelvis Without Intravenous Contrast INDICATION: Liver biopsy. Acute kidney insufficiency. TECHNIQUE: Axial computed tomography images of the abdomen and pelvis without intravenous contrast. Sagittal and coronal reformatted images were created and reviewed. This CT exam was performed using one or more of the following dose reduction techniques: automated exposure control, adjustment of the mA and/or kV according to patient size, and/or use of iterative reconstruction technique. COMPARISON: Right upper quadrant ultrasound 09/08/2014 FINDINGS: Limitations: None. Lung bases: No abnormality noted. Pleural space: No visualized pleural effusion or pneumothorax. Heart: Mild cardiomegaly. No pericardial effusion. Mediastinum: No abnormality noted. ABDOMEN: Liver: There is an irregular, poorly defined hypodense mass in the right hepatic lobe measuring approximately 4.2 x 2.7 x 3.8 cm. There is no associated hemorrhage or gas. The liver otherwise appears normal. Gallbladder and bile ducts: Cholecystectomy. No ductal dilation or stone noted. Pancreas: No pancreatic mass, calcification, inflammation or ductal dilation noted. Spleen: The spleen is enlarged to approximately 13.6 cm long. Adrenals: No significant abnormality noted. Kidneys and ureters: Simple right renal cyst/s. No simple cyst follow-up necessary. Left kidney appears normal. No renal stone, hydronephrosis or perinephric fluid. The left kidney appears normal. Stomach and bowel: Hyperdense material in the stomach consistent with ingested contents. PELVIS: Appendix: No findings to suggest acute appendicitis. Bladder: Appears normal for the degree of filling. No stones or inflammation. No large mass. Masses may not be detected in the absence of opacification. Reproductive: No abnormalities noted. ABDOMEN and PELVIS: Intraperitoneal space: No free air. No significant fluid collection. Bones/joints: No acute changes. Soft tissues: Umbilical hernia containing fat. Vasculature: No abdominal aortic aneurysm. Lymph nodes: No pathologically enlarged lymph nodes. IMPRESSION: 1. Ill-defined hypodensity in the right hepatic lobe may reflect the area that was biopsied. No evidence of hemorrhage. 2. Splenomegaly. ACT 112: Negative or not required by law. Electronically signed by Danna Pinto 04-22-2024 10:25 AM Liver Ultrasound 04/22/24 11:22 Exam(s): US LIVER EXAM: US Abdomen Limited, Right Upper Quadrant CLINICAL HISTORY: Reason for exam: abnormal CT scan, s/p biopsy, Tbili elevated. TECHNIQUE: Real-time ultrasound of the right upper quadrant with image documentation. COMPARISON: Right upper quadrant ultrasound on 09/08/2014. CT abdomen/pelvis on 04/22/2024. FINDINGS: Liver: Liver measures 16.0 cm. Increased echogenicity of the liver suggestive of hepatic steatosis. Complex hypoechoic lesion in the right liver measuring 3.2 x 5.0 x 4.1 cm with surrounding color Doppler flow. Small hyperechoic lesions in the right liver measuring up to 7 mm, probably representing hemangiomas. No intrahepatic bile duct dilation. Gallbladder: Prior cholecystectomy. Common bile duct: Unremarkable as visualized. No stones. No dilation. Normal common bile duct measuring 5.2 mm. Pancreas: Visualized portions of the pancreas are grossly unremarkable, but evaluation is limited by overlying bowel gas. Right kidney: No hydronephrosis or stone. Renal cyst measuring up to 2.1 cm. Portal vein: Patent with normal direction of flow. Free fluid: No ascites. IMPRESSION: 1. Hepatic steatosis. 2. Complex hypoechoic lesion in the right liver measuring 3.2 x 5.0 x 4. 1 cm with surrounding color Doppler flow. Metastasis/neoplasm is not excluded. 3. 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 Electronically signed by: Verena Mills M.D. 04/23/24 02:03 AM Brain MRI 04/23/24 15:35 MRI of the brain performed with and without IV contrast History: Headache Comparison: None Technique: Multiplanar T1 weighted, axial T2/FLAIR, and susceptibility images were obtained without intravenous contrast. Following intravenous gadolinium based contrast administration, axial T2 weighted, diffusion, and T1-weighted images were obtained. Findings: No evidence for intracranial mass lesion, mass-effect, midline shift, or abnormal extra-axial fluid collection. Postcontrast images demonstrate no abnormal intracranial enhancement. The orbits are grossly unremarkable. The ventricles and sulci are within normal limits for age. No abnormally reduced diffusion or evidence for acute infarct. Normal intravascular flow voids. Minimal fluid in the mastoid air cells. Impression: Normal brain MRI with and without IV contrast Electronically signed by Juan Davey 04-23-2024 4:[address] 04/24/24 15:24 EXAM: CT Chest Without Intravenous Contrast INDICATION: Sepsis TECHNIQUE: Axial computed tomography images of the chest without intravenous contrast. Sagittal and coronal reformatted images were created and reviewed. This CT exam was performed using one or more of the following dose reduction techniques: automated exposure control, adjustment of the mA and/or kV according to patient size, and/or use of iterative reconstruction technique. COMPARISON: No relevant prior studies available. FINDINGS: Limitations: None. Lungs and pleural spaces: There are 2 adjacent noncalcified nodules in the right upper lobe the larger measuring 0.7 x 0.4 cm series 3 image 19. 3 mm noncalcified right upper lobe nodule series 3 image 13. There is focal thickening of the anterior minor fissure. There is subpleural groundglass density in the right lower lobe measuring 0.6 x 0.5 cm series 3 image 25. No bronchiectasis, honeycombing or reticulation. No pleural effusion or pneumothorax. Heart: No abnormality noted. Thyroid: No abnormality noted. Bones/joints: No acute changes. Soft tissues: No significant abnormality noted. Vasculature: Atherosclerotic calcification of the aorta and branches. No aneurysm. Lymph nodes: No enlarged lymph nodes. Spleen: Mild splenomegaly. IMPRESSION: Few noncalcified right upper lobe pulmonary nodules measuring up to 7 mm. Fleischner Society Guidelines for low-risk patients recommend, follow-up chest CT at 3-6 months. If unchanged consider an additional follow-up CT at 18-24 months. For high-risk patients (smoking history or other known risk factors) initial follow-up chest CT at 3-6 months and if unchanged, 18-24 months. ACT 112: Negative or not required by law. Electronically signed by Danna Pinto 04-24-2024 5:03 PM Discharge Instructions Given to Patient (Per Discharging Provider) Pt is a 64yoM w/ hx of HTN, HLD, pAfib, GERD, Joaquin's esophagus, BPH and who presented with chills, weakness and generalized malaise. Had a recent liver biop sy on 04/11/2024. CT abd pelvis on 04/22/24 noting: "...There is an irregular, poorly defined hypodense mass in the right hepatic lobe measuring approximately 4.2 x 2.7 x 3.8 cm. There is no associated hemorrhage or gas. The liver otherwise appears normal....1. Ill-defined hypodensity in the right hepatic lobe may reflect the area that was biopsied. No evidence of hemorrhage. 2. Splenomegaly...." Per GI Dr Víctor Branham: "...Reviewed with , states the original biopsy was for an elevated alkaline phosphatase. Showed fatty liver. Based on this, the mass is new. Likely represents hepatic abscess. Based on his current clinical course this needs to drain. Pseudoaneurysm is also on the differential...Patient needs transferred for IR procedure...." Pt was septic with leukocytosis as high as 21K, tachycardic, rigors, low platelets. Treated with IV Zosyn, Daptomycin (in setting of KATHARINA) and doxycycline. Blood Cultures with 1/4 bottles growing gram neg bacilli. Fungal cultures pending. Nephrology was following for an KATHARINA with cr 3.05 to 1.78 Pt also with persistent headache- Head CT and MRI brain unremarkable. LP was ordered but not completed before transfer. Case discussed with Dr Kerns from Gastroenterology as well as IR and hospitalist service at [facility] who were agreeable to transfer for po ssible IR drainage of likely hepatic abscess. Likely cause of sepsis. Total Time Total Time Spent Total Time Spent (In Minutes): 60
[2024-04-24] MEDS: DOXYCYCLINE HYCLATE 100 MG CAP PO SCH (21:13)
[2024-04-24] MEDS ORDERED: PROMETHAZINE 6.25 MG/50.25 ML BAG IV STA (23:04)
[2024-04-24] MEDS ORDERED: PROMETHAZINE 6.25 MG/50.25 ML BAG IV PRN (23:04)
--- NOTE | 2024-04-24 23:40 | CT Scan Report ---
Exam(s): CT ABDOMEN + PELVIS Without Contrast Oral - High Density Amt: barium EXAM: CT Abdomen and Pelvis Without Intravenous Contrast CLINICAL HISTORY: Abnormal liver function tests TECHNIQUE: Axial computed tomography images of the abdomen and pelvis without intravenous contrast. CTDI is 21.94 mGy and DLP is 1223.79 mGy-cm. Automated exposure control was utilized for the study. A dose lowering technique was utilized adhering to the principles of ALARA. COMPARISON: CT April 22, 2024. FINDINGS: ABDOMEN: Liver: The liver margin is fairly smooth. There is an abnormal patchy low-density area in the lower aspect of the right lobe of the liver. This was present on the prior recent studies; however, it appears slightly larger measuring up to 5.0 x 5.3 cm in transverse dimensions. Gallbladder and bile ducts: Cholecystectomy. No ductal dilation. Pancreas: Unremarkable. No ductal dilation. Spleen: Splenomegaly with the spleen measuring at least 13.5 cm in craniocaudal length. Stable 2.1 cm rounded nodular soft tissue density appearing to project from the inferior aspect of the spleen. This may represent unusual splenic nodularity or small splenule. Adrenals: Unremarkable. No mass. Kidneys and ureters: Unremarkable. No obstructing stones. No hydronephrosis. Stomach and bowel: Unremarkable. No obstruction. No mucosal thickening. PELVIS: Appendix: No findings to suggest acute appendicitis. Bladder: Unremarkable. No stones. ABDOMEN and PELVIS: Intraperitoneal space: Unremarkable. No free air. No significant fluid collection. Bones/joints: No acute findings. Soft tissues: Unremarkable. Vasculature: Unremarkable. No abdominal aortic aneurysm. Lymph nodes: Unremarkable. No enlarged lymph nodes. IMPRESSION: Patchy area of abnormal low density in the lower aspect of the right lobe of the liver. This is nonspecific but appears slightly larger than on the prior recent study. Splenomegaly. Electronically signed by: Randy Ervin MD 04/24/24 23:39 PM
[2024-04-27 08:25] LABS: A calco-baum cmplx NotReported Not Detected (NotDetected); Bact fragilis Not Reported Not Detected (NotDetected); Blood Culture Id Panel See PCR Comment (NotDetected); C auris Not Reported Not Detected (NotDetected); Calbicans Not Reported Not Detected (NotDetected); Candida glabrata Not Reported Not Detected (NotDetected); Candida krusei Not Reported Not Detected (NotDetected); Cneoformans/gatti Not Reported Not Detected (NotDetected); Cparapsilosis Not Reported Not Detected (NotDetected); E cloacae compx Not Reported Not Detected (NotDetected); Efaecalis Not Reported Not Detected (NotDetected); Efaecium Not Reported Not Detected (NotDetected); Enterobacterales Not Reported Not Detected (NotDetected); Escherichia coli Not Reported Not Detected (NotDetected); H influenzae Not Reported Not Detected (NotDetected); K aerogenes Not Reported Not Detected (NotDetected); Koxytoca Not Reported Not Detected (NotDetected); Kpneumoniae grp Not Reported Not Detected (NotDetected); Lmonocyt Not Reported Not Detected (NotDetected); N meningitidis Not Reported Not Detected (NotDetected); P aeruginosa Not Reported Not Detected (NotDetected); Proteus spp Not Reported Not Detected (NotDetected); Salmonella spp Not Reported Not Detected (NotDetected); Staph lugdunensis Not Reported Not Detected (NotDetected); Staph spp. Not Reported Not Detected (NotDetected); Staphaureus Not Reported Not Detected (NotDetected); Staphepi Not Reported Not Detected (NotDetected); Stenmaltophilia Not Reported Not Detected (NotDetected); Strep agal(GrpB) Not Reported Not Detected (NotDetected); Strep pneum Not Reported Not Detected (NotDetected); Strep pyog (GrpA) Not Reported Not Detected (NotDetected); Strep spp Not Reported DETECTED (NotDetected)
[2024-04-27 08:53] LABS: Streptococcus spp DETECTED (NotDetected)
== END 2024-04-24 23:30 | disposition short-term general hospital (02) | DRG 871 ==
LOC: ED 07:13 → SUATTDRO 11:42 → 2S 11:42